=== PATIENT | male | born 1930 | race Caucasian/White ===

== ENCOUNTER 2017-07-12 21:38 | Inpatient (IN) | payer MEDICARE, OTHER ==
[2017-07-12 22:22] LABS: #Eosinphils 0.2 thou/uL (0.0-0.7); #Lymphocytes 1.6 thou/uL (1.20-3.40); #Monocytes 0.9 thou/uL (0.11-0.59); #Neutrophils 5.5 thou/uL (1.40-6.50); %Basophils 0.6 % (0.0-1.0); %Eosinophils 2.4 % (0.0-10.0); %Lymphocytes 19.3 % (21.0-51.0); %Monocytes 10.6 % (0.0-10.0); Hematocrit 32.9 % (42.0-52.0); Mean Platelet Volume 9.5 fL (7.4-10.4); Red Blood Cell (RBC) Count 3.22 mill/uL (4.70-6.10); White Blood Cell (WBC) Count 8.1 thou/uL (4.8-10.8)
--- NOTE | 2017-07-12 22:40 | RAD ---
PORTABLE UPRIGHT FRONTAL CHEST RADIOGRAPH 07/12/17 COMPARISON: None. HISTORY: Shortness of breath and cough. FINDINGS: The cardiac silhouette is enlarged. Midline sternotomy wires and mediastinal clips are present. There is perihilar and bibasilar interstitial prominence. Small bilateral pleural effusions noted. Pe rihilar and bibasilar air space disease is noted. IMPRESSION: Findings most consistent with interstitial and alveolar pulmonary edema. Infectious pneumonitis or a spiration cannot be excluded. Recommend followup imaging following treatment to document resolution. POS: [facility]
[2017-07-12 22:42] LABS: ALT (SGPT) 17 U/L (8-55); AST (SGOT) 20 U/L (5-34); Alkaline Phosphatase 92 U/L (40-150); Anion Gap 17 mmol/L (10-20); BUN (Urea Nitrogen) 96 mg/dL (8.4-25.7); Bilirubin, Total 0.6 mg/dL (0.2-1.2); CK (CPK) 87 U/L (30-200); Calc. Creatinine Clearance 0 mL/min (70-130); Calcium 8.7 mg/dL (7.8-10.44); Carbon Dioxide 19 mmol/L (23-31); Chloride 106 mmol/L (98-107); Estimated GFR-MDRD 13; Globulin 3.2 g/dL (2.4-3.5); Protein, Total 6.8 g/dL (5.8-8.1)
[2017-07-12 22:46] LABS: Troponin I 0.086 ng/mL (< 0.028)
[2017-07-12 23:54] LABS: Anion Gap 6 mmol/L (-14-95); Critical Call POC Critical Value; pH (Venous) 7.295 (7.35-7.45); vO2 Saturation-calc 77.2 % (0.0-100.0)
[2017-07-12] MEDS ORDERED: Albuterol Sulfate 2.5 mg/3 ml Neb ONE (23:56)
[2017-07-13] MEDS ORDERED: Furosemide 40 MG/4 ML VIAL ONE (00:13)
[2017-07-13] MEDS ORDERED: Furosemide 20 MG/2 ML VIAL ONE (00:13)
[2017-07-13] MEDS ORDERED: Insulin Regular 300 UNITS/3 ML VIAL ONE (00:14)
[2017-07-13] MEDS ORDERED: Sodium Bicarb 50 MEQ/50 ML Abboject 8.4% SYRINGE ONE (00:14)
[2017-07-13] MEDS ORDERED: Calcium Chloride 1 GM/10 ML Abboject SYRINGE ONE (00:14)
[2017-07-13 02:05] LABS: Troponin I 0.188 ng/mL (< 0.028)
[2017-07-13] MEDS ORDERED: Dextrose 50% Abboject 50 ML SYRINGE SLOW IVP PRN (02:24)
[2017-07-13] MEDS ORDERED: Dextrose 5% in Water 1,000 ML IV PRN (02:24)
[2017-07-13] MEDS ORDERED: Acetaminophen 325 MG TAB PO PRN (02:24)
[2017-07-13] MEDS ORDERED: Senokot 8.6 MG TAB PO PRN (02:24)
[2017-07-13] MEDS ORDERED: Guaifenesin DM 100-10/5 ML UDCUP PO PRN (02:24)
[2017-07-13 02:52] VITALS: BMI 26.9
[2017-07-13 05:19] LABS: #Lymphocytes 0.7 thou/uL (1.20-3.40); #Neutrophils 8.5 thou/uL (1.40-6.50); %Eosinophils 0.1 % (0.0-10.0); %Lymphocytes 7.2 % (21.0-51.0); %Monocytes 9.9 % (0.0-10.0); Hematocrit 32.2 % (42.0-52.0); Red Blood Cell (RBC) Count 3.14 mill/uL (4.70-6.10); White Blood Cell (WBC) Count 10.3 thou/uL (4.8-10.8)
--- NOTE | 2017-07-13 05:21 | HP ---
REASON FOR ADMISSION: Acute worsening of chronic kidney disease stage 4, metabolic acidosis, acute respiratory failure with hypoxia. HISTORY OF PRESENT ILLNESS: The patient gives history of shortness of breath, which was progressively worsening from last two weeks. Yesterday afternoon, it got worse to the point that he had to call EMS. Patient says he follows up with Dr. Himanshu Aparicio and his last three visits show that his kidney function is around 14% and thought it was stable. On a good day, the patient normally walks one mile, but yesterday was very short of breath. The patient lives at [facility] with his . He has no complaints of chest pain or palpitations. No complaints of fever or altered phlegm. Has some dry cough at present. PAST MEDICAL AND SURGICAL HISTORY: History of diabetes from last 42 years, CABG in 1998, dyslipidemia. CURRENT MEDICATIONS: The patient is on allopurinol 100 mg twice daily, Norvasc 5 mg daily, aspirin 81 mg daily, Lipitor 40 mg p.o. at bedtime, Nexium 40 mg p.o. daily, Lasix 20 mg p.o. daily, NovoLog sliding scale; NPH insulin 16 units before breakfast, 4 units before lunch and 5 units before supper; lisinopril 10 mg daily, metoprolol 50 mg twice daily, levothyroxine 112 mcg p.o. daily. ALLERGIES: To AMOXICILLIN and SULFA. PERSONAL HISTORY: Quit smoking pipe 30 years ago, but has smoked for nearly 20 years prior to that. Drinks one beer or a glass of wine daily. Does not abuse drugs. Lives with his at [facility]. FAMILY HISTORY: Mother of old age at the age of 83 years. Father at the age of 75 years. He has had history of COPD and stroke. The patient has 4 kids. 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 REVIEW OF SYSTEMS: The following complete review of systems was negative, unless otherwise mentioned in the HPI or below: Constitutional: Weight loss or gain, ability to conduct usual activities. Skin: Rash, itching. Eyes: Double vision, pain. ENT/Mouth: Nose bleeding, neck stiffness, pain, tenderness. Cardiovascular: Palpitations, dyspnea on exertion, orthopnea. Respiratory: Shortness of breath, wheezing, cough, hemoptysis, fever or night sweats. Gastrointestinal: Poor appetite, abdominal pain, heartburn, nausea, vomiting, constipation, or diarrhea. Genitourinary: Urgency, frequency, dysuria, nocturia. Musculoskeletal: Pain, swelling. Neurologic/Psychiatric: Anxiety, depression. Allergy/Immunologic: Skin rash, bleeding tendency. PHYSICAL EXAMINATION: GENERAL: The patient is an 87-year-old male who is currently not in any acute distress. VITAL SIGNS: Blood pressure 136/64, pulse 64 per minute, respiratory rate 20 per minute, temperature 98.4 degrees Fahrenheit, saturating 94% on nonrebreather and 80% on room air. NECK: Supple, no elevated JVD. HEENT: Eyes: Extraocular muscles intact. Pupils reacting to light. Oral cavity, mucous membranes are moist. No exudates or congestion. CARDIOVASCULAR: S1, S2 heard. Regular rhythm. RESPIRATORY: Air entry 1+ bilateral. No rales or rhonchi. Rales plus in the intrascapular and infrascapular areas. ABDOMEN: Soft, bowel sounds heard. No tenderness, rigidity or guarding. EXTREMITIES: No peripheral edema or calf tenderness. VASCULAR SYSTEM: Peripheral pulses 1+ bilateral. No ischemic ulcerations or gangrene. CENTRAL NERVOUS SYSTEM: No gross focal deficits seen. Patient is alert and fairly oriented. PSYCHIATRIC: The patient's mood is euthymic. No hallucinations or delusions. LABORATORY DATA AND X-RAY FINDINGS: White count of 8, H&H is 10 and 32, platelet count 161, MCV is 102 with 67% neutrophils. Sodium 136, potassium 5.9 , chloride 106, serum bicarbonate 19, BUN 96, creatinine 4.25, glucose 303. Liver enzymes are within normal limits. First set of troponin is indeterminate at 0.08, CK-MB 2.2. BNP is 2084, albumin is 3.6. Chest x-ray done shows pulmonary vascular congestion. EKG done shows sinus rhythm at 62 beats per minute with LBBB. CLINICAL IMPRESSION AND PLAN: The patient will be admitted to telemetry for acute worsening of chronic kidney disease stage 4. He has mild hyperkalemia as well. The patient was given hyperkalemia cocktail in the ER. He was given calcium chloride, 50% dextrose, Novolin R 10 units. Patient was also given 60 mg of Lasix IV push in the ER. The patient is clearly aware that he is close to hemodialysis. His lumber tying machine operator, Dr. Himanshu Aparicio will be consulted. The patient follows up with Dr. Cullen for his cardiology needs and states he follows up every 6 months with him. In view of this, we will just obtain an echo with no further cardiac workup for now. He will be on Lasix 80 mg IV q.12 hours. We will continue him on aspirin, small dose of Coreg as well. The patient states he walks up to a mile and seems to have good functional status based on patient's report. CODE STATUS: FULL and I have discussed this with the patient. We will continue to closely monitor him on telemetry. A repeat metabolic panel will be obtained this morning. ROZD
[2017-07-13] MEDS ORDERED: Furosemide 100 MG/10 ML VIAL SLOW IVP SCH ×2 (06:00→13:54)
[2017-07-13 06:19] LABS: Anion Gap 20 mmol/L (10-20); BUN (Urea Nitrogen) 97 mg/dL (8.4-25.7); Calc. Creatinine Clearance 14 mL/min (70-130); Calcium 9.2 mg/dL (7.8-10.44); Carbon Dioxide 16 mmol/L (23-31); Chloride 106 mmol/L (98-107); Estimated GFR-MDRD 13
[2017-07-13 06:35] LABS: Troponin I 0.408 ng/mL (< 0.028)
[2017-07-13] MEDS: Heparin 5,000 UNITS/ML VIAL SC SCH ×2 (08:44→21:03)
[2017-07-13] MEDS: Famotidine 20 MG TAB PO SCH (08:44)
[2017-07-13] MEDS ORDERED: Metoprolol Tartrate 25 MG TAB PO SCH (09:00)
[2017-07-13] MEDS ORDERED: Carvedilol 3.125 MG TAB PO SCH (09:00)
[2017-07-13] MEDS: HumaLOG 300 UNITS/3 ML VIAL SC PRN ×2 (11:15→17:17)
--- NOTE | 2017-07-13 13:39 | PDOC.PN ---
- Subjective Encounter Start Date: 07/13/17 Encounter Start Time: 13:37 Subjective: feels a little better.breathing easier -: no chest pain.cough for 2 weeks depsite ABX -: care discussed w - Objective Resuscitation Status: Resuscitation Status FULL:Full Resuscitation MAR Reviewed: Yes Vital Signs & Weight: Vital Signs (12 hours) Temp Pulse Resp BP Pulse Ox 07/13/17 11:45 97.9 F 63 18 110/57 L 97 07/13/17 08:45 98.5 F 74 18 98 07/13/17 04:35 99.1 F 79 20 110/53 L 100 07/13/17 02:51 98.6 F 81 21 H 98 07/13/17 02:24 98.6 F 81 21 H 128/61 98 Weight Weight 182 lb 4.8 oz I&O: 07/12/17 07/13/17 07/14/17 06:59 06:59 06:59 Output Total 200 Balance -200 Result Diagrams: 07/13/17 04:18 07/13/17 04:18 Additional Labs: Accuchecks 07/13/17 07/13/17 07/13/17 11:04 05:33 01:16 POC Glucose 453 H 298 H 217 H Laboratory Tests 07/12/17 07/12/17 07/13/17 22:12 22:12 01:09 Potassium 5.9 H Troponin I 0.086 H 0.188 H 07/13/17 07/13/17 04:18 04:18 Potassium 4.9 Troponin I 0.408 H* Radiology Reviewed by me: Yes (ECHO-low EF 40% w diastolic dysfunction as well) Phys Exam - Physical Examination Constitutional: NAD easily winded HEENT: PERRLA, moist MMs, sclera anicteric, oral pharynx no lesions Neck: no nodes, no JVD, supple, full ROM Respiratory: no wheezing, no rales, no rhonchi decreased sounds Cardiovascular: RRR, no significant murmur Gastrointestinal: soft, non-tender, no distention, positive bowel sounds Musculoskeletal: no edema, pulses present Neurological: non-focal, normal sensation, moves all 4 limbs Psychiatric: normal affect, A&O x 3 Dx/Plan (1) Acute respiratory failure Code(s): J96.00 - ACUTE RESPIRATORY FAILURE, UNSP W HYPOXIA OR HYPERCAPNIA Status: Acute (2) NSTEMI (non-ST elevated myocardial infarction) Code(s): I21.4 - NON-ST ELEVATION (NSTEMI) MYOCARDIAL INFARCTION Status: Acute Comment: likley demand ischemia (3) Acute combined systolic and diastolic congestive heart failure Code(s): I50.41 - ACUTE COMBINED SYSTOLIC AND DIASTOLIC (CONGESTIVE) HRT FAIL Status: Acute (4) CKD (chronic kidney disease) Code(s): N18.9 - CHRONIC KIDNEY DISEASE, UNSPECIFIED Status: Acute (5) Hyperkalemia Code(s): E87.5 - HYPERKALEMIA Status: Resolved (6) SARA (acute kidney injury) Code(s): N17.9 - ACUTE KIDNEY FAILURE, UNSPECIFIED Status: Acute (7) CAD (coronary artery disease) Code(s): I25.10 - ATHSCL HEART DISEASE OF [place] CORONARY ARTERY W/O ANG PCTRS Status: Chronic (8) DM2 (diabetes mellitus, type 2) Status: Chronic Qualifiers: Diabetes mellitus complication status: with kidney complications - Plan plan discussed w/ family, PT/OT, social media community manager, respiratory therapy, incentive spirometry, out of bed/ambulate, DVT proph w/SCDs Symptoms likley more due to CHF then renal failure w fluid OL. -: Accd to pt ,his GFR has been at 14 for 3 years.remains the same here -: will consult cardiology for new diagnosis of CHF.HF clinic & CR referral -: Nephrology consulted as well.? HD needed or not -: cont diuresis.monitor renal Fx.am labs.supportive care * . Review of Systems - Review of Systems Constitutional: Weakness, Malaise. negative: Fever, Chills, Sweats, Other Respiratory: Cough, SOB with Excertion. negative: Dry, Shortness of Breath, Hemoptysis, Pleuritic Pain, Sputum, Wheezing Cardiovascular: negative: Chest Pain, Palpitations, Orthopnea, Paroxysmal Noc. Dyspnea, Edema, Light Headedness, Other Gastrointestinal: negative: Nausea, Vomiting, Abdominal Pain, Diarrhea, Constipation, Melena, Hematochezia, Other Genitourinary: negative: Dysuria, Frequency, Incontinence, Hematuria, Retention , Other Musculoskeletal: negative: Neck Pain, Shoulder Pain, Arm Pain, Back Pain, Hand Pain, Leg Pain, Foot Pain, Other Neurological: negative: Weakness, Numbness, Incoordination, Change in Speech, Confusion, Seizures, Other - Medications/Allergies Allergies/Adverse Reactions: Allergies Allergy/AdvReac Type Severity Reaction Status Date / Time amoxicillin Allergy Verified 07/13/17 02:31 Sulfa (Sulfonamide Allergy Verified 07/13/17 02:31 Antibiotics) Medications: Current Medications Acetaminophen (Tylenol) 650 mg PO Q4H PRN PRN Reason: Headache/Fever or Pain Allopurinol (Zyloprim) 100 mg PO BID [facility] Amlodipine Besylate (Norvasc) 5 mg PO DAILY [facility] Aspirin (Aspirin Chewable) 81 mg PO DAILY [facility] Last Admin: 07/13/17 08:44 Dose: 81 mg Atorvastatin Calcium (Lipitor) 40 mg PO HS [facility] Dextrose/Water (Dextrose 50%) 25 gm SLOW IVP PRN PRN PRN Reason: Hypoglycemia Famotidine (Pepcid) 20 mg PO DAILY [facility] Last Admin: 07/13/17 08:44 Dose: 20 mg Furosemide (Lasix) 80 mg SLOW IVP 0600,1400 [facility] Last Admin: 07/13/17 05:24 Dose: 80 mg Glucagon (Glucagon) 1 mg IM PRN PRN PRN Reason: Hypoglycemia Guaifenesin/Dextromethorphan (Robitussin Dm) 15 ml PO Q4H PRN PRN Reason: Cough Heparin Sodium (Porcine) (Heparin) 5,000 units SC BID [facility] Last Admin: 07/13/17 08:44 Dose: 5,000 units Dextrose/Water (D5w) 1,000 mls @ 0 mls/hr IV .Q0M PRN; As Directed PRN Reason: Hypoglycemia Influenza Virus Vaccine (Fluzone High-Dose Syr) 0.5 ml IM .ONCE ONE Stop: 07/13/17 21:01 Insulin Human Lispro (Humalog) 0 units SC .MODERATE SLIDING SC PRN PRN Reason: Moderate Correctional Scale Last Admin: 07/13/17 11:15 Dose: 10 unit Levothyroxine Sodium (Synthroid) 112 mcg PO DAILY [facility] Pantoprazole Sodium (Protonix) 40 mg PO DAILY [facility] Senna (Senokot) 2 tab PO HSPRN PRN PRN Reason: Constipation Sodium Chloride (Flush - Normal Saline) 10 ml IVF Q12HR [facility] Last Admin: 07/13/17 08:51 Dose: 10 ml Sodium Chloride (Flush - Normal Saline) 10 ml IVF PRN PRN PRN Reason: Saline Flush
[2017-07-13] MEDS ORDERED: SODIUM CHLORIDE 0.9% IVPB SCH (14:45)
[2017-07-13] MEDS ORDERED: FUROSEMIDE IVPB SCH (14:45)
--- NOTE | 2017-07-13 17:40 | CON ---
CARDIOLOGY CONSULTATION NOTE DATE OF CONSULTATION: 07/13/2017 REASON FOR CONSULTATION: Heart failure. PRIMARY RESP THERAPIST: Dr. Steve Cullen. HISTORY OF PRESENT ILLNESS: Mr. Garrison is a very pleasant 87-year-old white gentleman who comes to the hospital for increasing shortness of breath. He has been followed by Dr. Aparicio for renal dys function. His baseline creatinine is around 3.52-4.1. He comes in as he has been experiencing incre asing worsening shortness of breath for the last 2 weeks. Yesterday, got to the point where he felt he needed to call EMS, who came and brought in for evaluation. He has been admitted for acute exacer bation of his heart failure. He does have a history of ischemic cardiomyopathy with a bypass in 1998 . Unclear of what his LV function has been recently. There is no information in the system for this . He is not aware of having been told that he had a weak heart versus just were that he was told of having a weak heart or anything of that sort. Currently, he continues to be short of breath. He was given 80 mg IV of Lasix and he has been diuresed well. PAST MEDICAL HISTORY: 1. Diabetes. 2. Coronary artery bypass grafting in 1998. 3. Hyperlipidemia. 4. Chronic kidney disease stage 4. 5. Hypertension. 6. Gastroesophageal reflux disease okay continue. OUTPATIENT MEDICATIONS: Include; 1. Allopurinol 100 mg twice a day. 2. Norvasc 5 mg a day. 3. Aspirin 81 a day. 4. Lipitor 40 mg at bedtime. 5. Nexium 40 mg a day. 6. Lasix 20 mg p.o. daily. 7. NovoLog sliding scale. 8. NPH insulin before meals. 9. Lisinopril 10 mg a day. 10. Metoprolol 50 mg b.i.d. 11. Levothyroxine 112 mcg a day. ALLERGIES: AMOXICILLIN and SULFA DRUGS. SOCIAL HISTORY: Quit smoking 30 years ago. One beer or a glass of wine daily. No drug use. FAMILY HISTORY: Noncontributory. REVIEW OF SYSTEMS: A 12-point review of systems was done and is all negative unless stated in the hi story of present illness. PHYSICAL EXAMINATION: VITAL SIGNS: Temperature 97.9, pulse 63, respiratory rate 18, satting 97% on 6 liters and blood pres sure 110/57. GENERAL: Awake, alert and oriented x3, in mild respiratory distress, sitting at almost 90 degrees. HEENT: Normocephalic and atraumatic. NECK: Supple with JVP at about 15 cm of water. LUNGS: Have bilateral crackles. CARDIOVASCULAR: S1 and S2. No S3 or S4. ABDOMEN: Soft. EXTREMITIES: Trace edema. SKIN: Warm and dry. LABORATORY AND IMAGING DATA: Laboratory work was reviewed. Creatinine at 4.49, troponin at 0.18 and then 0.40. GFR of 13 and glucose of 310. Sodium is 137 and potassium is 4.9, it was 6.9 venous on arrival overnight. EKG was reviewed . Chest x-ray was reviewed. Echocardiogram was reviewed. ASSESSMENT: 1. Acute on chronic systolic dysfunction. It is unclear what his left ventricular function was befo re, but currently it is reduced about 35% to 40% with some regional wall motion abnormalities. 2. Acute kidney injury on chronic kidney disease. 3. Chronic kidney disease stage 4, now stage 5. 4. Coronary artery disease. 5. Non-ST elevation myocardial infarction: Likely demand ischemia from his acute exacerbation. PLAN: 1. Most likely he will need hemodialysis. We can get his fluid out with an increasing doses of Lasi x. Dr. Aparicio will see him sometime later today and will make a decision on whether he is a candidat e for dialysis at this time or not. It would be prohibitive to do heart catheterization with this le camryn of creatinine for now. 2. I would increase the dose of Lasix to 220 IV and see if this makes any difference, but this is un likely. Thank you for letting us participate in the care of your patient. We will follow.
[2017-07-13] MEDS ORDERED: FLU VACC TS2017-18 (>65YR) 0.5 ML SYRINGE IM ONE (21:00)
[2017-07-13] MEDS ORDERED: Metoprolol Tartrate 50 MG TAB PO SCH (21:00)
[2017-07-13] MEDS: Atorvastatin Calcium 40 MG TAB PO SCH (21:03)
[2017-07-13] MEDS: Allopurinol 100 MG TAB PO SCH (21:03)
[2017-07-14] MEDS: FUROSEMIDE IVPB SCH ×2 (05:35→14:45)
[2017-07-14] MEDS: SODIUM CHLORIDE 0.9% IVPB SCH ×2 (05:35→14:45)
[2017-07-14] MEDS: Levothyroxine Sodium 112 MCG TAB PO SCH (08:27)
[2017-07-14] MEDS: Famotidine 20 MG TAB PO SCH (08:27)
[2017-07-14] MEDS: Amlodipine 5 MG TAB PO SCH (08:27)
[2017-07-14] MEDS: Heparin 5,000 UNITS/ML VIAL SC SCH ×2 (08:27→21:10)
[2017-07-14] MEDS: Allopurinol 100 MG TAB PO SCH ×2 (08:27→21:13)
[2017-07-14] MEDS ORDERED: Lisinopril 10 MG TAB PO SCH (09:00)
[2017-07-14] MEDS ORDERED: Amlodipine 5 MG TAB PO SCH (09:00)
[2017-07-14] MEDS: HumaLOG 300 UNITS/3 ML VIAL SC PRN ×2 (11:29→21:06)
--- NOTE | 2017-07-14 11:34 | ULT ---
BILATERAL RENAL ULTRASOUND: Date: 07/14/17 HISTORY: Renal failure. Dialysis placement. COMPARISON: None. TECHNIQUE: Story scale, color flow, Doppler imaging, and spectral waveform analysis of the left and kidney perfor med. FINDINGS: There is a right-sided pleural effusion. Right kidney demonstrates cortical thinning. No hydronephrosis. Right kidney measures 8.3 x 4.9 x 4.6 cm. Left kidney demonstrated cortical thinning. No hydronephrosis. Septated possibly complex cyst in the left kidney measuring 3.1 x 2.4 x 3.1 cm is noted. Overall, the left kidney measures 9.1 x 5.1 x 4.7 cm. 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 There is also elevatio n of the left arcuate artery resistive index suggesting medical renal disease. POS: [facility]
--- NOTE | 2017-07-14 11:40 | ULT ---
ULTRASOUND VESSEL MAPPING FOR DIALYSIS: Date: 07/14/17 HISTORY: Vein mapping for end-stage renal disease. COMPARISON: None. TECHNIQUE: Story scale, color flow, Doppler imaging, and spectral waveform analysis performed of left and right u pper extremity arteriovenous system. FINDINGS: RIGHT UPPER EXTREMITY BRACHIAL ARTERY: 5.2 mm RADIAL ARTERY: 3.0 mm ULNAR ARTERY: 2.5 mm CEPHALIC VEIN Proximal Humerus: 2.8 mm Mid Humerus: 2.5 mm Distal Humerus: 3.9 mm Antecubital Fossa: 2.7 mm Proximal Forearm: 4.5 mm Mid Forearm: 3.4 mm Distal Forearm: 3.1 mm BASILIC VEIN Proximal Humerus: 5.5 mm Mid Humerus: 5.3 mm Distal Humerus: 4.6 mm Antecubital Fossa: 4.1 mm Proximal Forearm: 3.5 mm Mid Forearm: 2.1 mm Distal Forearm: 2.1 mm LEFT UPPER EXTREMITY BRACHIAL ARTERY: 4.8 mm RADIAL ARTERY: 3.3 mm ULNAR ARTERY: 2.4 mm CEPHALIC VEIN Proximal Humerus: 1.3 mm Mid Humerus: 1.5 mm Distal Humerus: 1.4 mm Antecubital Fossa: 2.1 mm Proximal Forearm: 1.9 mm Mid Forearm: 2.0 mm Distal Forearm: 2.0 mm BASILIC VEIN Proximal Humerus: 5.1 mm Mid Humerus: 5.9 mm Distal Humerus: 2.2 mm Antecubital Fossa: 2.1 mm Proximal Forearm: 1.7 mm Mid Forearm: 1.4 mm Distal Forearm: 1.9 mm IMPRESSION: Venous mapping as above. POS: [facility]
--- NOTE | 2017-07-14 12:50 | PDOC.CTH ---
Cardiology Progress Note - Subjective Since increasing his Lasix he has urinated much better and he feels a marked improvement in his breathing. He is now able to get little flatter and has slept. - Objective Vital Signs Temp Pulse Resp BP Pulse Ox 07/14/17 08:20 98.1 F 70 16 131/68 98 07/14/17 04:23 96 07/14/17 04:00 98.3 F 69 18 145/65 H 95 Weight 176 lb 14.4 oz 07/13/17 07/14/17 07/15/17 06:59 06:59 06:59 Intake Total 1162 Output Total 2227 Balance -1065 - Physical Examination General/Neuro: alert & oriented x3, NAD Neck: no JVD present Lungs: unlabored respirations, other: (Crackles at bases.) Heart: RRR Abdomen: NT/ND Extremities: + edema B (trace) - Telemetry Telemetry Rhythm: NSR - Labs Result Diagrams: 07/13/17 04:18 07/13/17 04:18 Troponin/CKMB CK-MB (CK-2) 2.2 ng/mL (0-6.6) 07/12/17 22:12 Troponin I 0.408 ng/mL (< 0.028) H* 07/13/17 04:18 - Assessment/Plan 1. Acute on chronic systolic heart failure. 2. CKD stage 5 3. Ischemic CM. PLAN: - Continue current lasix dose. - Dr. Aparicio following for his renal function.
--- NOTE | 2017-07-14 13:08 | PDOC.PN ---
- Subjective Encounter Start Date: 07/14/17 Encounter Start Time: 13:06 Subjective: feels much better.breathing easier - Objective Resuscitation Status: Resuscitation Status FULL:Full Resuscitation MAR Reviewed: Yes Vital Signs & Weight: Vital Signs (12 hours) Temp Pulse Resp BP Pulse Ox 07/14/17 12:10 97.8 F 70 18 134/62 96 07/14/17 08:20 98.1 F 70 16 131/68 98 07/14/17 04:23 96 07/14/17 04:00 98.3 F 69 18 145/65 H 95 Weight Weight 176 lb 14.4 oz I&O: 07/13/17 07/14/17 07/15/17 06:59 06:59 06:59 Intake Total 1162 Output Total 2227 Balance -1065 Result Diagrams: 07/13/17 04:18 07/13/17 04:18 Additional Labs: Accuchecks 07/14/17 07/13/17 07/13/17 05:46 20:16 16:49 POC Glucose 300 H 148 H 233 H Laboratory Tests 07/12/17 22:09 B-Natriuretic Peptide 2084.2 H Phys Exam - Physical Examination Constitutional: NAD HEENT: PERRLA, moist MMs, sclera anicteric, oral pharynx no lesions Neck: no nodes, no JVD, supple, full ROM Respiratory: no wheezing, no rales, no rhonchi, clear to auscultation bilateral Cardiovascular: RRR, no significant murmur, no rub, gallop Gastrointestinal: soft, non-tender, no distention, positive bowel sounds Musculoskeletal: no edema, pulses present Neurological: non-focal, normal sensation, moves all 4 limbs Psychiatric: normal affect, A&O x 3 Skin: no rash Dx/Plan (1) Acute respiratory failure Code(s): J96.00 - ACUTE RESPIRATORY FAILURE, UNSP W HYPOXIA OR HYPERCAPNIA Status: Acute (2) NSTEMI (non-ST elevated myocardial infarction) Code(s): I21.4 - NON-ST ELEVATION (NSTEMI) MYOCARDIAL INFARCTION Status: Acute Comment: ed[place] demand ischemia (3) Acute combined systolic and diastolic congestive heart failure Code(s): I50.41 - ACUTE COMBINED SYSTOLIC AND DIASTOLIC (CONGESTIVE) HRT FAIL Status: Acute (4) CKD (chronic kidney disease) Code(s): N18.9 - CHRONIC KIDNEY DISEASE, UNSPECIFIED Status: Acute (5) Hyperkalemia Code(s): E87.5 - HYPERKALEMIA Status: Resolved (6) SARA (acute kidney injury) Code(s): N17.9 - ACUTE KIDNEY FAILURE, UNSPECIFIED Status: Acute (7) CAD (coronary artery disease) Code(s): I25.10 - ATHSCL HEART DISEASE OF [place] CORONARY ARTERY W/O ANG PCTRS Status: Chronic (8) DM2 (diabetes mellitus, type 2) Status: Chronic Qualifiers: Diabetes mellitus complication status: with kidney complications - Plan PT/OT, health social work professor, respiratory therapy, incentive spirometry, out of bed/ ambulate, DVT proph w/SCDs Pt does not want HD started at this time. -: improved fluid status w IV lasix. -: cont medical optimization w OP f/u w as per Pt. -: I/Os,daily weight. -: renal function stable.monitor. * . Review of Systems - Review of Systems Constitutional: negative: Fever, Chills, Sweats, Weakness, Malaise, Other ENT: negative: Ear Pain, Ear Discharge, Nose Pain, Nose Discharge, Nose Congestion, Mouth Pain, Mouth Swelling, Throat Pain, Throat Swelling, Other Respiratory: SOB with Excertion. negative: Cough, Dry, Shortness of Breath, Hemoptysis, Pleuritic Pain, Sputum, Wheezing Cardiovascular: negative: Chest Pain, Palpitations, Orthopnea, Paroxysmal Noc. Dyspnea, Edema, Light Headedness, Other Gastrointestinal: negative: Nausea, Vomiting, Abdominal Pain, Diarrhea, Constipation, Melena, Hematochezia, Other Genitourinary: negative: Dysuria, Frequency, Incontinence, Hematuria, Retention , Other Musculoskeletal: negative: Neck Pain, Shoulder Pain, Arm Pain, Back Pain, Hand Pain, Leg Pain, Foot Pain, Other Neurological: negative: Weakness, Numbness, Incoordination, Change in Speech, Confusion, Seizures, Other - Medications/Allergies Allergies/Adverse Reactions: Allergies Allergy/AdvReac Type Severity Reaction Status Date / Time amoxicillin Allergy Verified 07/13/17 02:31 Sulfa (Sulfonamide Allergy Verified 07/13/17 02:31 Antibiotics) Medications: Current Medications Acetaminophen (Tylenol) 650 mg PO Q4H PRN PRN Reason: Headache/Fever or Pain Allopurinol (Zyloprim) 100 mg PO BID [facility] Last Admin: 07/14/17 08:27 Dose: 100 mg Amlodipine Besylate (Norvasc) 5 mg PO DAILY [facility] Last Admin: 07/14/17 08:27 Dose: 5 mg Aspirin (Aspirin Chewable) 81 mg PO DAILY [facility] Last Admin: 07/14/17 08:27 Dose: 81 mg Atorvastatin Calcium (Lipitor) 40 mg PO HS [facility] Last Admin: 07/13/17 21:03 Dose: 40 mg Dextrose/Water (Dextrose 50%) 25 gm SLOW IVP PRN PRN PRN Reason: Hypoglycemia Famotidine (Pepcid) 20 mg PO DAILY [facility] Last Admin: 07/14/17 08:27 Dose: 20 mg Glucagon (Glucagon) 1 mg IM PRN PRN PRN Reason: Hypoglycemia Guaifenesin/Dextromethorphan (Robitussin Dm) 15 ml PO Q4H PRN PRN Reason: Cough Heparin Sodium (Porcine) (Heparin) 5,000 units SC BID [facility] Last Admin: 07/14/17 08:27 Dose: 5,000 units Dextrose/Water (D5w) 1,000 mls @ 0 mls/hr IV .Q0M PRN; As Directed PRN Reason: Hypoglycemia Furosemide 120 mg/ Sodium (Chloride) 62 mls @ 124 mls/hr IVPB 0600,1400 [facility] Last Admin: 07/14/17 05:35 Dose: 62 mls Insulin Human Lispro (Humalog) 0 units SC .MODERATE SLIDING SC PRN PRN Reason: Moderate Correctional Scale Last Admin: 07/14/17 11:29 Dose: 10 unit Levothyroxine Sodium (Synthroid) 112 mcg PO DAILY [facility] Last Admin: 07/14/17 08:27 Dose: 112 mcg Pantoprazole Sodium (Protonix) 40 mg PO DAILY [facility] Last Admin: 07/14/17 08:27 Dose: 40 mg Senna (Senokot) 2 tab PO HSPRN PRN PRN Reason: Constipation Sodium Chloride (Flush - Normal Saline) 10 ml IVF Q12HR [facility] Last Admin: 07/14/17 08:28 Dose: 10 ml Sodium Chloride (Flush - Normal Saline) 10 ml IVF PRN PRN PRN Reason: Saline Flush
[2017-07-14] MEDS: Atorvastatin Calcium 40 MG TAB PO SCH (21:05)
[2017-07-15 05:47] LABS: #Eosinphils 0.4 thou/uL (0.0-0.7); #Lymphocytes 1.4 thou/uL (1.20-3.40); #Monocytes 1.1 thou/uL (0.11-0.59); #Neutrophils 5.1 thou/uL (1.40-6.50); %Basophils 0.5 % (0.0-1.0); %Eosinophils 4.8 % (0.0-10.0); %Lymphocytes 17.7 % (21.0-51.0); Hematocrit 30.8 % (42.0-52.0); Mean Platelet Volume 10.4 fL (7.4-10.4); Red Blood Cell (RBC) Count 3.07 mill/uL (4.70-6.10); White Blood Cell (WBC) Count 8.1 thou/uL (4.8-10.8)
[2017-07-15] MEDS: SODIUM CHLORIDE 0.9% IVPB SCH ×2 (06:07→14:55)
[2017-07-15] MEDS: FUROSEMIDE IVPB SCH ×2 (06:07→14:55)
[2017-07-15 06:12] LABS: Anion Gap 16 mmol/L (10-20); BUN (Urea Nitrogen) 102 mg/dL (8.4-25.7); Calc. Creatinine Clearance 13 mL/min (70-130); Carbon Dioxide 24 mmol/L (23-31); Chloride 102 mmol/L (98-107); Estimated GFR-MDRD 13
[2017-07-15] MEDS: Heparin 5,000 UNITS/ML VIAL SC SCH ×2 (08:57→20:37)
[2017-07-15] MEDS: HumaLOG 300 UNITS/3 ML VIAL SC PRN ×4 (08:57→20:55)
[2017-07-15] MEDS: Levothyroxine Sodium 112 MCG TAB PO SCH (08:58)
[2017-07-15] MEDS: Allopurinol 100 MG TAB PO SCH ×2 (08:58→20:37)
[2017-07-15] MEDS: Famotidine 20 MG TAB PO SCH (08:58)
[2017-07-15] MEDS: Amlodipine 5 MG TAB PO SCH (08:58)
--- NOTE | 2017-07-15 14:09 | PDOC.PN ---
- Subjective Encounter Start Date: 07/15/17 Encounter Start Time: 14:07 Subjective: feels much better. walked w PT w/o oxygen -: breathing almost back to baseline - Objective Resuscitation Status: Resuscitation Status FULL:Full Resuscitation MAR Reviewed: Yes Vital Signs & Weight: Vital Signs (12 hours) Temp Pulse Pulse Pulse Resp BP BP 07/15/17 12:22 98.9 F 76 16 07/15/17 10:20 85 76 110/58 L 106/57 L 07/15/17 08:45 98.1 F 80 16 07/15/17 08:40 98.1 F 80 16 07/15/17 04:32 98.5 F 74 17 BP Pulse Ox Pulse Ox Pulse Ox 07/15/17 12:22 121/59 L 95 07/15/17 10:20 95 95 07/15/17 08:45 93 L 07/15/17 08:40 127/60 93 L 07/15/17 04:32 133/63 96 Weight Weight 168 lb I&O: 07/14/17 07/15/17 07/16/17 06:59 06:59 06:59 Intake Total 1162 720 Output Total 5073 0755 Balance -6057 -5095 Result Diagrams: 07/15/17 05:00 07/15/17 05:00 Additional Labs: Accuchecks 07/15/17 07/15/17 07/14/17 11:14 05:54 19:50 POC Glucose 341 H 191 H 267 H 07/14/17 07/14/17 17:07 11:21 POC Glucose 115 H 420 H Laboratory Tests 06/17/17 07/12/17 07/13/17 06:58 22:12 04:18 BUN 96 H 97 H Creatinine 4.12 H 4.25 H 4.49 H Estimated GFR (MDRD) 14 13 13 07/15/17 05:00 BUN 102 H Creatinine 4.37 H Estimated GFR (MDRD) 13 Phys Exam - Physical Examination Constitutional: NAD HEENT: PERRLA, moist MMs, sclera anicteric, oral pharynx no lesions Neck: no nodes, no JVD, supple, full ROM Respiratory: no wheezing, no rales, no rhonchi, clear to auscultation bilateral Cardiovascular: RRR, no significant murmur Gastrointestinal: soft, non-tender, no distention, positive bowel sounds Musculoskeletal: no edema, pulses present Neurological: non-focal, normal sensation, moves all 4 limbs Psychiatric: normal affect, A&O x 3 Skin: no rash Dx/Plan (1) Acute combined systolic and diastolic congestive heart failure Code(s): I50.41 - ACUTE COMBINED SYSTOLIC AND DIASTOLIC (CONGESTIVE) HRT FAIL Status: Acute (2) NSTEMI (non-ST elevated myocardial infarction) Code(s): I21.4 - NON-ST ELEVATION (NSTEMI) MYOCARDIAL INFARCTION Status: Acute Comment: edson demand ischemia (3) CKD (chronic kidney disease) Code(s): N18.9 - CHRONIC KIDNEY DISEASE, UNSPECIFIED Status: Acute (4) Hyperkalemia Code(s): E87.5 - HYPERKALEMIA Status: Acute (5) SARA (acute kidney injury) Code(s): N17.9 - ACUTE KIDNEY FAILURE, UNSPECIFIED Status: Resolved (6) CAD (coronary artery disease) Code(s): I25.10 - ATHSCL HEART DISEASE OF [place] CORONARY ARTERY W/O ANG PCTRS Status: Chronic (7) DM2 (diabetes mellitus, type 2) Status: Chronic Qualifiers: Diabetes mellitus complication status: with kidney complications (8) Acute respiratory failure Code(s): J96.00 - ACUTE RESPIRATORY FAILURE, UNSP W HYPOXIA OR HYPERCAPNIA Status: Resolved - Plan PT/OT, respiratory therapy, incentive spirometry, out of bed/ambulate, DVT proph w/SCDs Cont diuresis w close monitoring of renal Fx. cardiology & Nephrology follo -: Pt w significant improvement in his symptoms w high dose diuresis -: pt does not want HD for now.will discuss w His residential roofer -: [place] DC home tomorrow if stable. * . Review of Systems - Review of Systems Constitutional: negative: Fever, Chills, Sweats, Weakness, Malaise, Other Respiratory: negative: Cough, Dry, Shortness of Breath, Hemoptysis, SOB with Excertion, Pleuritic Pain, Sputum, Wheezing Cardiovascular: negative: Chest Pain, Palpitations, Orthopnea, Paroxysmal Noc. Dyspnea, Edema, Light Headedness, Other Gastrointestinal: negative: Nausea, Vomiting, Abdominal Pain, Diarrhea, Constipation, Melena, Hematochezia, Other Genitourinary: negative: Dysuria, Frequency, Incontinence, Hematuria, Retention , Other Musculoskeletal: negative: Neck Pain, Shoulder Pain, Arm Pain, Back Pain, Hand Pain, Leg Pain, Foot Pain, Other Neurological: negative: Weakness, Numbness, Incoordination, Change in Speech, Confusion, Seizures, Other - Medications/Allergies Allergies/Adverse Reactions: Allergies Allergy/AdvReac Type Severity Reaction Status Date / Time amoxicillin Allergy Verified 07/13/17 02:31 Sulfa (Sulfonamide Allergy Verified 07/13/17 02:31 Antibiotics) Medications: Current Medications Acetaminophen (Tylenol) 650 mg PO Q4H PRN PRN Reason: Headache/Fever or Pain Allopurinol (Zyloprim) 100 mg PO BID [facility] Last Admin: 07/15/17 08:58 Dose: 100 mg Amlodipine Besylate (Norvasc) 5 mg PO DAILY [facility] Last Admin: 07/15/17 08:58 Dose: 5 mg Aspirin (Aspirin Chewable) 81 mg PO DAILY [facility] Last Admin: 07/15/17 08:58 Dose: 81 mg Atorvastatin Calcium (Lipitor) 40 mg PO HS [facility] Last Admin: 07/14/17 21:05 Dose: 40 mg Dextrose/Water (Dextrose 50%) 25 gm SLOW IVP PRN PRN PRN Reason: Hypoglycemia Famotidine (Pepcid) 20 mg PO DAILY [facility] Last Admin: 07/15/17 08:58 Dose: 20 mg Glucagon (Glucagon) 1 mg IM PRN PRN PRN Reason: Hypoglycemia Guaifenesin/Dextromethorphan (Robitussin Dm) 15 ml PO Q4H PRN PRN Reason: Cough Heparin Sodium (Porcine) (Heparin) 5,000 units SC BID [facility] Last Admin: 07/15/17 08:57 Dose: 5,000 units Dextrose/Water (D5w) 1,000 mls @ 0 mls/hr IV .Q0M PRN; As Directed PRN Reason: Hypoglycemia Furosemide 120 mg/ Sodium (Chloride) 62 mls @ 124 mls/hr IVPB 0600,1400 [facility] Last Admin: 07/15/17 06:07 Dose: 62 mls Insulin Human Lispro (Humalog) 0 units SC .MODERATE SLIDING SC PRN PRN Reason: Moderate Correctional Scale Last Admin: 07/15/17 11:57 Dose: 8 unit Levothyroxine Sodium (Synthroid) 112 mcg PO DAILY [facility] Last Admin: 07/15/17 08:58 Dose: 112 mcg Pantoprazole Sodium (Protonix) 40 mg PO DAILY [facility] Last Admin: 07/15/17 08:58 Dose: 40 mg Senna (Senokot) 2 tab PO HSPRN PRN PRN Reason: Constipation Sodium Chloride (Flush - Normal Saline) 10 ml IVF Q12HR [facility] Last Admin: 07/15/17 08:58 Dose: 10 ml Sodium Chloride (Flush - Normal Saline) 10 ml IVF PRN PRN PRN Reason: Saline Flush
--- NOTE | 2017-07-15 15:52 | PDOC.CTH ---
Cardiology Progress Note - Subjective He is doing better. His breathing is back to normal. - Objective Vital Signs Temp Pulse Pulse Pulse Resp BP BP 07/15/17 12:22 98.9 F 76 16 07/15/17 10:20 85 76 110/58 L 106/57 L 07/15/17 08:45 98.1 F 80 16 07/15/17 08:40 98.1 F 80 16 07/15/17 04:32 98.5 F 74 17 BP Pulse Ox Pulse Ox Pulse Ox 07/15/17 12:22 121/59 L 95 07/15/17 10:20 95 95 07/15/17 08:45 93 L 07/15/17 08:40 127/60 93 L 07/15/17 04:32 133/63 96 Weight 168 lb 07/14/17 07/15/17 07/16/17 06:59 06:59 06:59 Intake Total 1162 720 Output Total 2229 3275 Balance -5635 -9603 - Physical Examination General/Neuro: alert & oriented x3, NAD Neck: no JVD present Lungs: unlabored respirations Heart: RRR Abdomen: NT/ND Extremities: + edema B (no edema.) - Telemetry Telemetry Rhythm: NSR - Labs Result Diagrams: 07/15/17 05:00 07/15/17 05:00 Troponin/CKMB CK-MB (CK-2) 2.2 ng/mL (0-6.6) 07/12/17 22:12 Troponin I 0.408 ng/mL (< 0.028) H* 07/13/17 04:18 - Assessment/Plan 1. Acute on chronic systolic heart failure. Improved. 2. CKD stage 5 3. Ischemic CM. PLAN: - Switch lasix to PO 80 mg BID. - Dr. Aparicio following for his renal function. - May discharge home from cardiac perspective at any time. - He will follow up with Dr. Cullen as scheduled.
[2017-07-15] MEDS: Atorvastatin Calcium 40 MG TAB PO SCH (20:37)
[2017-07-16 06:51] LABS: Anion Gap 18 mmol/L (10-20); BUN (Urea Nitrogen) 101 mg/dL (8.4-25.7); Calc. Creatinine Clearance 13 mL/min (70-130); Calcium 9.2 mg/dL (7.8-10.44); Carbon Dioxide 24 mmol/L (23-31); Chloride 102 mmol/L (98-107); Estimated GFR-MDRD 13
[2017-07-16] MEDS ORDERED: SODIUM CHLORIDE 0.9% IVPB SCH (09:00)
[2017-07-16] MEDS ORDERED: Lisinopril 2.5 MG TAB PO SCH (09:00)
[2017-07-16] MEDS ORDERED: FUROSEMIDE IVPB SCH (09:00)
[2017-07-16] MEDS ORDERED: Carvedilol 3.125 MG TAB PO SCH ×2 (09:30→17:00)
[2017-07-16] MEDS: Famotidine 20 MG TAB PO SCH (09:45)
[2017-07-16] MEDS: Furosemide 80 MG TAB PO SCH ×2 (09:45→14:08)
[2017-07-16] MEDS: Allopurinol 100 MG TAB PO SCH (09:45)
[2017-07-16] MEDS: Amlodipine 5 MG TAB PO SCH (09:46)
[2017-07-16] MEDS: Heparin 5,000 UNITS/ML VIAL SC SCH (09:46)
[2017-07-16] MEDS: Levothyroxine Sodium 112 MCG TAB PO SCH (09:46)
[2017-07-16] MEDS: HumaLOG 300 UNITS/3 ML VIAL SC PRN (09:52)
[2017-07-16 11:53] VITALS: BP 110/53; TEMP 98.8
--- NOTE | 2017-07-16 22:24 | DIS ---
DATE OF ADMISSION: 07/13/2017 DATE OF DISCHARGE: 07/16/2017 CONDITION AT THE TIME OF DISCHARGE: Stable and improved. PRIMARY CARE PHYSICIAN: Dr. Bucky Infante. PRIMARY SENIOR CHEMICAL PROCESS ENGINEER: Dr. Himanshu Aparicio. PRIMARY STRATEGIC COMMUNICATIONS MANAGER: Dr. Steve Cullen. DISCHARGE DIAGNOSES: 1. Acute on chronic systolic congestive heart failure. 2. Acute on chronic kidney disease stage 5. 3. Hypertension. 4. Fluid overload due to #1. 5. Diabetes mellitus type 2. 6. History of coronary artery disease. DISCHARGE MEDICATIONS: New medications as follows, Coreg 3.125 mg p.o. b.i.d., Lasix 80 mg p.o. b.i. d. and lisinopril dose has decreased to 2.5 mg p.o. b.i.d. Discontinue metoprolol tartrate. Resume home medication including; 1. Insulin. 2. Levothyroxine 112 mcg daily. 3. Nexium 20 mg daily. 4. Lipitor 40 mg daily. 5. Aspirin 81 mg daily. 6. Allopurinol 100 mg p.o. b.i.d. INHOUSE CONSULTATIONS: Include; 1. Cardiology, Dr. Banuelos. 2. Nephrology, Dr. Aparicio. PROCEDURES DONE IN THE HOUSE: Include: 1. Echocardiogram, which shows an ejection fraction low at 35% to 40% with grade 2/3 diastolic dysfu nction and hypokinesis of the inferior lateral wall. Left ventricular size is moderately increased. Moderate to severe mitral regurgitation and mildly elevated pulmonary arterial pressure of 45 mmHg. 2. Ultrasound all the abdomen and pelvis, which showed suggestion of significant stenosis of the lef t renal artery. 3. Renal ultrasounds, which shows medical renal disease on the left side. 4. ultrasound for possible hemodialysis access. HISTORY OF PRESENTING ILLNESS: Mr. Garrison is a very pleasant 87-year-old male with past medical history of chronic kidney disease, still not on dialysis as well as coronary artery disease and diabe kamilla, who presented to the emergency room for complaints of shortness of breath, poor appetite, malais e and weight gain. Upon presentation, he was found to be in gross fluid overload and he was diagnose d with acute on chronic kidney insufficiency with mild hyperkalemia. He was still able to make urine , so he was given Lasix in the emergency room and was admitted for possible starting of the hemodialy sis. His gas meter checker, Dr. Himanshu Aparicio was also consulted. He was continued on IV diuresis. Ple ase see admission history and physical for further details. HOSPITAL COURSE: The patient was diuresed he discussed the possibility of hemodialysis with his neph rologist. He actually underwent vein mapping, but at this time he did not want to get it started as his chronic kidney functions seems to be stable with a GFR of 13-14. He underwent a transthoracic ec hocardiogram to rule out cardiac causes for fluid overloaded and indeed, he was found to have severe systolic dysfunction with an EF of 35% to 40%. Given this fact, Cardiology was consulted and Dr. Col jacobo saw the patient. He agreed with aggressive diuresis and diuretic dose was increased with very go od response. All this time, his kidney function remained stable with a GFR of 13. The patient was w eaned off of oxygen successfully and was walking up and down the ramires with significant improvement in his symptoms and returned back to baseline. His diuresis was changed to oral, which he also tolerat ed very well. He was cleared for discharge from a Cardiology perspective. Once again, at this time, he did not want dialysis initiated, but would rather discuss the care with his waxed bag machine operator, Dr. Cullen, to see if medically optimization of his congestive heart failure would keep him from dialysis for a little while longer. Given his ejection fraction less than 40%, he was started on Coreg as well as continued on lisinopril . His lisinopril dose was decreased as his Lasix dose was increased and the risk of low blood pressu re was quite high for this gentleman. I discussed the medication changes with him extensively. Even though he understood, he was having somewhat difficult time to understand why I am making these medi cation changes. I did encourage him to discuss this further with his primary care physician and his waxed bag machine operator. Written instructions were provided to the patient as well. He was seen and examined prior to discharge and he has no new complaints and is eager to go home. PHYSICAL EXAMINATION: Include; VITAL SIGNS: Temperature 98.8, pulse of 84, respirations 14, saturating 92% to 94% on room air, bloo d pressure 110/53. GENERAL: No acute distress, awake, alert and oriented x3. CHEST: Clear to auscultation without any wheezing, rales or rhonchi. Rate and rhythm is regular. LABORATORY DATA: His CBC shows hemoglobin of 10.4, otherwise unremarkable. Serum chemistries showed a BUN of 101, creatinine 4.35 with a GFR of 13. His troponins were trended and they peaked up to 0. 408, which was thought secondary to demand ischemia from acute CHF. His BNP was found to be elevated at over 2000. Discharge plan was discussed with the patient. Outpatient cardiac rehabilitation was set up for him as well as heart failure disease management was discussed. He is instructed about fluid restricted h eart healthy diet as well. Total time spent in the discharge of this patient 35 minutes including [id number] interaction.
== END 2017-07-16 15:12 | disposition home or self-care (01) | DRG 291 ==
LOC: ERS 21:38 → 2NO 07-13 00:30
PROVIDERS: ADMIT Internal Medicine; ATTEND Internal Medicine
DX: I13.2 Hypertensive heart and chronic kidney disease with heart failure and with stage 5 chronic kidney disease, or end stage renal disease (principal); J96.01 Acute respiratory failure with hypoxia; N17.9 Acute kidney failure, unspecified; E87.2 Acidosis; I50.23 Acute on chronic systolic (congestive) heart failure; N18.5 Chronic kidney disease, stage 5; I24.8 Other forms of acute ischemic heart disease; E87.5 Hyperkalemia; E11.22 Type 2 diabetes mellitus with diabetic chronic kidney disease; I70.1 Atherosclerosis of renal artery; I25.5 Ischemic cardiomyopathy; K21.9 Gastro-esophageal reflux disease without esophagitis; I99.8 Other disorder of circulatory system; I25.10 Atherosclerotic heart disease of native coronary artery without angina pectoris; E78.5 Hyperlipidemia, unspecified; E03.9 Hypothyroidism, unspecified; M10.9 Gout, unspecified; Z79.82 Long term (current) use of aspirin; Z95.5 Presence of coronary angioplasty implant and graft; Z87.891 Personal history of nicotine dependence; Z88.0 Allergy status to penicillin; Z88.2 Allergy status to sulfonamides; Z82.61 Family history of arthritis; Z82.3 Family history of stroke; Z83.6 Family history of other diseases of the respiratory system
CPT/HCPCS: 36415; 36416; 71010; 76700; 76770; 80048; 80053; 80069; 82330; 82553; 82803; 83880; 84484; 85025; 93005; 93306; 93798; 93970; 96374; 96375; 99292; A4216; G0365; J0692; J1644; J1815; J1940; J7050; J7611; J7620

== ENCOUNTER 2017-09-09 09:30 | Inpatient (IN) | payer MEDICARE ==
[2017-09-09 11:07] VITALS: BMI 24.4
[2017-09-09] MEDS ORDERED: Dextrose 50% Abboject 50 ML SYRINGE SLOW IVP PRN (11:24)
[2017-09-09] MEDS ORDERED: Dextrose 5% in Water 1,000 ML IV PRN (11:24)
[2017-09-09 11:51] LABS: #Basophils 0.1 thou/uL (0.0-0.2); #Eosinphils 0.4 thou/uL (0.0-0.7); #Lymphocytes 1.8 thou/uL (1.20-3.40); #Monocytes 0.7 thou/uL (0.11-0.59); #Neutrophils 4.4 thou/uL (1.40-6.50); %Eosinophils 5.5 % (0.0-10.0); %Lymphocytes 24.7 % (21.0-51.0); %Neutrophils 59.9 % (42.0-75.0); Hemoglobin 11.8 g/dL (14.0-18.0); Mean Corpuscular HGB CONC 32.8 g/dL (32.0-36.0); Mean Corpuscular Hemoglobin 32.4 pg (27.0-31.0); Mean Corpuscular Volume 98.9 fl (80.0-94.0); Mean Platelet Volume 9.6 fL (7.4-10.4); Platelet Count 162 thou/uL (130-400); RBC Distribution Width 13.9 % (11.5-14.5); Red Blood Cell (RBC) Count 3.64 mill/uL (4.70-6.10); White Blood Cell (WBC) Count 7.4 thou/uL (4.8-10.8)
[2017-09-09] MEDS ORDERED: Sodium Chloride 0.9% 10 ML ONE ×2 (11:54→16:36)
[2017-09-09 12:17] LABS: ALT (SGPT) 13 U/L (8-55); AST (SGOT) 16 U/L (5-34); Alkaline Phosphatase 71 U/L (40-150); Anion Gap 16 mmol/L (10-20); BUN (Urea Nitrogen) 123 mg/dL (8.4-25.7); Bilirubin, Total 0.6 mg/dL (0.2-1.2); Calc. Creatinine Clearance 11 mL/min (70-130); Calcium 9.5 mg/dL (7.8-10.44); Carbon Dioxide 25 mmol/L (23-31); Chloride 100 mmol/L (98-107); Estimated GFR-MDRD 11; Globulin 3.5 g/dL (2.4-3.5); Glucose 243 mg/dL (83-110); Potassium 4.6 mmol/L (3.5-5.1); Protein, Total 7.5 g/dL (5.8-8.1); Sodium 136 mmol/L (136-145)
[2017-09-09 13:00] LABS: HBSAB Concentration 0.08 mIU/mL; HBSAg Index 0.17 S/CO (0-0.99); HIV (1/2) Antibody/Antigen Non-Reactive (NonReactive); Hep B Core Total Ab Non-Reactive (NonReactive); Hep B Core Total Index 0.07 S/CO (0-0.79); Hep B Surf AB Non-Reactive (NonReactive); Hep B Surf Ag Non-Reactive S/CO (NonReactive); Hep C IgG Ab Non-Reactive (NonReactive); Hep C Index 0.29 S/CO (0-0.79)
--- NOTE | 2017-09-09 13:27 | HP ---
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 Patient is admitted b ecause the uremia to initiate dialysis. His potassium is normal. He is not dyspneic. His CO2 is 25 . Ultrasound vein mapping obtained revealed veins of right arm superior to the left for primary fist benoit. He has an IV in his right hand. Plan is for hemodialysis catheter placement later this afterno on as he had oat meal at 0700 today. We will plan placement of a right arm primary fistula tomorrow or Saturday. The patient understands the risks and benefits of the procedure and consents. He may need a central line to provide IV access and to preserve veins. ALLERGIES: PENICILLIN and SULFA. SOCIAL HISTORY: Tobacco cessation 25 years ago. Alcohol: Occasional beer or wine. MEDICATIONS: Levothyroxine 112 mcg a day, Nexium 20 mg a day, Lipitor 40 mg at bedtime, insulin 6 un its daily, aspirin 81 mg daily, allopurinol 100 mg b.i.d., NovoLog insulin 1-2 units subcutaneous at bedtime and 10 units subcutaneous as directed a.c., Lasix 80 mg a day, carvedilol 3.125 mg daily, NPH insulin 17 units subcu daily and 4 units subcu as directed and 5 units subcu at bedtime, and Lisinop ril 2.5 mg a day. PAST SURGICAL HISTORY: Coronary artery bypass grafting in [place] 20-25 years ago. He is fol lowed by Dr. Steve Cullen, Cardiology. He is up to date on his colonoscopies. PAST MEDICAL HISTORY: Diabetes mellitus, insulin-dependent, coronary artery disease; stable, hypothy roidism, Gout, and dyslipidemia. Patient had an appointment to see Dr. Steve Cullen this week for cardiac testing, although he is asymp tomatic. He had an echocardiogram on 07/13/2017, 35% to 40% ejection fraction, LV mildly increased, dilated left atrium, mild mitral valve prolapse, moderate to severe mitral regurgitation, mild aortic regurgitation, mild tricuspid regurgitation. PHYSICAL EXAMINATION: VITAL SIGNS: Height 5 feet 9 inches, weight 165 pounds, 24 BMI, 97.5, 71, 100%, respiratory rate 18, and 127/71. HEAD, EARS, EYES, NOSE, AND THROAT: Unremarkable. LUNGS: Clear to auscultation. CARDIAC: Regular rate and rhythm without murmur or gallop. ABDOMEN: Soft, nontender. EXTREMITIES: Unremarkable. LABORATORY DATA: Sodium 136, potassium 4.6, BUN 123, creatinine 4.99. White count 7, hemoglobin 11. 8. ASSESSMENT AND PLAN: 1. End-stage renal disease, need dialysis access. We will plan placement hemodialysis catheter to and placement of right arm primary fistula on Saturday in 48 hours. This will allow them to dialy ze him. Patient is right handed and we will place a right arm fistula. His veins are superior and m ore likely to have a primary fistula with a single operation and less likely need a staged procedure. 2. Coronary artery disease, stable. 3. Dyslipidemia. 4. Hypothyroidism. 5. Insulin-dependent diabetes mellitus.
[2017-09-09] MEDS ORDERED: Lidocaine 1% PF 5 ML VIAL ONE (15:11)
[2017-09-09] MEDS ORDERED: Ondansetron HCl/PF 4 MG/2 ML Vial ONE (15:11)
[2017-09-09] MEDS ORDERED: Propofol 200 MG/20 ML VIAL ONE (15:11)
[2017-09-09] MEDS ORDERED: PHENYLEPHRINE-NS 100 MCG/ML 10 ML SYRINGE ONE (15:11)
[2017-09-09] MEDS ORDERED: Levofloxacin 500 mg/D5W 100 ml Premix Bag ONE (15:47)
[2017-09-09] MEDS ORDERED: Heparin 10,000 UNITS/1 ML VIAL ONE (16:36)
[2017-09-09] MEDS ORDERED: Bupivacaine 0.25% HCL 30 ML VIAL ONE (16:36)
[2017-09-09] MEDS ORDERED: Midazolam HCl 2 mg/2 ml Vial ONE (16:38)
[2017-09-09] MEDS ORDERED: Fentanyl 100 MCG/2 ML VIAL ONE (16:38)
[2017-09-09] MEDS ORDERED: Propofol 500 MG/50 ML VIAL ONE (16:38)
[2017-09-09] MEDS ORDERED: Sodium Chloride 0.9% 0 ML ONE (16:42)
[2017-09-09] MEDS ORDERED: Lidocaine 2% w/Epinephrine 1:200K 20 ML VIAL ONE (16:42)
[2017-09-09] MEDS ORDERED: Promethazine HCl 25 MG/ML VIAL SLOW IVP PRN (16:51)
[2017-09-09] MEDS ORDERED: Morphine Sulfate 2 MG/ML SYRINGE SLOW IVP PRN (16:51)
[2017-09-09] MEDS: Heparin 5,000 UNITS/ML VIAL SC SCH ×2 (18:42→21:02)
[2017-09-09] MEDS: Tuberculin PPD 0.1 ML VIAL I-DERMAL SCH ×3 (18:43→21:22)
--- NOTE | 2017-09-09 19:31 | RAD ---
PORTABLE CHEST: History: Shortness of breath. Comparison: 07-12-17 FINDINGS: Large caliber central line is in adequate position overlying the SVC. The lungs are clear. Post op st ernotomy change. Heart size is within normal range. IMPRESSION: No acute finding. POS: H
[2017-09-09] MEDS ORDERED: Tuberculin PPD 0.1 ML VIAL I-DERMAL SCH (20:00)
--- NOTE | 2017-09-10 08:43 | OP ---
DATE OF PROCEDURE: 09/09/2017 PREOPERATIVE DIAGNOSES: End-stage renal disease, poor IV access, (IV lost during the procedure). POSTOPERATIVE DIAGNOSES: End-stage renal disease, poor IV access, (IV lost during the procedure). PROCEDURE: Right IJ cuffed tunnel hemodialysis catheter, angiodynamics precurved. Left IJ triple yan men catheter. Ultrasound and fluoroscopy used. SURGEON: Dr. Himanshu Mena ANESTHESIA: Intravenous sedation, local 0.5% Marcaine with epinephrine, 30 mL, mixed with 1% Xylocai ne with epinephrine, 30 mL. PROCEDURE: The patient was taken to the operating room where under intravenous sedation, neck and ch est were prepared with ChloraPrep, draped in routine fashion. Local anesthetic mixture infiltrated i nto skin and subcutaneous tissue about the operative sites. Ultrasound guidance used to cannulate th e right and left internal jugular veins and trocar catheter was introduced. Good return of venous bl ood obtained from each of the right and left internal jugular veins and J-wire was threaded. Trocar catheter removed. Skin incised and enlarged sharply. Stab incision made over the right chest. Usin g the tunneling device, the precurved angiodynamics cuffed tunnel hemodialysis catheter tunneled betw een the two incisions, placing the fabric cuff beneath the skin exit site and securing the catheter w ith 2 interrupted sutures of 3-0 nylon and Dermabond. Biopatch dressings applied. Using the smaller and medium sized dilators placed over the J-wire into the internal jugular vein on the right and rem antony. Dilator and pull-away sheath placed over the J-wire into the superior vena cava and dilator an d J-wire removed. Catheter placed with pull-away sheath and pull-away sheath removed. Platysma appr oximated with 4-0 Monocryl, skin with subdermal 4-0 Monocryl and DermaGlue applied. Each port aspira emily blood and flushed with saline solution and then heparinized saline solution 1000 units heparin pe r mL indicated volume on the port. Dermabond and sterile dressings applied. On the left side, Seldinger technique used to place a triple lumen catheter, removing the J-wire, sec uring the catheter with 3-0 nylon sutures. Biopatch and sterile dressing applied. Each port aspirat ed blood and flushed with saline solution. The patient tolerated the procedure well.
--- NOTE | 2017-09-10 08:59 | ULT ---
BILATERAL UPPER EXTREMITY VENOUS DUPLEX SONOGRAM: History: Renal failure. Dialysis access. FINDINGS: Good color and spectral doppler flow are present within each internal jugular and subclavian vein and each axillary and brachial vein. Measurements are as follows: VEIN MAPPING OF UPPER EXTREMITIES FOR DIALYSIS ACCESS: RIGHT UPPER EXTREMITY BRACHIAL ARTERY: 4 mm RADIAL ARTERY: 2 mm ULNAR ARTERY: 3 mm CEPHALIC VEIN Proximal Arm: 3 mm Mid Arm: 2 mm Distal Arm: 3 mm Antecubital Fossa: 3 mm Proximal Forearm: 3 mm Mid Forearm: 3 mm Distal Forearm: 2 mm BASILIC VEIN Proximal Arm: 4 mm Mid Arm: 4 mm Distal Arm: 4 mm Antecubital Fossa: 4 mm Proximal Forearm: 3 mm Mid Forearm: 4 mm Distal Forearm: 1 mm LEFT UPPER EXTREMITY BRACHIAL ARTERY: 4 mm RADIAL ARTERY: 2 mm ULNAR ARTERY: 2 mm CEPHALIC VEIN Proximal Arm: 2 mm Mid Arm: 2 mm Distal Arm: 1 mm Antecubital Fossa: 1 mm Proximal Forearm: 2 mm Mid Forearm: 2 mm Distal Forearm: 1 mm BASILIC VEIN Proximal Arm: 5 mm Mid Arm: 6 mm Distal Arm: 5 mm Antecubital Fossa: 3 mm Proximal Forearm: 2 mm Mid Forearm: 2 mm Distal Forearm: 2 mm IMPRESSION: Patent vascular structures within each upper extremity with measurements as detailed above. POS: [facility]
[2017-09-10] MEDS: Heparin 5,000 UNITS/ML VIAL SC SCH ×3 (09:37→20:13)
--- NOTE | 2017-09-10 11:48 | PDOC.PN ---
- Subjective Encounter Start Date: 09/10/17 Encounter Start Time: 11:47 CC: ESRD SUB: pt deneis dyspnea, tolerated hd this am - Objective Resuscitation Status: Resuscitation Status DNR:Do Not Resuscitate Vital Signs & Weight: Vital Signs (12 hours) Temp Pulse Resp BP Pulse Ox 09/10/17 08:02 97.7 F 88 18 105/54 L 99 09/10/17 08:00 97.7 F 88 18 99 09/10/17 03:20 97.6 F 84 16 114/56 L 100 Weight Admit Weight 165 lb 7 oz Weight 165 lb 7 oz I&O: 09/09/17 09/10/17 09/11/17 06:59 06:59 06:59 Intake Total 762 240 Output Total 600 Balance 162 240 Result Diagrams: 09/09/17 11:36 09/09/17 11:36 Additional Labs: Accuchecks 09/10/17 09/09/17 09/09/17 06:14 18:36 16:56 POC Glucose 195 H 156 H 164 H 09/09/17 12:10 POC Glucose 238 H Phys Exam - Physical Examination Constitutional: NAD HEENT: moist MMs Neck: no JVD Respiratory: no wheezing, no rales, no rhonchi no accessory muscle usage seen Cardiovascular: RRR, no significant murmur, no rub Gastrointestinal: soft, non-tender no guarding, no rebound tenderness Musculoskeletal: no edema Psychiatric: normal affect, A&O x 3 Dx/Plan - Plan * . Pt is 87 yrs old male now admitted to hospital due to dialysis needs. 1. ESRD: S/P [facility] placement Neph and surgery on board Tolerated hd this am Management per them. 2. H/O HTN: Monitor bp closley continue bp meds. 3. DM type 2: Monitor blood sugars closley continue NPH & ISS 4. H/O HPL: Continue statin 5. H/O CAD: Hold aspirin for now for AVF placement case d/w pt & RN
[2017-09-10] MEDS: HumaLOG 300 UNITS/3 ML VIAL SC PRN ×3 (12:34→20:20)
[2017-09-10] MEDS: Carvedilol 3.125 MG TAB PO SCH (15:33)
[2017-09-10] MEDS: Allopurinol 100 MG TAB PO SCH (20:18)
[2017-09-10] MEDS: Atorvastatin Calcium 40 MG TAB PO SCH (20:18)
[2017-09-10] MEDS: NPH, Human Insulin Isophane 300 UNIT/3 ML VIAL SC SCH (20:19)
[2017-09-11] MEDS: Carvedilol 3.125 MG TAB PO SCH ×2 (05:36→17:48)
--- NOTE | 2017-09-11 08:40 | PDOC.PN ---
- Subjective Encounter Start Date: 09/11/17 Encounter Start Time: 09:00 Subjective: Patient without complaint. Had dialysis yesterday without difficulty. -: Awaiting AV fistula placement today. No SOB. No pain. - Objective Resuscitation Status: Resuscitation Status DNR:Do Not Resuscitate MAR Reviewed: Yes Vital Signs & Weight: Vital Signs (12 hours) Temp Pulse Resp BP Pulse Ox 09/10/17 20:51 98.4 F 75 18 116/64 95 Weight Admit Weight 165 lb 7 oz Weight 165 lb 7 oz I&O: 09/10/17 09/11/17 09/12/17 06:59 06:59 06:59 Intake Total 762 960 Output Total 600 Balance 162 960 Result Diagrams: 09/09/17 11:36 09/09/17 11:36 Additional Labs: Accuchecks 09/11/17 09/10/17 09/10/17 04:45 19:30 15:49 POC Glucose 176 H 251 H 246 H 09/10/17 09/09/17 11:56 19:42 POC Glucose 365 H 157 H Phys Exam - Physical Examination Constitutional: NAD HEENT: moist MMs Respiratory: no wheezing, no rales, no rhonchi, clear to auscultation bilateral Cardiovascular: RRR, no significant murmur Gastrointestinal: soft, positive bowel sounds Musculoskeletal: no edema Neurological: non-focal, moves all 4 limbs Psychiatric: normal affect, A&O x 3 Dx/Plan (1) ESRD (end stage renal disease) on dialysis Code(s): N18.6 - END STAGE RENAL DISEASE; Z99.2 - DEPENDENCE ON RENAL DIALYSIS Status: Acute Comment: initiating dialysis (2) CAD (coronary artery disease) Code(s): I25.10 - ATHSCL HEART DISEASE OF [place] CORONARY ARTERY W/O ANG PCTRS Status: Chronic (3) DM2 (diabetes mellitus, type 2) Status: Chronic Qualifiers: Diabetes mellitus complication status: with kidney complications (4) Hyperlipidemia Code(s): E78.5 - HYPERLIPIDEMIA, UNSPECIFIED Status: Chronic (5) Hypertension Code(s): I10 - ESSENTIAL (PRIMARY) HYPERTENSION Status: Chronic - Plan cont current plan of care continue dialysis, AV fistula placement * . - Discharge Day Encounter end time: 09:30
[2017-09-11] MEDS: Heparin 5,000 UNITS/ML VIAL SC SCH ×3 (08:49→20:52)
[2017-09-11] MEDS ORDERED: NPH, Human Insulin Isophane 300 UNIT/3 ML VIAL SC SCH (09:00)
[2017-09-11] MEDS ORDERED: Non-Formulary Item 1 EACH (Esomeprazole Magnesium [Nexium] 20 MG) PO SCH (09:00)
[2017-09-11] MEDS: Allopurinol 100 MG TAB PO SCH ×2 (09:27→20:52)
[2017-09-11] MEDS: NPH, Human Insulin Isophane 300 UNIT/3 ML VIAL SC SCH ×2 (09:28→20:53)
[2017-09-11] MEDS: Levothyroxine Sodium 112 MCG TAB PO SCH (09:28)
[2017-09-11] MEDS: Furosemide 80 MG TAB PO SCH (09:28)
[2017-09-11] MEDS ORDERED: READ PPD TEST SITE PO SCH (13:00)
[2017-09-11] MEDS ORDERED: Midazolam HCl 2 mg/2 ml Vial ONE (13:24)
[2017-09-11] MEDS ORDERED: Fentanyl 100 MCG/2 ML VIAL ONE ×2 (13:24→15:05)
[2017-09-11] MEDS ORDERED: Levofloxacin 500 mg/D5W 100 ml Premix Bag ONE (14:09)
[2017-09-11] MEDS ORDERED: Bupivacaine HCl 0.5%/Epinephrine 1:200,000/PF 30 ml Vial ONE (14:39)
[2017-09-11] MEDS ORDERED: Lidocaine 2% w/Epinephrine 1:200K 20 ML VIAL ONE (15:02)
[2017-09-11] MEDS ORDERED: Bupivacaine PF 0.5% 30 ML VIAL ONE (15:02)
[2017-09-11] MEDS ORDERED: Heparin 5,000 UNITS/ML VIAL ONE (15:02)
[2017-09-11] MEDS ORDERED: Protamine Sulfate 50 MG/5 ML VIAL ONE (15:02)
[2017-09-11] MEDS ORDERED: Propofol 500 MG/50 ML VIAL ONE (15:17)
[2017-09-11] MEDS ORDERED: PHENYLEPHRINE-NS 100 MCG/ML 10 ML SYRINGE ONE (15:24)
[2017-09-11] MEDS ORDERED: Heparin 10,000 UNITS/ 10 ML VIAL ONE ×2 (15:24→16:04)
[2017-09-11] MEDS ORDERED: Propofol 200 MG/20 ML VIAL ONE (15:24)
[2017-09-11] MEDS ORDERED: Lidocaine 1% PF 5 ML VIAL ONE (15:24)
[2017-09-11] MEDS ORDERED: Ondansetron HCl/PF 4 MG/2 ML Vial IVP PRN ×2 (16:25→17:53)
[2017-09-11] MEDS ORDERED: Promethazine HCl 25 MG/ML VIAL IM PRN (16:25)
[2017-09-11] MEDS ORDERED: Meperidine HCl/PF 25 MG/ML VIAL SLOW IVP PRN (16:25)
[2017-09-11] MEDS ORDERED: Promethazine HCl 25 MG/ML VIAL SLOW IVP PRN (16:25)
[2017-09-11] MEDS ORDERED: Acetaminophen 500 MG TAB PO PRN (16:57)
[2017-09-11] MEDS ORDERED: traMADol HCl 50 MG TAB PO PRN ×2 (16:57)
[2017-09-11] MEDS ORDERED: Ondansetron ODT 4 MG TAB SL PRN (17:53)
[2017-09-11] MEDS: HumaLOG 300 UNITS/3 ML VIAL SC PRN (18:01)
[2017-09-11] MEDS: Atorvastatin Calcium 40 MG TAB PO SCH (20:52)
[2017-09-11] MEDS: READ PPD TEST SITE PO SCH (20:59)
--- NOTE | 2017-09-12 06:16 | OP ---
DATE OF PROCEDURE: 09/11/2017. PREOPERATIVE DIAGNOSIS: End-stage renal disease. POSTOPERATIVE DIAGNOSIS: End-stage renal disease. PROCEDURE: Right wrist Ayleen fistula, radial artery to cephalic vein, outflow cephalic vein calibra emily to 4-mm coronary dilator with ligation of collaterals to facilitate maturation. SURGEON: Himanshu Mena MD ANESTHESIA: Regional sedation. PROCEDURE IN DETAIL: The patient was taken to the operating room where under regional anesthesia, th e right upper extremity was prepared with ChloraPrep, draped in routine fashion. Incision was made be tween the radial artery and cephalic vein at the wrist, carried down through the skin and subcutaneou s tissue. Radial artery and cephalic vein were dissected free. Radial artery was of excellent calib er. It was proximally and distally with vascular clamps after 6000 units of heparin intravenou sly administered by Anesthesia and adequate circulation time achieved. Cephalic vein ligated on the hand side, dissected free, spatulated, and interrogated with coronary dilators from a 2-mm to a 4-mm coronary dilator, passed without restriction. It was flushed with heparinized saline solution. It w as spatulated accordingly, as was the radial artery for a 2 cm anastomosis created with continuous abernathy ture of 6-0 Prolene. Vascular clamps were released. Excellent flow in the fistula noted. Counter i ncision was made over the cephalic vein fistula and clips applied to small branches and wounds closed with 4-0 Monocryl. Sterile dressing was applied. Dermabond applied.
[2017-09-12] MEDS: HumaLOG 300 UNITS/3 ML VIAL SC PRN ×2 (06:23→16:50)
[2017-09-12] MEDS: Levothyroxine Sodium 112 MCG TAB PO SCH (08:39)
[2017-09-12] MEDS: Allopurinol 100 MG TAB PO SCH ×2 (08:39→20:42)
[2017-09-12] MEDS: Heparin 5,000 UNITS/ML VIAL SC SCH ×3 (08:39→20:42)
[2017-09-12] MEDS: Carvedilol 3.125 MG TAB PO SCH ×2 (08:39→16:50)
[2017-09-12] MEDS: Furosemide 80 MG TAB PO SCH (08:39)
[2017-09-12] MEDS: NPH, Human Insulin Isophane 300 UNIT/3 ML VIAL SC SCH (08:41)
[2017-09-12 11:28] LABS: Anion Gap 13 mmol/L (10-20); BUN (Urea Nitrogen) 42 mg/dL (8.4-25.7); Calc. Creatinine Clearance 23 mL/min (70-130); Calcium 8.9 mg/dL (7.8-10.44); Carbon Dioxide 28 mmol/L (23-31); Chloride 102 mmol/L (98-107); Estimated GFR-MDRD 25; Glucose 135 mg/dL (83-110); Potassium 4.2 mmol/L (3.5-5.1); Sodium 139 mmol/L (136-145)
--- NOTE | 2017-09-12 16:18 | PRG ---
DATE OF SERVICE: 09/12/2017 Mr. Garrison is doing well today. His right arm fistula has a good thrill and bruit. Surgical wou nd looks good. At this point, I will see him in the office in 3-4 weeks. He will exercise his right arm. He will see me sooner if there are any problems.
[2017-09-12] MEDS: Atorvastatin Calcium 40 MG TAB PO SCH (20:42)
[2017-09-12] MEDS ORDERED: NPH, Human Insulin Isophane 300 UNIT/3 ML VIAL SC SCH (21:00)
[2017-09-12] MEDS: READ PPD TEST SITE PO SCH (22:04)
[2017-09-13 07:24] VITALS: BP 91/51; TEMP 98.7
[2017-09-13] MEDS: Levothyroxine Sodium 112 MCG TAB PO SCH (07:53)
[2017-09-13] MEDS: Furosemide 80 MG TAB PO SCH (07:53)
[2017-09-13] MEDS: Allopurinol 100 MG TAB PO SCH (07:53)
[2017-09-13] MEDS: Carvedilol 3.125 MG TAB PO SCH (07:53)
[2017-09-13] MEDS: Heparin 5,000 UNITS/ML VIAL SC SCH ×2 (07:54→14:06)
[2017-09-13] MEDS: NPH, Human Insulin Isophane 300 UNIT/3 ML VIAL SC SCH ×2 (08:50→10:18)
--- NOTE | 2017-09-13 08:59 | PDOC.PN ---
- Subjective Encounter Start Date: 09/12/17 Encounter Start Time: 14:45 Patient is seen at HD, he is doing fine, was upset this morning about leaving him unattended. Otherwuise has no chest pain , c/o heaviness of his right upper arm due to nerve block. - Objective Resuscitation Status: Resuscitation Status DNR:Do Not Resuscitate MAR Reviewed: Yes Vital Signs & Weight: Vital Signs (12 hours) Temp Pulse Resp BP Pulse Ox 09/13/17 08:00 98.7 F 84 18 09/13/17 07:20 98.7 F 84 18 91/51 L 92 L Weight Admit Weight 165 lb 7 oz Weight 165 lb 7 oz I&O: 09/12/17 09/13/17 09/14/17 06:59 06:59 06:59 Intake Total 340 300 Output Total 750 50 Balance -410 250 Result Diagrams: 09/09/17 11:36 09/12/17 10:54 Additional Labs: Accuchecks 09/13/17 09/13/17 09/12/17 05:52 04:31 19:31 POC Glucose 158 H 61 L 255 H 09/12/17 09/12/17 16:48 12:13 POC Glucose 292 H 137 H Radiology Reviewed by me: Yes Phys Exam - Physical Examination HEENT: PERRLA, moist MMs Neck: no nodes, no JVD Respiratory: no wheezing, no rales Cardiovascular: RRR, no significant murmur Gastrointestinal: soft, non-tender Musculoskeletal: pulses present, edema present (right Upper extremity from AV acess Procedure) Dx/Plan (1) ESRD (end stage renal disease) on dialysis Code(s): N18.6 - END STAGE RENAL DISEASE; Z99.2 - DEPENDENCE ON RENAL DIALYSIS Status: Acute Comment: initiating dialysis, today HD. silvia. (2) Hyperlipidemia Code(s): E78.5 - HYPERLIPIDEMIA, UNSPECIFIED Status: Chronic Comment: Contoinue Home meds. (3) Hypertension Code(s): I10 - ESSENTIAL (PRIMARY) HYPERTENSION Status: Chronic Comment: Low Normal BP, at goal. will cotninue to monitor. (4) Acute combined systolic and diastolic congestive heart failure Code(s): I50.41 - ACUTE COMBINED SYSTOLIC AND DIASTOLIC (CONGESTIVE) HRT FAIL Status: Acute Comment: Improved with Removal of Excesive fluid with HD. (5) CKD (chronic kidney disease) Code(s): N18.9 - CHRONIC KIDNEY DISEASE, UNSPECIFIED Status: Acute Qualifiers: Chronic kidney disease stage: on chronic dialysis Qualified Code(s): N18.6 - End stage renal disease; Z99.2 - Dependence on renal dialysis; Z99.2 - Dependence on renal dialysis; Z99.2 - Dependence on renal dialysis; Z99.2 - Dependence on renal dialysis Comment: Pt had right AV scess during this admission. (6) Hyperkalemia Code(s): E87.5 - HYPERKALEMIA Status: Acute Comment: Resolved with HD (7) NSTEMI (non-ST elevated myocardial infarction) Code(s): I21.4 - NON-ST ELEVATION (NSTEMI) MYOCARDIAL INFARCTION Status: Acute Comment: likley demand ischemia (8) CAD (coronary artery disease) Code(s): I25.10 - ATHSCL HEART DISEASE OF [place] CORONARY ARTERY W/O ANG PCTRS Status: Chronic - Plan cont current plan of care, PT/OT, perinatal social worker, incentive spirometry, out of bed/ambulate, DVT proph w/lovenox * . - Discharge Day Encounter end time: 15:15 Review of Systems - Review of Systems Constitutional: weakness Eyes: negative: Pain, Vision Change, Conjunctivae Inflammation, Eyelid Inflammation, Redness, Other ENT: negative: Ear Pain, Ear Discharge, Nose Pain, Nose Discharge, Nose Congestion, Mouth Pain, Mouth Swelling, Throat Pain, Throat Swelling, Other Respiratory: negative: Cough, Dry, Shortness of Breath, Hemoptysis, SOB with Excertion, Pleuritic Pain, Sputum, Wheezing Cardiovascular: negative: chest pain, palpitations, orthopnea, paroxysmal nocturnal dyspnea, edema, light headedness, other Gastrointestinal: negative: Nausea, Vomiting, Abdominal Pain, Diarrhea, Constipation, Melena, Hematochezia, Other Musculoskeletal: Other (haviness of Right arm following never block) - Medications/Allergies Allergies/Adverse Reactions: Allergies Allergy/AdvReac Type Severity Reaction Status Date / Time amoxicillin Allergy Verified 09/09/17 11:26 Sulfa (Sulfonamide Allergy Verified 09/09/17 11:26 Antibiotics) Medications: Current Medications Acetaminophen (Tylenol) 1,000 mg PO Q6H PRN PRN Reason: Moderate to Severe Pain (6-10) Allopurinol (Zyloprim) 100 mg PO BID [facility] Last Admin: 09/13/17 07:53 Dose: 100 mg Atorvastatin Calcium (Lipitor) 40 mg PO [facility] Last Admin: 09/12/17 20:42 Dose: 40 mg Carvedilol (Coreg) 3.125 mg PO BID-[facility] Last Admin: 09/13/17 07:53 Dose: Not Given Dextrose/Water (Dextrose 50%) 25 gm SLOW IVP PRN PRN PRN Reason: Hypoglycemia Furosemide (Lasix) 80 mg PO DAILY [facility] Last Admin: 09/13/17 07:53 Dose: Not Given Glucagon (Glucagon) 1 mg IM PRN PRN PRN Reason: Hypoglycemia Heparin Sodium (Porcine) (Heparin) 5,000 units SC TID [facility] Last Admin: 09/13/17 07:54 Dose: 5,000 units Dextrose/Water (D5w) 1,000 mls @ 0 mls/hr IV .Q0M PRN; As Directed PRN Reason: Hypoglycemia Insulin Human Lispro (Humalog) 0 units SC .MODERATE SLIDING SC PRN PRN Reason: Moderate Correctional Scale Last Admin: 09/12/17 16:50 Dose: 6 unit Insulin Human NPH (Humulin N) 17 unit SC DAILY [facility] Last Admin: 09/13/17 08:50 Dose: Not Given Insulin Human NPH (Humulin N) 15 unit SC [facility] Last Admin: 09/12/17 20:45 Dose: 15 unit Levothyroxine Sodium (Synthroid) 112 mcg PO DAILY [facility] Last Admin: 09/13/17 07:53 Dose: 112 mcg Ondansetron HCl (Zofran) 4 mg IVP Q6H PRN PRN Reason: Nausea/Vomiting Last Admin: 09/12/17 12:46 Dose: 4 mg Ondansetron HCl (Zofran Odt) 4 mg SL Q6H PRN PRN Reason: Nausea/Vomiting Pantoprazole Sodium (Protonix) 40 mg PO DAILY [facility] Last Admin: 09/13/17 07:53 Dose: 40 mg Sodium Chloride (Flush - Normal Saline) 10 ml IVF Q12HR [facility] Last Admin: 09/13/17 07:53 Dose: 10 ml Sodium Chloride (Flush - Normal Saline) 10 ml IVF PRN PRN PRN Reason: Saline Flush Last Admin: 02/08/18 12:46 Dose: 10 ml Tramadol HCl (Ultram) 50 mg PO Q6H PRN PRN Reason: Pain Tramadol HCl (Ultram) 100 mg PO Q6H PRN PRN Reason: Pain
[2017-09-13] MEDS: HumaLOG 300 UNITS/3 ML VIAL SC PRN (11:50)
--- NOTE | 2017-09-13 13:57 | DIS ---
DATE OF ADMISSION: 09/09/2017 DATE OF DISCHARGE: 09/13/2017 ADMITTING DIAGNOSIS: End-stage renal disease, volume overload state. DISCHARGE DIAGNOSIS: End-stage renal disease, volume overload state with hemodialysis. SECONDARY DIAGNOSES: 1. Type 2 diabetes mellitus. 2. Coronary artery disease. 3. Dyslipidemia. 4. Hypothyroidism. CONSULTANTS: Involved in the care is Dr. Himanshu Mena for Vascular Surgery. PROCEDURES DONE: During this admission are right wrist Ayleen fistula, radial artery to cephalic vei n. HISTORY OF PRESENT ILLNESS AND HOSPITAL COURSE: In brief, this is an 87-year-old white male living a t assisted living and longterm home along with his , the patient is a known patient to Dr. Thom Aparicio for his chronic kidney disease secondary to diabetic nephropathy. The patient was admitte d because of the uremia and to initiate dialysis. The patient was dyspneic with elevated CO2 of 25 a nd ultrasound vein mapping. Dr. Himanshu Mena was consulted and did an ultrasound vein mapping reve aling veins of the right arm superior to the left for primary fistula. So dialysis was started with the Bradley catheter initially and the procedure was planned for a right fistula placement. The patient tolerated dialysis well and his fluid status was controlled. The patient was less dyspne ic. Patient also has AV access procedure done by Dr. Himanshu Mena. The patient tolerated the proc edure very well. He denied having any chest pain or any shortness of breath on the day of discharge and patient was discharged back to longterm home. The patient would follow up with Dr. Himanshu escobedo for his hemodialysis as scheduled. This has been already arranged by case management. PHYSICAL EXAMINATION: On date of discharge: VITAL SIGNS: Blood pressures are 91/51, heart rate is 92, respiration is 18, saturation 98%. GENERAL: The patient is moderately built and moderately nourished. He does not appear to be in acut e distress at this time. Alert, oriented x3. HEENT: Atraumatic, normocephalic. PERRLA. Extraocular muscles were intact. Oral mucosa is pink an d moist. CARDIOVASCULAR: S1, S2 normal. No murmurs, rubs or gallops. LUNGS: Bilateral air entry was equal. No wheezing, no crackles. ABDOMEN: Soft and nontender. No guarding or rebound tenderness. Bowel sounds were normal. HOME MEDICATIONS: 1. Insulin sliding scale. 2. Aspirin 81 mg daily. 3. NPH insulin. The patient takes 17 units at bedtime. 4. Allopurinol 100 mg p.o. b.i.d. 5. Atorvastatin 40 mg p.o. daily. 6. Coreg 3.125 mg p.o. b.i.d. 7. Lisinopril 20 mg p.o. daily. 8. Levothyroxine 112 mcg p.o. daily. We will hold lisinopril 2.5 mg because of low blood pressures and also hold the Lasix 80 mg as the mary alice farias is on scheduled hemodialysis. DISCHARGE INSTRUCTIONS: 1. Continue activity as tolerated. Advised to follow up with Nephrology as scheduled for hemodialys is. Follow up with Dr. Himanshu Mena as needed regarding the vascular access. 2. Continue with renal diet. I spent 30 minutes with this patient at discharge.
== END 2017-09-13 15:29 | disposition home or self-care (01) | DRG 264 ==
LOC: 2NO 10:26 → T4-A 09-10 13:34
PROVIDERS: ADMIT Internal Medicine; ATTEND Internal Medicine
PROC: 02HV33Z Insertion of Infusion Device into Superior Vena Cava, Percutaneous Approach (ICD-10-PCS; 2017-09-09)
PROC: B518YZA Fluoroscopy of Superior Vena Cava using Other Contrast, Guidance (ICD-10-PCS; 2017-09-09)
PROC: 5A1D70Z Performance of Urinary Filtration, Intermittent, Less than 6 Hours Per Day (ICD-10-PCS; 2017-09-10)
PROC: 031B0ZF Bypass Right Radial Artery to Lower Arm Vein, Open Approach (ICD-10-PCS; principal; 2017-09-11)
PROC: 5A1D70Z Performance of Urinary Filtration, Intermittent, Less than 6 Hours Per Day (ICD-10-PCS; 2017-09-12)
DX: I13.2 Hypertensive heart and chronic kidney disease with heart failure and with stage 5 chronic kidney disease, or end stage renal disease (principal); I21.A1 Myocardial infarction type 2; E11.21 Type 2 diabetes mellitus with diabetic nephropathy; I50.41 Acute combined systolic (congestive) and diastolic (congestive) heart failure; N18.6 End stage renal disease; Z66 Do not resuscitate; E87.5 Hyperkalemia; E78.5 Hyperlipidemia, unspecified; I25.10 Atherosclerotic heart disease of native coronary artery without angina pectoris; E11.22 Type 2 diabetes mellitus with diabetic chronic kidney disease; Z99.2 Dependence on renal dialysis; Z87.891 Personal history of nicotine dependence; Z95.1 Presence of aortocoronary bypass graft; Z79.4 Long term (current) use of insulin; E03.9 Hypothyroidism, unspecified; E87.70 Fluid overload, unspecified; Z86.73 Personal history of transient ischemic attack (TIA), and cerebral infarction without residual deficits; D63.1 Anemia in chronic kidney disease; E11.319 Type 2 diabetes mellitus with unspecified diabetic retinopathy without macular edema; E11.40 Type 2 diabetes mellitus with diabetic neuropathy, unspecified; K21.9 Gastro-esophageal reflux disease without esophagitis; M10.9 Gout, unspecified
CPT/HCPCS: 36415; 36416; 71045; 80048; 80053; 85025; 86580; 86704; 86706; 86803; 87340; 87389; 90935; 93970; A4216; C1752; C1769; G0257; G0365; J0670; J1642; J1644; J1815; J1956; J2001; J2250; J2405; J2704; J2720; J3010; S0020

== ENCOUNTER 2017-11-01 23:00 | Inpatient (IN) | payer MEDICARE ==
[2017-11-01 23:39] LABS: Hemoglobin 11.7 g/dL (14.0-18.0); Mean Corpuscular HGB CONC 33.1 g/dL (32.0-36.0); Mean Corpuscular Hemoglobin 32.9 pg (27.0-31.0); Mean Corpuscular Volume 99.2 fl (80.0-94.0); Mean Platelet Volume 9.5 fL (7.4-10.4); Platelet Count 225 thou/uL (130-400); RBC Distribution Width 16.2 % (11.5-14.5); Red Blood Cell (RBC) Count 3.55 mill/uL (4.70-6.10); White Blood Cell (WBC) Count 9.3 thou/uL (4.8-10.8)
--- NOTE | 2017-11-01 23:51 | RAD ---
PA AND LATERAL OF THE CHEST 11/01/17 INDICATION: Shortness of breath intermittent for the last two months. COMPARISON: Prior exam dated 09/09/17. FINDINGS: There is a lenticular density seen within the region of the left major fissure suspicious for a locul ated pleural effusion. There are tiny bilateral pleural effusions. There is moderate cardiomegaly wit h mild pulmonary vascular congestion. There is a right IJ dialysis catheter unchanged in position. Po st CABG change is similar. No acute osseous abnormality is evident. IMPRESSION: 1. Cardiomegaly with pulmonary vascular congestion and small bilateral pleural effusions suggest volume overload or CHF. 2. There is lenticular density now present within the region of the left major fissure suspiciou s for pleural fluid trapped within the left major fissure. POS: [facility]
[2017-11-01 23:52] LABS: ALT (SGPT) 156 U/L (8-55); AST (SGOT) 202 U/L (5-34); Albumin 3.6 g/dL (3.4-4.8); Alkaline Phosphatase 287 U/L (40-150); Anion Gap 22 mmol/L (10-20); BUN (Urea Nitrogen) 44 mg/dL (8.4-25.7); Bilirubin, Total 1.2 mg/dL (0.2-1.2); CK (CPK) 98 U/L (30-200); Calc. Creatinine Clearance 0 mL/min (70-130); Calcium 8.7 mg/dL (7.8-10.44); Carbon Dioxide 21 mmol/L (23-31); Chloride 94 mmol/L (98-107); Estimated GFR-MDRD 8; Globulin 3.1 g/dL (2.4-3.5); Glucose 202 mg/dL (83-110); Lipase 24 U/L (8-78); Magnesium 2.3 mg/dL (1.6-2.6); Potassium 5.3 mmol/L (3.5-5.1); Protein, Total 6.7 g/dL (5.8-8.1); Sodium 132 mmol/L (136-145)
[2017-11-01 23:55] LABS: CKMB 2.8 ng/mL (0-6.6); Troponin I 0.202 ng/mL (< 0.028)
[2017-11-02 00:04] LABS: Acanthocytes SLIGHT = 1-5 cells (100X) (None Seen); Burr Cells SLIGHT = 2-5 cells (100X) (0-1/hpf); Eosinophils 1 % (0-10); Lymphocytes 24 % (21-51); MDiff Complete? YES; Monocytes 8 % (0-10); Neutrophil 66 % (42-75); PLT Morphology Comment Appears Adequate; Reactive Lymphocytes 1 % (0-10)
[2017-11-02 00:40] LABS: Bilirubin Small (Negative); Blood, Urine Negative (Negative); Glucose, Urine (Dipstick) Negative (Negative); Leukocyte Trace (Negative); Nitrite Negative (Negative); Protein, Urine (Dipstick) 100 mg/dL (Neg-Trace)
[2017-11-02 00:42] LABS: Clarity Hazy (Clear); Specific Gravity, Urine 1.024 (1.002-1.036)
[2017-11-02 00:43] LABS: Bacteria/HPF Rare-Few HPF (None Seen); Crystals/HPF 1+ AMORPH URATES HPF (Negative); Hyaline Casts/LPF 7-10 HYALINE CAST LPF (0-3 Hyaline); Other Microscopic Description Less than 2 mL rec'd; RBC/HPF 0-3 HPF (0-3); Renal Epithelial 0-3 HPF (0-3); Squamous Epithelial 0-3 HPF (0-3); WBC/HPF 0-3 HPF (0-3)
[2017-11-02] MEDS ORDERED: Heparin 5,000 UNITS/ML VIAL ONE (02:21)
[2017-11-02 02:56] LABS: Troponin I 0.206 ng/mL (< 0.028)
[2017-11-02] MEDS ORDERED: Heparin 25,000 units/D5W 500 ML IV SCH (03:00)
[2017-11-02] MEDS ORDERED: Heparin 10,000 UNITS/ 10 ML VIAL SLOW IVP SCH (03:00)
[2017-11-02 03:04] LABS: INR-International Normal Ratio 1.3; PTT 33.3 SEC (22.9-36.1); Prothrombin Time 16.7 SEC (12.0-14.7)
[2017-11-02] MEDS ORDERED: Ondansetron ODT 4 MG TAB SL PRN (05:03)
[2017-11-02] MEDS ORDERED: Acetaminophen 325 MG TAB PO PRN (05:03)
[2017-11-02] MEDS ORDERED: Ondansetron HCl/PF 4 MG/2 ML Vial IVP PRN ×2 (05:03→06:03)
[2017-11-02] MEDS ORDERED: cloNIDine 0.1 MG TAB PO PRN (06:03)
[2017-11-02] MEDS ORDERED: Benzonatate 100 MG CAP PO PRN (06:03)
[2017-11-02] MEDS ORDERED: Dextrose 50% Abboject 50 ML SYRINGE SLOW IVP PRN (06:03)
[2017-11-02] MEDS ORDERED: Acetaminophen 500 MG TAB PO PRN (06:03)
[2017-11-02] MEDS ORDERED: hydrALAZINE 20 MG/ML VIAL SLOW IVP PRN (06:03)
[2017-11-02] MEDS ORDERED: Ondansetron ODT 4 MG TAB PO PRN (06:03)
[2017-11-02] MEDS ORDERED: Dextrose 5% in Water 1,000 ML IV PRN (06:03)
[2017-11-02 06:15] LABS: Troponin I 0.207 ng/mL (< 0.028)
[2017-11-02] MEDS ORDERED: Levothyroxine Sodium 112 MCG TAB PO SCH (06:30)
[2017-11-02 06:52] LABS: Acanthocytes SLIGHT = 1-5 cells (100X) (None Seen); Burr Cells SLIGHT = 2-5 cells (100X) (0-1/hpf); Eosinophils 1 % (0-10); Hemoglobin 11.1 g/dL (14.0-18.0); Lymphocytes 7 % (21-51); MDiff Complete? YES; Mean Corpuscular HGB CONC 33.1 g/dL (32.0-36.0); Mean Corpuscular Volume 99.7 fl (80.0-94.0); Mean Platelet Volume 9.7 fL (7.4-10.4); Monocytes 10 % (0-10); Neutrophil 82 % (42-75); Platelet Count 202 thou/uL (130-400); RBC Distribution Width 16.4 % (11.5-14.5); Red Blood Cell (RBC) Count 3.38 mill/uL (4.70-6.10); White Blood Cell (WBC) Count 9.7 thou/uL (4.8-10.8)
--- NOTE | 2017-11-02 07:15 | HP ---
DATE OF ADMISSION: 11/02/2017 PRIMARY CARE PROVIDER: Dr. Bucky Infante. PRIMARY OFFICE CLIN ASST: Dr. Himanshu Aparicio. CHIEF COMPLAINT: Shortness of breath. HISTORY OF PRESENT ILLNESS: This is an 87-year-old male who presents to [facility] from [facility] where patient is a current resident. The patient has noted intermittent shortness of breath over the last 4-8 weeks, increased in the last 24 hours with associated chest pressure lasting 15-20 seconds, then resolving some spontaneously. The patient's hi story is significant for end-stage renal disease with current hemodialysis on Tuesdays, , an d Saturdays and the patient states he has been compliant with this regimen. The patient denies any o bvious swelling of the ankles, legs and denies any specific fever or chills. The patient denies taki ng any specific home medication remedies or change to his chronic medication regimen. The patient un derwent general evaluation including plain radiographs of the chest showing cardiomegaly and pulmonar y vascular prominence with small bilateral pleural effusions suggestive of volume overload. The mira ent received aspirin 324 mg x1 dose in addition to being placed on a heparin infusion after metabolic screening showed evidence of elevated troponin I and BNP over 14,000. The patient currently denies any specific shortness of breath. The patient was noted with elevated D-dimer of 8.69, undergoing CT angiogram of the chest showing no evidence for pulmonary embolus. The patient, however, was placed upon heparin infusion after concern for elevated troponin I and patient's description of his symptoms . The patient denies missing any hemodialysis sessions and has been compliant with his chronic medic ation regimen. Current plans are for hemodialysis in the a.m. PAST MEDICAL HISTORY: 1. End-stage renal disease with current hemodialysis Saturday, , and Saturday. 2. Diabetes mellitus type 2, insulin requiring, with nephropathy. 3. Status post AV fistula placement. 4. Hypothyroidism. 5. Gastroesophageal reflux disease. 6. Hyperlipidemia. 7. Coronary artery disease. 8. History of gout. PAST SURGICAL HISTORY: 1. Status post coronary artery bypass grafting. 2. Status post colonoscopies. 3. Status post AV fistula placement. CURRENT MEDICATIONS: 1. Allopurinol 100 mg 1 tab p.o. daily. 2. Enteric coated aspirin 81 mg 1 tab p.o. daily. 3. Lipitor 40 mg p.o. at bedtime. 4. Coreg 3.125 mg p.o. b.i.d. 5. Nexium 20 mg p.o. daily. 6. Humulin N 17 units subcutaneously daily and 5 units subcutaneously at bedtime. 7. Levothyroxine 112 mcg p.o. daily. ALLERGIES: AMOXICILLIN and SULFA. FAMILY HISTORY: Positive for diabetes mellitus and hypertension. SOCIAL HISTORY: Remote history of tobacco use 25 years prior to this evaluation. Occasional alcohol 2-3 times per week. No illicit drug use. Resides at [facility]. REVIEW OF SYSTEMS: The following complete review of systems was negative, unless otherwise mentioned in the HPI or below: Constitutional: Weight loss or gain, ability to conduct usual activities. Skin: Rash, itching. Eyes: Double vision, pain. ENT/Mouth: Nose bleeding, neck stiffness, pain, tenderness. Cardiovascular: Palpitations, dyspnea on exertion, orthopnea. Respiratory: Shortness of breath, wheezing, cough, hemoptysis, fever or night sweats. Gastrointestinal: Poor appetite, abdominal pain, heartburn, nausea, vomiting, constipation, or diarr hea. Genitourinary: Urgency, frequency, dysuria, nocturia. Musculoskeletal: Pain, swelling. Neurologic/Psychiatric: Anxiety, depression. Allergy/Immunologic: Skin rash, bleeding tendency. PHYSICAL EXAMINATION: VITAL SIGNS: Currently, blood pressure 103/52, pulse 58, respiratory rate 22, temperature 97.9 degre es Fahrenheit, O2 saturation 97% on room air. GENERAL APPEARANCE: This is an 87-year-old male, alert and oriented x3, pleasant, conversa nt, in no acute distress. HEENT: Pupils are equal, round, and reactive to light and accommodation. Extraocular muscles are in tact. No scleral icterus, no conjunctival injection. Nares patent. OP is clear. Teeth in fair rep air. NECK: Supple, no cervical adenopathy, no thyromegaly, no carotid bruits, no JVD appreciated. Cervic al spine with full active and passive range of motion. No meningeal signs appreciated. CHEST: Diminished breath sounds in the bases, right greater than left. CARDIOVASCULAR: S1, S2, without noted murmur. ABDOMEN: Rounded, soft, nontender, nondistended. Bowel sounds are positive in all four quadrants. There is no hepatosplenomegaly, no abdominal bruits, no rebound or guarding appreciated. EXTREMITIES: Warm and dry with fair turgor. No clubbing, cyanosis or asymmetric edema appreciated. Pulses palpable distally at the dorsalis pedis, posterior tibial, and popliteal arteries bilaterally . Capillary refill less than 2 seconds. NEUROLOGIC: Cranial nerves II through XII are grossly intact. No focal or lateralizing signs apprec iated. PERTINENT LABORATORY DATA AND X-RAY FINDINGS: Sodium 132, potassium 5.3, chloride 94, CO2 of 21, BUN 44, creatinine 6.97, estimated GFR of 8, glucose 202, calcium 8.7, magnesium 2.3, AST 202, ALT 156, alkaline phosphatase 287, troponin I ranged between 0.202-0.206. BNP 41532, previously noted 2083 on 07/12/2017. Lipase 24. CBC showed a white blood cell count of 9.3, hemoglobin 11.7, hematocrit 35. 2, MCV 99.2, platelet count 225 with normal differential. PT 16.7, INR 1.3, PTT 33.3. D-dimer 8.69. Portable chest x-ray dated 11/01/2017 showed cardiomegaly with pulmonary vascular congestion and sm all bilateral pleural effusions suggestive of volume overload. CT angiogram of the chest dated 11/02 showed no evidence for pulmonary embolus. Moderate right pleural effusion and small left pleur al effusion noted. Positive for pulmonary edema. EKG dated 11/01/2017 by my interpretation shows si nus mechanism with heart rates in the 60s. Attenuated R waves noted in the precordial leads. Left a xis deviation noted. Left bundle branch block pattern noted. ASSESSMENT AND PLAN: 1. Acute dyspnea. The patient will be admitted to the telemetry unit. Appears dyspnea related to v olume overload and pulmonary edema in the context of end-stage renal disease. We will proceed with h emodialysis after consultation with Nephrology service. Oxygen supplementation as needed to maintain O2 saturations greater than or equal to 90%. 2. Acute volume overload in the context of end-stage renal disease with hemodialysis. See #1 above. We will continue hemodialysis during the hospital course after consultation with Nephrology service . Last 2D transthoracic echocardiogram on 07/13/2017 showed ejection fraction of 35%-40% with grade 2/3 diastolic dysfunction. 3. Hyperkalemia. Mild. Suspect secondarily to end-stage renal disease. We will proceed with hemod ialysis per Nephrology recommendations. 4. Transaminitis. Suspect secondarily to acute on chronic volume overload. We will continue to laya nd LFTs. Check right upper quadrant ultrasound to rule out obstructive process. 5. Elevated troponin I. Suspect demand ischemia and chronic in nature given the patient's end-stage renal disease. 6. Chronic macrocytic anemia. Suspect secondary to chronic kidney disease. Repeat CBC in the a.m. 7. Diabetes mellitus type 2, insulin requiring. Insulin sliding scale for reflexive coverage. Accu -Cheks before meals and at bedtime. ADA diet. 8. Prophylaxis. Sequential compression devices while in bed. Pepcid 20 mg p.o. b.i.d. 9. Code status is full. Surrogate medical decision maker is the patient's spouse.
[2017-11-02 07:40] LABS: Albumin 3.4 g/dL (3.4-4.8)
[2017-11-02 07:41] LABS: Chloride 94 mmol/L (98-107); Potassium 5.2 mmol/L (3.5-5.1); Sodium 132 mmol/L (136-145)
[2017-11-02 07:42] LABS: Calcium 8.6 mg/dL (7.8-10.44)
[2017-11-02 07:43] LABS: Globulin 2.9 g/dL (2.4-3.5); Glucose 192 mg/dL (83-110); Protein, Total 6.3 g/dL (5.8-8.1)
[2017-11-02 07:44] LABS: Anion Gap 22 mmol/L (10-20); Carbon Dioxide 21 mmol/L (23-31)
[2017-11-02 07:45] LABS: Bilirubin, Total 1.1 mg/dL (0.2-1.2)
[2017-11-02 07:46] LABS: Alkaline Phosphatase 271 U/L (40-150); Calc. Creatinine Clearance 8 mL/min (70-130); Estimated GFR-MDRD 7
--- NOTE | 2017-11-02 07:46 | CT ---
PRELIMINARY REPORT/[facility]/EMERGENCY AFTER HOURS PROCEDURE: EXAM: CT Angiography Chest With Intravenous Contrast EXAM DATE/TIME: Exam ordered 11/02/2017 1:27 AM CLINICAL HISTORY: 87 years old, male; Signs and symptoms; Shortness of breath; Patient HX: Er 12; No previous; M85 pres ents w/ intermittent SOB x2 months. Pt reports SOB exacerbated tonight with chest pressure that laste d about 15-20 seconds. Pt reports all symptoms resolved right now. Pt reports kidney failure from bijal betes and HX of chf TECHNIQUE: Axial computed tomographic angiography images of the chest with intravenous contrast using pulmonary embolism protocol. MIP reconstructed images were created and reviewed. CONTRAST: 73 mL of ISOVUE 370 administered intravenously. COMPARISON: No relevant prior studies available. FINDINGS: Pulmonary arteries: Evaluation of the distal subsegmental pulmonary arteries is limited. Otherwise,th ere is no evidence of PE. Aorta: No acute findings. No thoracic aortic aneurysm. Lungs: Minimal multifocal smooth interlobular septal thickening suggests mild hydrostatic interstitia l pulmonary edema/CHF. Lungs otherwise clear allowing for expiratory phase imaging and respiratory motion. No mass. Pleural space: Moderate right pleural effusion. Small left pleural effusion. No pneumothorax. Heart: Cardiomegaly. No significant pericardial effusion. No evidence of RV dysfunction. Mediastinum: Esophagus is unremarkable. Bones/joints: No acute fracture. No dislocation. Soft tissues: Unremarkable. Lymph nodes: Unremarkable. No enlarged lymph nodes. Gallbladder and bile ducts: Gallbladder is incompletely visualized. There is possible gallbladder wal l thickening/pericholecystic inflammation; however, this may be due to motion. Intraperitoneal space: Incompletely visualized perisplenic ascites. IMPRESSION: 1. Moderate right pleural effusion. Small left pleural effusion. 2. Minimal multifocal smooth interlobular septal thickening suggests mild hydrostatic interstitial pu lmonary edema/CHF. 3. Gallbladder is incompletely visualized. There is possible gallbladder wall thickening/pericholecys tic inflammation; however, this may be due to motion. As such, acute cholecystitis is not excluded. I f there are symptoms referable to the right upper quadrant, consider ultrasound or abdomen/pelvis CT wi th intravenous contrast. 4. Incompletely visualized perisplenic ascites. Thank you for allowing us to participate in the care of your patient. Dictated and Authenticated by: Armond Garrison MD 11/02/2017 1:58 AM Central Time ([place] & [place]) FINAL REPORT CTA CHEST WITH CONTRAST: HISTORY: Evaluate for pulmonary embolism. History of shortness of breath. COMPARISON: Chest radiograph prior day. TECHNIQUE: CT angiogram chest performed after the intravenous administration of contrast. Three-D rendering pro vided. Findings and impression are concordant with the preliminary report. No pulmonary embolism. POS: [facility]
[2017-11-02 07:47] LABS: BUN (Urea Nitrogen) 48 mg/dL (8.4-25.7)
[2017-11-02 07:48] LABS: AST (SGOT) 262 U/L (5-34)
[2017-11-02 07:49] LABS: ALT (SGPT) 186 U/L (8-55)
[2017-11-02] MEDS ORDERED: ISOVUE-370 76%-LOCM 1 ML ONE (07:49)
[2017-11-02] MEDS ORDERED: Carvedilol 3.125 MG TAB PO SCH (08:00)
[2017-11-02] MEDS ORDERED: Aspirin 325 MG TAB PO SCH (09:00)
[2017-11-02] MEDS ORDERED: Famotidine 20 MG TAB PO SCH ×2 (09:00→21:00)
--- NOTE | 2017-11-02 09:31 | ULT ---
ULTRASOUND GALLBLADDER RIGHT UPPER QUADRANT: HISTORY: Elevated LFTs. COMPARISON: None. FINDINGS: Pancreas is unremarkable. There is sludge within the gallbladder. Gallbladder is not dilated. The gallbladder wall thickness is measuring 6 mm. The sonographic Vázquez's sign is negative. Common avani e duct measures up to 6 mm. Portal vein is patent with antegrade flow. Right pleural effusion is present. Hepatic echotexture was normal measuring 12.6 cm in length. The right kidney measures 8.3 x 4.4 x 4 cm. IMPRESSION: Thickened gallbladder wall without gallbladder distention or stones likely congestive in nature from diastolic dysfunction. Negative sonographic Vázquez's sign. POS: [facility]
--- NOTE | 2017-11-02 11:07 | PDOC.PN ---
- Subjective Encounter Start Date: 11/02/17 Encounter Start Time: 11:05 Subjective: nsg notes rev, pt seen as leelee hernandez called for symptomatic bradycardia and -: decreased mental status with increased SOB at the same time. at the time of -: my arrival, pt is improving and able to recount his hx, states this is exactly what brought him in in terms of symptoms - Objective Resuscitation Status: Resuscitation Status FULL:Full Resuscitation Vital Signs & Weight: Vital Signs (12 hours) Temp Pulse Resp BP Pulse Ox 11/02/17 08:06 97.3 F L 61 18 105/51 L 95 11/02/17 08:00 97.3 F L 61 18 11/02/17 04:12 97.9 F 58 L 22 H 102/52 L 97 Weight Weight 166 lb 14.239 oz I&O: 11/01/17 11/02/17 11/03/17 06:59 06:59 06:59 Intake Total 39.4 Balance 39.4 Result Diagrams: 11/02/17 02:24 11/02/17 05:24 Additional Labs: Accuchecks 11/02/17 11/02/17 10:48 06:30 POC Glucose 275 H 179 H Phys Exam - Physical Examination Constitutional: NAD HEENT: PERRLA, moist MMs, sclera anicteric Respiratory: no wheezing, no rales, no rhonchi, clear to auscultation bilateral Cardiovascular: RRR, no significant murmur, no rub Gastrointestinal: soft, non-tender, positive bowel sounds Musculoskeletal: no edema, pulses present Neurological: moves all 4 limbs Psychiatric: normal affect, A&O x 3 Dx/Plan - Plan * 87M hx CABG, ESRD who initially presented with a CC of chest pain * * chest pain * elev troponin and pleural effusion on admit * known EF of 35% on prior ECHO in 07/2017 * recurrent earlier today with accompanying bradycardia in 20's on tele, by the time a formal EKG was conducted, pt's HR is now 60 without change from admission - leelee hernandez was activated * telemetry review - question of heart block? * repeat ECHO 2D * pt does not recall any prior event in the past 2 weeks of acute SOB/ Chest pressure/ chest discomfort - he recalls some medication changes since his discharge from the hospital but does not recall exactly which changes were made * consult cardiology * recheck BMP, serum Mg, troponin * transfer to CCU, place pacer pads, hold home carvedilol ESRD * apprec nephro c/s hx CABG * see above diet: cardiac activity: as suzanne dvt ppx greater than 30 min crit care time spent Review of Systems - Medications/Allergies Allergies/Adverse Reactions: Allergies Allergy/AdvReac Type Severity Reaction Status Date / Time Sulfa (Sulfonamide Allergy Unknown Verified 11/02/17 06:23 Antibiotics) amoxicillin Allergy Hives Verified 11/02/17 06:23 Medications: Current Medications Acetaminophen (Tylenol) 1,000 mg PO Q6H PRN PRN Reason: Headache/Fever or Mild Pain Aspirin (Aspirin Chewable) 81 mg PO DAILY [facility] Last Admin: 11/02/17 08:03 Dose: 81 mg Benzonatate (Tessalon) 100 mg PO Q4H PRN PRN Reason: Cough Carvedilol (Coreg) 3.125 mg PO BID-[facility] Last Admin: 11/02/17 08:03 Dose: 3.125 mg Clonidine (Catapres) 0.1 mg PO Q4H PRN PRN Reason: Systolic BP > 180 Dextrose/Water (Dextrose 50%) 25 gm SLOW IVP PRN PRN PRN Reason: Hypoglycemia Famotidine (Pepcid) 20 mg PO DAILY [facility] Last Admin: 11/02/17 08:03 Dose: 20 mg Glucagon (Glucagon) 1 mg IM PRN PRN PRN Reason: Hypoglycemia Hydralazine HCl (Apresoline) 10 mg SLOW IVP Q4H PRN PRN Reason: Systolic BP > 180 Dextrose/Water (D5w) 1,000 mls @ 0 mls/hr IV .Q0M PRN; As Directed PRN Reason: Hypoglycemia Insulin Human Lispro (Humalog) 0 units SC .MILD SLIDING SCALE PRN PRN Reason: Mild Correctional Scale Insulin Human Lispro (Humalog) 0 units SC .BEDTIME SLIDING SC PRN PRN Reason: Bedtime Correctional Scale Levothyroxine Sodium (Synthroid) 112 mcg PO 0600 [facility] Ondansetron HCl (Zofran Odt) 4 mg PO Q6H PRN PRN Reason: Nausea/Vomiting Ondansetron HCl (Zofran) 4 mg IVP Q6H PRN PRN Reason: Nausea/Vomiting
[2017-11-02] MEDS ORDERED: Heparin 1,000 UNITS/ML VIAL ONE (11:11)
[2017-11-02 11:12] LABS: #Basophils 0.1 thou/uL (0.0-0.2); #Eosinphils 0.1 thou/uL (0.0-0.7); #Lymphocytes 2.4 thou/uL (1.20-3.40); #Monocytes 1.3 thou/uL (0.11-0.59); #Neutrophils 5.8 thou/uL (1.40-6.50); %Eosinophils 1.1 % (0.0-10.0); %Lymphocytes 24.6 % (21.0-51.0); %Monocytes 13.4 % (0.0-10.0); %Neutrophils 59.9 % (42.0-75.0); Hemoglobin 11.9 g/dL (14.0-18.0); Mean Corpuscular HGB CONC 31.9 g/dL (32.0-36.0); Mean Corpuscular Hemoglobin 31.6 pg (27.0-31.0); Mean Corpuscular Volume 99.3 fl (80.0-94.0); Mean Platelet Volume 9.5 fL (7.4-10.4); Platelet Count 217 thou/uL (130-400); RBC Distribution Width 16.4 % (11.5-14.5); Red Blood Cell (RBC) Count 3.76 mill/uL (4.70-6.10); White Blood Cell (WBC) Count 9.6 thou/uL (4.8-10.8)
[2017-11-02 11:21] LABS: INR-International Normal Ratio 1.4; PTT 37.1 SEC (22.9-36.1); Prothrombin Time 17.9 SEC (12.0-14.7)
[2017-11-02 11:33] LABS: Anion Gap 20 mmol/L (10-20); BUN (Urea Nitrogen) 48 mg/dL (8.4-25.7); CK (CPK) 84 U/L (30-200); Calc. Creatinine Clearance 8 mL/min (70-130); Calcium 8.6 mg/dL (7.8-10.44); Carbon Dioxide 22 mmol/L (23-31); Chloride 93 mmol/L (98-107); Estimated GFR-MDRD 7; Glucose 271 mg/dL (83-110); Magnesium 2.3 mg/dL (1.6-2.6); Potassium 5.8 mmol/L (3.5-5.1); Sodium 129 mmol/L (136-145)
[2017-11-02 11:38] LABS: CKMB 2.6 ng/mL (0-6.6); Troponin I 0.217 ng/mL (< 0.028)
--- NOTE | 2017-11-02 13:01 | RAD ---
CHEST 1 VIEW: HISTORY: Bradycardia, dyspnea. COMPARISON: Comparison is made to CTA chest of prior day. FINDINGS: Layering bilateral pleural effusions are similar. Locular fluid within the left major fissure is sim ilar. Dialysis catheter tip is similar. Mild volume overload. IMPRESSION: Mild volume overload, slightly improving. POS: [facility]
[2017-11-02] MEDS ORDERED: DOPamine 400 MG/D5W 250 ML 250 ML IVPB PRN (15:48)
--- NOTE | 2017-11-02 19:01 | CON ---
DATE OF CONSULTATION: 10/23/2017 SERVICE: Pulmonary Medicine. REASON FOR CONSULTATION: ICU patient. HISTORY OF PRESENT ILLNESS: The patient is an 87-year-old white male with past medical history significant for chronic systolic heart failure. He had an episode of bradycardia on the floor. His heart rate was down into the 20s. He had mentation changes. A code green was activated and he was subsequently transitioned to the ICU. Initially, he is in a junctional rhythm, but then went back into a sinus rhythm with a first-degree AV block. At this point, hemodynamically stable. He did not require any additional interventions other than intensive monitoring. He denies any current chest pain or shortness of breath. He was put on oxygen, but never actually had any desaturation event. We are in the process of weaning this away at this time. Otherwise, there has been no interval change to his condition. PAST MEDICAL HISTORY: 1. Type 2 diabetes mellitus. 2. Hypothyroidism. 3. Dyslipidemia. 4. Hypertension. 5. End-stage renal disease. 6. Gastroesophageal reflux disease. 7. Coronary artery disease. 8. History of gout. PAST SURGICAL HISTORY: 1. Right forearm AV fistula placement. 2. Coronary artery bypass graft. 3. Colonoscopies, multiple. ALLERGIES: AMOXICILLIN, SULFA. MEDICATIONS: List of his inpatient medications were reviewed. No updates were made at this time. FAMILY HISTORY: Noncontributory. SOCIAL HISTORY: He has got a [id number] history of smoking, but quit remotely. He drinks a couple of times per week. He denies any street drugs. He currently is a resident of [facility]. No known exposure to chemicals, dust asbestos or tuberculosis. REVIEW OF SYSTEMS: General, head, ears, eyes, nose, throat, cardiovascular, respiratory, GI, , musculoskeletal, neurologic and skin is negative except as mentioned in the HPI. PHYSICAL EXAMINATION: VITAL SIGNS: Afebrile, pulse 70, blood pressure 100/42, respirations 18, saturation 95% on 1 liter nasal cannula. GENERAL: The patient is awake and alert. He is in no apparent distress. LUNGS: Excellent air entry. There are no crackles in the bibasilar regions. HEART: Normal rate, regular. ABDOMEN: Soft, nontender, nondistended. Bowel sounds are positive. MUSCULOSKELETAL: No cyanosis or clubbing. There is trace pitting in the bilateral lower extremities. NEUROLOGIC: Grossly nonfocal. LABORATORY DATA: WBC 9.6, hemoglobin 11.9, platelets 217,000. INR 1.4. Creatinine 7.29. BUN 48, potassium 5.8 and slightly elevated. Sodium 129. Basic metabolic profile is otherwise unremarkable. Troponin 0.21. TSH falls within the normal limits. Urinalysis is unremarkable. IMAGIN. Chest x-ray demonstrates no acute cardiopulmonary abnormality. 2. Ultrasound of the abdomen demonstrates thickened gallbladder without distention, possibly secondary to passive congestion. Negative Vázquez sign. Otherwise, no acute findings. 3. CTA of the chest demonstrates no acute pulmonary embolism. Moderate right pleural effusion. Small left pleural effusion. Pulmonary edema and interstitial fullness is identified. Ascites is also evident. ASSESSMENT: 1. End-stage renal disease. 2. Hyperkalemia. 3. Bradycardia with junctional escape rhythm, resolved. 4. End-stage renal disease, currently undergoing dialysis. PLAN: Ever since dialysis was initiated, the patient has been doing fairly well. He is returned to sinus rhythm with a first degree AV block. Cardiology is following. At this point, there is no indication for advanced interventions. Cardiology is considering pacemaker placement. We will watch him on telemetry in the ICU. If remains stable, we will consider to transition him out to the floor first thing in the morning. Pulmonary Critical Care will continue to follow while he remains in this location. 70 minutes have been devoted to this patient in various activities. I personally reviewed all imaging studies and laboratory data noted within this document. For fifty percent of this time, I was interacting with the patient at the bedside or coordinating care with the care team. For the remainder of the time I was immediately available to the patient in the hospital unit. RAINER
--- NOTE | 2017-11-02 19:27 | CON ---
DATE OF CONSULTATION: 11/02/2017 HISTORY OF PRESENT ILLNESS: The patient is an 87-year-old gentleman who has a history of coronary ar reginald bypass graft surgery and developed dyspnea and nearly lost consciousness. The patient had coron tri artery bypass graft surgery in 1998. He has been followed by Dr. Steve Cullen for the past severa l years. He was admitted with congestive heart failure in 07/2017. He was found to have a decreased ejection fraction approximately 30% to 35%. The patient had been on low dose Coreg. The patient de veloped acute onset of dyspnea and nearly lost consciousness. He was brought to the hospital for fur ther evaluation. On telemetry monitoring, the patient once again became very short of breath and dev eloped a very slow heart rate. The patient denied having any chest discomfort. PAST MEDICAL HISTORY: Significant for; 1. Cardiomyopathy. 2. Coronary artery bypass graft surgery. 3. Hypertension. 4. End-stage renal disease. 5. Diabetes mellitus. 6. Hyperlipidemia. PAST SURGICAL HISTORY: He has had coronary artery bypass graft surgery, AV fistula. MEDICATIONS: See nursing list. ALLERGIES: He is allergic to AMOXICILLIN and SULFA. SOCIAL HISTORY: Nonsmoker. PHYSICAL EXAMINATION: GENERAL: This is an ill-appearing gentleman, who is pale, in mild distress. VITAL SIGNS: Blood pressure 117/49. NECK: Showed no jugular venous distention. LUNGS: Have coarse breath sounds bilateral. HEART: Regular rate and rhythm, normal S1, S2. ABDOMEN: Nondistended. EXTREMITIES: Showed he has an AV fistula. LABORATORY DATA AND IMAGING: Sodium 129, potassium 5.8, chloride 93, bicarbonate 22, BUN is 48, crea tinine is 7.29. Troponin is 0.217. His EKG revealed him to have sinus bradycardia with a left bundl e branch block and a nonspecific ST-T wave abnormality. Telemetry monitoring revealed third degree A V block with an AV junctional escape rhythm. IMPRESSION: 1. Third degree AV block. 2. History of ischemic cardiomyopathy. 3. History of coronary artery bypass graft surgery. 4. Diabetes mellitus. 5. Hypertension. 6. End-stage renal disease. The patient had intermittent third degree AV block. The patient has been transferred to the ICU. Hi s Coreg has been discontinued. From a cardiac standpoint, we will repeat his echocardiogram to reeva luate his left ventricular function. He most likely needs to undergo either placement of an electron ic pacemaker or defibrillator. We will follow this patient with you through his hospitalization. PLAN: 1. Discontinue Coreg. 2. Monitored in ICU until external pacemaker in place. 3. Recheck echocardiogram. 4. Proceed with pacemaker/defibrillator. This is a critical care note, time is 30 minutes.
[2017-11-02] MEDS: HumaLOG 300 UNITS/3 ML VIAL SC PRN (20:48)
[2017-11-02] MEDS ORDERED: Atorvastatin Calcium 40 MG TAB PO SCH (21:00)
[2017-11-03] MEDS: Levothyroxine Sodium 112 MCG TAB PO SCH (05:57)
[2017-11-03] MEDS: HumaLOG 300 UNITS/3 ML VIAL SC PRN ×5 (06:01→21:20)
[2017-11-03] MEDS: Famotidine 20 MG TAB PO SCH (08:31)
--- NOTE | 2017-11-03 10:08 | PRG ---
DATE OF SERVICE: 11/03/2017 SERVICE: Pulmonary Medicine. INTERVAL HISTORY: The patient is doing fine from a cardiovascular and respiratory standpoint. He has had no events overnight. He has remained in sinus rhythm. He has not had any more junctional events. Otherwise, there has been no change to his condition. He denies any chest pain. PHYSICAL EXAMINATION: VITAL SIGNS: Afebrile, pulse 63, blood pressure 125/32, respirations 16, saturation 99% on room air. GENERAL: The patient is awake, alert, no apparent distress. LUNGS: Decent air entry. There is no prolonged expiratory phase, wheezing, rhonchi or crackles. HEART: Normal rate, regular. ABDOMEN: Soft, nontender, nondistended. Bowel sounds are positive. MUSCULOSKELETAL: No cyanosis or clubbing. There is no pitting in the bilateral lower extremities. NEUROLOGIC: Grossly nonfocal. LABORATORY DATA: Blood sugars ranged from 118-276. Troponin 0.217. ASSESSMENT: 1. End-stage renal disease. 2. Hyperkalemia, resolved. 3. Third degree heart block. PLAN: The patient will be transitioned out to the telemetry unit. When he leaves the ICU, I will sign off. He is requesting cough drop for tickle in his throat. I will go ahead and oblige. If the patient remains in this location, I will continue to follow. RAINER
[2017-11-03] MEDS: Cepastat Lozenges 1 LOZ PO PRN ×3 (11:29→18:53)
[2017-11-03] MEDS ORDERED: EPINEPHrine 1 MG, Admixture Fee 1 EACH in Dextrose 5% in Water 250 ML IVPB PRN ×3 (20:38)
[2017-11-03] MEDS: Atorvastatin Calcium 20 MG TAB PO SCH (21:20)
--- NOTE | 2017-11-03 23:57 | PDOC.PN ---
- Subjective Encounter Start Date: 11/03/17 Encounter Start Time: 20:00 Subjective: nsg notes rev, jamshid ovn, no new c/o, no further episodes of chest pain or -: bradycardia on telemetry - Objective Resuscitation Status: Resuscitation Status FULL:Full Resuscitation Vital Signs & Weight: Vital Signs (12 hours) Temp Pulse Resp Pulse Ox 11/03/17 20:00 98.1 F 67 22 H 100 11/03/17 16:00 97.7 F 11/03/17 12:00 97.9 F Weight Weight 169 lb 5.04 oz Most Recent Monitor Data Heart Rate from ECG 65 NIBP 110/45 NIBP BP-Mean 61 Respiration from ECG 21 SpO2 97 I&O: 11/02/17 11/03/17 11/04/17 06:59 06:59 06:59 Intake Total 39.4 500 660 Output Total 0 Balance 39.4 500 660 Result Diagrams: 11/05/17 03:44 11/05/17 03:44 Additional Labs: Accuchecks 11/03/17 11/03/17 11/03/17 21:15 15:45 11:12 POC Glucose 311 H 243 H 238 H 11/03/17 11/03/17 08:14 06:02 POC Glucose 160 H 167 H Phys Exam - Physical Examination Constitutional: NAD HEENT: PERRLA, moist MMs, sclera anicteric Respiratory: no wheezing, no rales, no rhonchi Cardiovascular: RRR, no significant murmur, no rub Gastrointestinal: soft, positive bowel sounds Neurological: moves all 4 limbs Psychiatric: normal affect, A&O x 3 Dx/Plan - Plan * 87M hx CABG, ESRD who initially presented with a CC of chest pain * * chest pain * appreciate cardiology c/s * elev troponin and pleural effusion on admit * known EF of 35% on prior ECHO in 07/2017, repeat pending * recurrent earlier today with accompanying bradycardia in 20's on tele, by the time a formal EKG was conducted, pt's HR is now 60 without change from admission - code green was activated * telemetry review - question of 3rd deg * transfer to CCU, place pacer pads, hold home carvedilol ESRD * apprec nephro c/s hx CABG * see above diet: cardiac activity: as suzanne dvt ppx Review of Systems - Medications/Allergies Allergies/Adverse Reactions: Allergies Allergy/AdvReac Type Severity Reaction Status Date / Time Sulfa (Sulfonamide Allergy Unknown Verified 11/02/17 06:23 Antibiotics) amoxicillin Allergy Hives Verified 11/02/17 06:23 Medications: Current Medications Acetaminophen (Tylenol) 1,000 mg PO Q6H PRN PRN Reason: Headache/Fever or Mild Pain Aspirin (Aspirin Chewable) 81 mg PO DAILY [facility] Last Admin: 11/04/17 09:15 Dose: Not Given Atorvastatin Calcium (Lipitor) 40 mg PO HS [facility] Last Admin: 11/04/17 20:38 Dose: 40 mg Clonidine (Catapres) 0.1 mg PO Q4H PRN PRN Reason: Systolic BP > 180 Dextrose/Water (Dextrose 50%) 25 gm SLOW IVP PRN PRN PRN Reason: Hypoglycemia Famotidine (Pepcid) 20 mg PO DAILY [facility] Last Admin: 11/04/17 09:15 Dose: Not Given Glucagon (Glucagon) 1 mg IM PRN PRN PRN Reason: Hypoglycemia Hydralazine HCl (Apresoline) 10 mg SLOW IVP Q4H PRN PRN Reason: Systolic BP > 180 Dextrose/Water (D5w) 1,000 mls @ 0 mls/hr IV .Q0M PRN; As Directed PRN Reason: Hypoglycemia Epinephrine 1 mg/Miscellaneous Medication 1 each/ Dextrose/Water 251 mls @ 0 mls/hr IVPB INF PRN; Protocol; Titrate PRN Reason: SUSTAINED BRADYCARDIA Insulin Human Lispro (Humalog) 0 units SC .MILD SLIDING SCALE PRN PRN Reason: Mild Correctional Scale Last Admin: 11/05/17 06:04 Dose: 4 unit Insulin Human Lispro (Humalog) 0 units SC .BEDTIME SLIDING SC PRN PRN Reason: Bedtime Correctional Scale Last Admin: 11/03/17 21:20 Dose: 4 unit Levothyroxine Sodium (Synthroid) 112 mcg PO 0600 [facility] Last Admin: 11/05/17 06:04 Dose: 112 mcg Ondansetron HCl (Zofran) 4 mg IVP Q6H PRN PRN Reason: Nausea/Vomiting Throat Lozenges (Cepastat Lozenges) 1 richy PO Q2H PRN PRN Reason: Sore Throat Last Admin: 11/03/17 18:53 Dose: 1 richy
[2017-11-04] MEDS: Levothyroxine Sodium 112 MCG TAB PO SCH (06:16)
[2017-11-04 06:28] LABS: Anion Gap 19 mmol/L (10-20); BUN (Urea Nitrogen) 43 mg/dL (8.4-25.7); Calc. Creatinine Clearance 9 mL/min (70-130); Calcium 8.7 mg/dL (7.8-10.44); Carbon Dioxide 24 mmol/L (23-31); Chloride 94 mmol/L (98-107); Estimated GFR-MDRD 8; Glucose 211 mg/dL (83-110); Potassium 4.7 mmol/L (3.5-5.1); Sodium 132 mmol/L (136-145)
[2017-11-04 06:37] LABS: Acanthocytes SLIGHT = 1-5 cells (100X) (None Seen); Burr Cells SLIGHT = 2-5 cells (100X) (0-1/hpf); Eosinophils 3 % (0-10); Hemoglobin 11.4 g/dL (14.0-18.0); Lymphocytes 17 % (21-51); MDiff Complete? YES; Mean Corpuscular HGB CONC 32.5 g/dL (32.0-36.0); Mean Corpuscular Hemoglobin 32.2 pg (27.0-31.0); Mean Platelet Volume 9.6 fL (7.4-10.4); Monocytes 14 % (0-10); Neutrophil 66 % (42-75); Platelet Count 210 thou/uL (130-400); RBC Distribution Width 16.5 % (11.5-14.5); Red Blood Cell (RBC) Count 3.55 mill/uL (4.70-6.10); White Blood Cell (WBC) Count 10.9 thou/uL (4.8-10.8)
[2017-11-04] MEDS: Famotidine 20 MG TAB PO SCH (09:15)
--- NOTE | 2017-11-04 10:22 | PRG ---
DATE OF SERVICE: 11/04/2017 SERVICE: Pulmonary Medicine. INTERVAL HISTORY: The patient is doing fine from a respiratory standpoint. He has no chest pain. Carisa martinez has had no bradycardic events over the last day and a half. Otherwise, there has been no interval change to condition. PHYSICAL EXAMINATION: VITAL SIGNS: Afebrile, pulse 65, blood pressure 92/31, respirations 18, saturation 95% on 2 liters n oscar cannula. GENERAL: The patient is awake, alert, no apparent distress. LUNGS: Excellent air entry. There is no prolonged expiratory phase, wheezing, rhonchi, or crackles present. HEART: Normal rate and regular. ABDOMEN: Soft, nontender, nondistended. Bowel sounds are positive. MUSCULOSKELETAL: No cyanosis or clubbing. There is no pitting in the bilateral lower extremities. NEUROLOGIC: Grossly nonfocal. IMAGING DATA: Echocardiogram demonstrates a 10% ejection fraction. Left atrium is dilated. Severe mitral regurgitation is present. Moderate tricuspid regurg is present. ASSESSMENT: 1. End-stage renal disease. 2. Third degree heart block. 3. Acute systolic heart failure with 10% ejection fraction. 4. Severe mitral regurgitation. PLAN: At this point, the patient remains stable for transition out of the ICU to the telemetry unit. Pulmonary will continue to follow along as long as he remains in this location. It is my understan ding that a pacemaker defibrillator is being considered. Please call with additional questions or co ncerns moving forward.
[2017-11-04] MEDS: HumaLOG 300 UNITS/3 ML VIAL SC PRN ×2 (17:42→20:39)
--- NOTE | 2017-11-04 17:58 | PDOC.CTH ---
Cardiology Progress Note - Subjective His breathing is better. He has not had any chest pain or tightness but he is still unable to lay flat due to cough and SOB. - Objective Vital Signs Temp Pulse Resp Pulse Ox 11/04/17 12:00 97.8 F 11/04/17 08:00 97.6 F 64 18 94 L 11/04/17 07:05 95 Admit Weight 170 lb Weight 170 lb 3.15 oz 11/03/17 11/04/17 11/05/17 06:59 06:59 06:59 Intake Total 500 660 120 Output Total 0 Balance 500 660 120 - Physical Examination General/Neuro: alert & oriented x3, NAD Neck: no JVD present Lungs: CTA, unlabored respirations Heart: RRR Abdomen: NT/ND Extremities: + edema B (trace) - Telemetry Telemetry Rhythm: NSR - Labs Result Diagrams: 11/04/17 04:13 11/04/17 04:13 Troponin/CKMB CK-MB (CK-2) 2.6 ng/mL (0-6.6) 11/02/17 11:08 Troponin I 0.217 ng/mL (< 0.028) H 11/02/17 11:08 - Assessment/Plan 1. Syncope 2. Third degree AV Block 3. Acute on chronic systolic heart failure 4. CAD, s/p CABG in 1998 5. Ischemic CM EF at 10-15% 6. ESRD on HD PLAN: - EP consult for placement of an AICD. - Will need further risk stratification with a C due to a significant decrease in LV function EF from 35-40% down to 10-15%. He is unable to lay flat still so will plan on doing this Saturday. - To remian in ICU for now de to severe LV dysfunction and symptomatic 3rd degree AV block.
[2017-11-04] MEDS: Atorvastatin Calcium 20 MG TAB PO SCH (20:38)
[2017-11-04] MEDS ORDERED: Ondansetron HCl/PF 4 MG/2 ML Vial IVP PRN (21:42)
--- NOTE | 2017-11-04 22:06 | CON ---
DATE OF CONSULTATION: 11/04/2017 ELECTROPHYSIOLOGY CONSULTATION This is an electrophysiology consultation dictated for Dr. Chang Linares. REFERRING PHYSICIAN: Dayday Schulz MD ERP TECHNICAL LEAD: Steve Cullen MD REASON FOR CONSULTATION: Intermittent third-degree AV block and LVEF of 10%-15%. HISTORY OF PRESENT ILLNESS: Mr. Garrison is a very pleasant 87-year-old gentleman with a longstand ing history of coronary artery disease, has previously undergone bypass graft surgery. He was also r ecently begun with hemodialysis. He has been followed by Dr. Steve Cullen with Cardiology at [facility] for several years and by record review had a normal EF by PET scan in 2015, which was decreased to 35%-40% by echo in 07/2017. He has not had a recent heart catheterization given his chronic kidney d isease (this is prior to going on dialysis), and has been maintained on low-dose Coreg and medically managed for his heart failure. Recently, he was admitted to the hospital on 11/02/2017 after having acute onset of shortness of breath and nearly lost conscious. He has had some recurrent respiratory illnesses over the past couple months. He came to the hospital for further evaluation. While on mon itor, the patient had an episode again becoming very short of breath and was seen to have a very slow heart rate. He denies any heart racing, palpitations, chest pain or pressure, or syncopal episodes. He does have intermittent dyspnea and shortness of breath, as well as near syncopal episodes. He h as not had any stroke or stroke-like symptoms, and denies swelling of the extremities. A 2D transtho racic ultrasound was done and reveals an ejection fraction now even further reduced at 10%-15% with m ild left atrial dilation, marked right atrial enlargement. Today, he is reported feeling some better, but continues to have shortness of breath and is wearing s upplemental oxygen. He has severe shortness of breath with even minimal activity and is unable to li e flat comfortably. He has a persistent dry cough as well. REVIEW OF SYSTEMS: A 12-point review of systems was conducted and is negative except that listed abo ve in the HPI. PAST MEDICAL HISTORY: 1. Ischemic cardiomyopathy with reducing ejection fraction. Normal by PET scan in 2015, 30%-35% by echo in 07/2017, now 10%-15% by echo this hospitalization. 2. Coronary artery disease with prior bypass grafting. 3. Hypertension. 4. End-stage renal disease, on dialysis. 5. Diabetes. 6. Hyperlipidemia. PAST SURGICAL HISTORY: CABG and AV fistula to the right upper extremity. ALLERGIES: AMOXICILLIN and SULFA. HOME MEDICATIONS: Nexium 20 mg daily, doxepin HCL 25 mg p.o. at bedtime as needed, B complex with fo lic acid 1 tab daily, Lipitor 40 mg at bedtime, allopurinol 200 mg p.o. b.i.d., NovoLog 6 units subcu taneously daily, Humulin sliding scale, aspirin 81 mg daily, levothyroxine 112 mcg daily, and carvedi lol 3.125 mg p.o. b.i.d. SOCIAL HISTORY: Negative for tobacco habituation, alcohol consumption, or illicit drug use. PHYSICAL EXAMINATION: VITAL SIGNS: Temperature 97.8 degrees Fahrenheit, pulse is 72, blood pressure 101/32, respirations 2 1, oxygen saturation 97%. GENERAL: This is a somewhat frail-appearing elderly gentleman in no acute distress. He is pale and appears chronically ill. He is alert and oriented. His speech is clear and his affect is appropriat e. He is sitting semirecumbent in bed. NECK: Supple with mild jugular venous distention. His thyroid is nonpalpable. There is no lymphade nopathy. LUNGS: His lung sounds are coarse with faint bibasilar crackles. HEART: His heart rate is regular with normal S1, S2. PMI is nonpalpable. EXTREMITIES: Warm and dry to touch without clubbing, cyanosis, or edema. On the forearm of his righ t upper extremity, he has extensive bruising around the area of his AV fistula. ABDOMEN: Soft and nontender without palpable masses. There are positive bowel sounds noted througho ut. NEUROLOGIC: Grossly intact and nonfocal. LABORATORY DATA: Sodium 132, potassium 4.7, chloride 94, carbon dioxide 24, BUN 43, creatinine 6.31, glucose 211, calcium 8.7. Potassium is 5.3 on admission and 5.8 on 11/02/2017. WBC 10.9, hemoglobi n 11.4, hematocrit 35.2, platelet count of 210. Serial troponins were conducted and never exceeded 0 .2. Telemetry and EKG Review: The patient is currently in sinus arrhythmia, was previously experiencing intermittent third-degree heart block as well as some junctional escape beats. IMPRESSION: 1. Ischemic cardiomyopathy with a worsening left ventricular ejection fraction now at 10%-15%. No r ecent heart catheterization. 2. History of coronary artery disease with prior bypass grafting. 3. Intermittent third-degree AV block with AV junctional escape rhythm, currently maintaining sinus rhythm. 4. Hyperkalemia, currently within normal limits. 5. Diabetes. 6. Hypertension. 7. End-stage renal disease. PLAN: We discussed arrhythmias and cardiomyopathy at length with the patient. His ejection fraction has steadily decreased over the past 4-6 months. I spoke to his acid tester Nancy BAILEY w ho informed me that they have been trying to get Mr. Garrison in for a stress test or left heart ca theterization for some time, but this has not been able to be done given his progressive renal diseas e. This was prior to him being initiated on dialysis. We also discussed indications for a pacemaker , as well as risks and benefits regarding pacemaker and ICDs. The patient has had a chance to ask qu estions, all of which were answered. Risks associated with a pacemaker and defibrillator insertion i nclude pain; swelling; bruising; damage to the surrounding tissues, nerves, or organs; perforation of lung; perforation of the heart; need for surgical repair or chest tube placement; as well as possibl e . The patient verbalizes understanding and would like to go forward with device placement at the earliest convenience. We will schedule him for a biventricular ICD tomorrow afternoon. He still has mild congestive heart failure symptoms and is unable to lie flat comfortably and is experiencing some hypotension. We will re-evaluate in the morning and make sure he is hemodynamically stable [facility] to undergo biventricular ICD implantation. Thank you for allowing us to participate in the care of this patient.
--- NOTE | 2017-11-04 23:31 | PDOC.PN ---
- Subjective Encounter Start Date: 11/04/17 Encounter Start Time: 18:00 Subjective: nsg notes rev, jamshid ovn, at bedside, no new c/o other than -: "frustrated about the food situation" specifically the quality and -: restrictions - Objective Resuscitation Status: Resuscitation Status FULL:Full Resuscitation Vital Signs & Weight: Vital Signs (12 hours) Temp Pulse Resp Pulse Ox 11/04/17 20:00 98.2 F 70 14 92 L 11/04/17 16:00 97.9 F 11/04/17 12:00 97.8 F Weight Admit Weight 170 lb Weight 170 lb 3.15 oz Most Recent Monitor Data Heart Rate from ECG 71 NIBP 112/44 NIBP BP-Mean 78 Respiration from ECG 22 SpO2 95 I&O: 11/03/17 11/04/17 11/05/17 06:59 06:59 06:59 Intake Total 500 660 480 Output Total 0 100 Balance 500 660 380 Result Diagrams: 11/05/17 03:44 11/05/17 03:44 Additional Labs: Accuchecks 11/04/17 11/04/17 11/04/17 20:39 17:04 12:01 POC Glucose 307 H 253 H 209 H 11/04/17 06:17 POC Glucose 188 H Phys Exam - Physical Examination Constitutional: NAD HEENT: PERRLA, moist MMs Respiratory: no wheezing, no rales, no rhonchi, clear to auscultation bilateral Cardiovascular: RRR, no significant murmur, no rub Gastrointestinal: soft, non-tender, no distention, positive bowel sounds Musculoskeletal: pulses present Neurological: moves all 4 limbs Psychiatric: normal affect, A&O x 3 Dx/Plan - Plan * 87M hx CABG, ESRD who initially presented with a CC of chest pain * * chest pain * appreciate cardiology c/s * appreciate EP c/s * elev troponin and pleural effusion on admit * known EF of 35% on prior ECHO in 07/2017, repeat ECHO with EF 10-15% * AICD vs PPM * 11/02 episode of bradycardia ? 3rd deg HB * continue pacer pads, hold home carvedilol ESRD * apprec nephro c/s hx CABG * see above diet: cardiac activity: as suzanne dvt ppx Greater than 30 min spent discussing plan of care at bedside with patient and his Review of Systems - Medications/Allergies Allergies/Adverse Reactions: Allergies Allergy/AdvReac Type Severity Reaction Status Date / Time Sulfa (Sulfonamide Allergy Unknown Verified 11/02/17 06:23 Antibiotics) amoxicillin Allergy Hives Verified 11/02/17 06:23 Medications: Current Medications Acetaminophen (Tylenol) 1,000 mg PO Q6H PRN PRN Reason: Headache/Fever or Mild Pain Aspirin (Aspirin Chewable) 81 mg PO DAILY [facility] Last Admin: 11/04/17 09:15 Dose: Not Given Atorvastatin Calcium (Lipitor) 40 mg PO HS [facility] Last Admin: 11/04/17 20:38 Dose: 40 mg Clonidine (Catapres) 0.1 mg PO Q4H PRN PRN Reason: Systolic BP > 180 Dextrose/Water (Dextrose 50%) 25 gm SLOW IVP PRN PRN PRN Reason: Hypoglycemia Famotidine (Pepcid) 20 mg PO DAILY [facility] Last Admin: 11/04/17 09:15 Dose: Not Given Glucagon (Glucagon) 1 mg IM PRN PRN PRN Reason: Hypoglycemia Hydralazine HCl (Apresoline) 10 mg SLOW IVP Q4H PRN PRN Reason: Systolic BP > 180 Dextrose/Water (D5w) 1,000 mls @ 0 mls/hr IV .Q0M PRN; As Directed PRN Reason: Hypoglycemia Epinephrine 1 mg/Miscellaneous Medication 1 each/ Dextrose/Water 251 mls @ 0 mls/hr IVPB INF PRN; Protocol; Titrate PRN Reason: SUSTAINED BRADYCARDIA Insulin Human Lispro (Humalog) 0 units SC .MILD SLIDING SCALE PRN PRN Reason: Mild Correctional Scale Last Admin: 11/05/17 06:04 Dose: 4 unit Insulin Human Lispro (Humalog) 0 units SC .BEDTIME SLIDING SC PRN PRN Reason: Bedtime Correctional Scale Last Admin: 11/03/17 21:20 Dose: 4 unit Levothyroxine Sodium (Synthroid) 112 mcg PO 0600 [facility] Last Admin: 11/05/17 06:04 Dose: 112 mcg Ondansetron HCl (Zofran) 4 mg IVP Q6H PRN PRN Reason: Nausea/Vomiting Throat Lozenges (Cepastat Lozenges) 1 richy PO Q2H PRN PRN Reason: Sore Throat Last Admin: 11/03/17 18:53 Dose: 1 richy
[2017-11-05 04:49] LABS: Anion Gap 23 mmol/L (10-20); BUN (Urea Nitrogen) 59 mg/dL (8.4-25.7); Calc. Creatinine Clearance 8 mL/min (70-130); Calcium 8.5 mg/dL (7.8-10.44); Carbon Dioxide 19 mmol/L (23-31); Chloride 94 mmol/L (98-107); Estimated GFR-MDRD 7; Glucose 275 mg/dL (83-110); Potassium 5.9 mmol/L (3.5-5.1); Sodium 130 mmol/L (136-145)
[2017-11-05 05:26] LABS: Hemoglobin 11.1 g/dL (14.0-18.0); Mean Corpuscular HGB CONC 32.7 g/dL (32.0-36.0); Mean Corpuscular Hemoglobin 32.3 pg (27.0-31.0); Mean Corpuscular Volume 98.7 fl (80.0-94.0); Mean Platelet Volume 9.6 fL (7.4-10.4); Platelet Count 206 thou/uL (130-400); RBC Distribution Width 16.6 % (11.5-14.5); Red Blood Cell (RBC) Count 3.44 mill/uL (4.70-6.10); White Blood Cell (WBC) Count 12.2 thou/uL (4.8-10.8)
[2017-11-05 05:27] LABS: Band 3 % (5-11); Lymphocytes 14 % (21-51); MDiff Complete? YES; Monocytes 5 % (0-10); Neutrophil 78 % (42-75)
[2017-11-05] MEDS: Levothyroxine Sodium 112 MCG TAB PO SCH (06:04)
[2017-11-05] MEDS: HumaLOG 300 UNITS/3 ML VIAL SC PRN (06:04)
[2017-11-05] MEDS ORDERED: Bupivacaine PF 0.5% 30 ML VIAL ONE (07:18)
--- NOTE | 2017-11-05 09:21 | PRG ---
DATE OF SERVICE: 11/05/2017 SERVICE: Pulmonary Medicine. INTERVAL HISTORY: The patient is doing fine from a respiratory standpoint. He is breathing comforta kelin. He is on a little bit of oxygen, but at this time he has got no specific issues. He is looking down for his pacemaker today. He had no events on telemetry for over 48 hours. PHYSICAL EXAMINATION: VITAL SIGNS: Afebrile, pulse 67, blood pressure 104/54, respirations 18, saturation 96% on 2 liters nasal cannula. GENERAL: The patient is awake, alert, no apparent distress. LUNGS: Decent air entry. Dependent crackles are minimal. HEART: Normal rate and regular. ABDOMEN: Soft, nontender, nondistended. Bowel sounds are positive. MUSCULOSKELETAL: No cyanosis or clubbing. There is no pitting in the bilateral lower extremities. NEUROLOGIC: Grossly nonfocal. LABORATORY DATA: WBC trends upward to 12.2, hemoglobin 11.1 and stable, platelets 206,000. Creatini ne 7.73 and BUN 59. Bicarbonate 19 and down trending, anion gap 23. Potassium 5.9, sodium 130. ASSESSMENT: 1. End-stage renal disease. 2. Third degree heart block. 3. Acute systolic heart failure with 10% ejection fraction. 4. Severe mitral regurgitation. PLAN: The patient is going down for his pacemaker/ICD today. Pulmonary will continue to follow if ankur martinez remains in this location. From my perspective; however, he will be stable for transition to the te lemetry unit once this device is in place. When he arrives on the floor, he will have no further req uirements for inpatient Pulmonary or Critical Care opinion and I will sign off. Please call with add itional questions or concerns.
[2017-11-05] MEDS ORDERED: CEFAZOLIN/Water 2 GM/20 ML SYRINGE SLOW IVP SCH (09:30)
[2017-11-05 10:02] LABS: INR-International Normal Ratio 1.6; PTT 31.6 SEC (22.9-36.1); Prothrombin Time 19.4 SEC (12.0-14.7)
[2017-11-05] MEDS: Cepastat Lozenges 1 LOZ PO PRN (10:41)
[2017-11-05] MEDS: Famotidine 20 MG TAB PO SCH (10:44)
[2017-11-05] MEDS ORDERED: PHENYLEPHRINE-NS 100 MCG/ML 10 ML SYRINGE ONE (11:33)
[2017-11-05] MEDS ORDERED: Glycopyrrolate 0.2 MG/ML 5 ML SYRINGE ONE (11:33)
[2017-11-05] MEDS ORDERED: Calcium Chloride 1 GM/10 ML Abboject SYRINGE ONE (11:33)
[2017-11-05] MEDS ORDERED: ePHEDrine/0.9% NaCl/PF SYRINGE 50 mg/10 ml ONE (11:33)
--- NOTE | 2017-11-05 12:37 | PDOC.CTH ---
Cardiology Progress Note - Subjective He is still SOB but will have dialysis later today. - Objective Vital Signs Temp Pulse Resp Pulse Ox 11/05/17 12:00 97.5 F L 97 11/05/17 08:00 98.4 F 67 22 H 93 L 11/05/17 04:00 98.1 F Admit Weight 170 lb Weight 169 lb 1.513 oz 11/04/17 11/05/17 11/06/17 06:59 06:59 06:59 Intake Total 660 480 Output Total 100 Balance 660 380 - Physical Examination General/Neuro: alert & oriented x3 Neck: no JVD present Lungs: CTA Heart: RRR Abdomen: NT/ND Extremities: + edema B (1+) - Telemetry Telemetry Rhythm: NSR - Labs Result Diagrams: 11/05/17 03:44 11/05/17 03:44 Troponin/CKMB CK-MB (CK-2) 2.6 ng/mL (0-6.6) 11/02/17 11:08 Troponin I 0.217 ng/mL (< 0.028) H 11/02/17 11:08 - Assessment/Plan 1. Syncope 2. Third degree AV Block 3. Acute on chronic systolic heart failure 4. CAD, s/p CABG in 1998 5. Ischemic CM EF at 10-15% 6. ESRD on HD PLAN: - EP for AICD. - Will need further risk stratification with a [facility] due to a significant decrease in LV function EF from 35-40% down to 10-15%. Will plan on doing this tomorrow. - May go telemetry floor after AICD placed.
--- NOTE | 2017-11-05 12:39 | PDOC.PN ---
- Subjective Encounter Start Date: 11/05/17 Encounter Start Time: 11:30 Subjective: awake, no sob or palp -: is getting hemodialysis - Objective Resuscitation Status: Resuscitation Status FULL:Full Resuscitation MAR Reviewed: Yes Vital Signs & Weight: Vital Signs (12 hours) Temp Pulse Resp Pulse Ox 11/05/17 12:00 97.5 F L 97 11/05/17 08:00 98.4 F 67 22 H 93 L 11/05/17 04:00 98.1 F Weight Admit Weight 170 lb Weight 169 lb 1.513 oz Most Recent Monitor Data Heart Rate from ECG 68 NIBP 117/45 NIBP BP-Mean 73 Respiration from ECG 21 SpO2 96 I&O: 11/04/17 11/05/17 11/06/17 06:59 06:59 06:59 Intake Total 660 480 Output Total 100 Balance 660 380 Result Diagrams: 11/05/17 03:44 11/05/17 03:44 Additional Labs: Accuchecks 11/05/17 11/04/17 11/04/17 11:05 20:39 17:04 POC Glucose 143 H 307 H 253 H Phys Exam - Physical Examination HEENT: PERRLA, moist MMs Neck: no JVD, supple Respiratory: no wheezing, no rales Cardiovascular: RRR, no significant murmur Gastrointestinal: soft, non-tender, positive bowel sounds Musculoskeletal: no edema, pulses present Neurological: non-focal, moves all 4 limbs Psychiatric: A&O x 3 Dx/Plan (1) Third degree AV block Code(s): I44.2 - ATRIOVENTRICULAR BLOCK, COMPLETE Status: Acute (2) Moderate mitral regurgitation Code(s): I34.0 - NONRHEUMATIC MITRAL (VALVE) INSUFFICIENCY Status: Chronic (3) Acute combined systolic and diastolic congestive heart failure Code(s): I50.41 - ACUTE COMBINED SYSTOLIC AND DIASTOLIC (CONGESTIVE) HRT FAIL Status: Chronic Comment: ef is down to 10-15% now (4) ESRD (end stage renal disease) on dialysis Code(s): N18.6 - END STAGE RENAL DISEASE; Z99.2 - DEPENDENCE ON RENAL DIALYSIS Status: Acute Comment: initiating dialysis, today HD. silvia. (5) CAD (coronary artery disease) Code(s): I25.10 - ATHSCL HEART DISEASE OF [place] CORONARY ARTERY W/O ANG PCTRS Status: Chronic Qualifiers: Coronary Disease-Associated Artery/Lesion type: bypass graft [place] vs. transplanted heart: [place] heart Associated angina: without angina Qualified Code(s): I25.810 - Atherosclerosis of coronary artery bypass graft(s) without angina pectoris (6) DM2 (diabetes mellitus, type 2) Status: Chronic Qualifiers: Diabetes mellitus usp insulin use: with usp use Diabetes mellitus complication status: with kidney complications Diabetes mellitus complication detail: with chronic kidney disease Chronic kidney disease stage : on chronic dialysis Qualified Code(s): E11.22 - Type 2 diabetes mellitus with diabetic chronic kidney disease; N18.6 - End stage renal disease; N18.6 - End stage renal disease; N18.6 - End stage renal disease; N18.6 - End stage renal disease; 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; Z79.4 - [facility] ( current) use of insulin; 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; Z79.4 - [facility] (current) use of insulin; Z99.2 - Dependence on renal dialysis; Z99.2 - Dependence on renal dialysis; Z99.2 - Dependence on renal dialysis; Z99.2 - Dependence on renal dialysis (7) Hyperlipidemia Code(s): E78.5 - HYPERLIPIDEMIA, UNSPECIFIED Status: Chronic Qualifiers: Hyperlipidemia type: unspecified Qualified Code(s): E78.5 - Hyperlipidemia , unspecified (8) Hypertension Code(s): I10 - ESSENTIAL (PRIMARY) HYPERTENSION Status: Chronic Qualifiers: Hypertension type: essential hypertension Qualified Code(s): I10 - Essential (primary) hypertension - Plan for AICD with biventricular pacer and cardiac cath today -: is awake and oriented well, getting HD now -: has dry cough ?vol overload, hopefully will get better with vol removal -: aspirin, lipitor -: hemostable now * . Review of Systems - Medications/Allergies Allergies/Adverse Reactions: Allergies Allergy/AdvReac Type Severity Reaction Status Date / Time Sulfa (Sulfonamide Allergy Unknown Verified 11/02/17 06:23 Antibiotics) amoxicillin Allergy Hives Verified 11/02/17 06:23 Medications: Current Medications Acetaminophen (Tylenol) 1,000 mg PO Q6H PRN PRN Reason: Headache/Fever or Mild Pain Aspirin (Aspirin Chewable) 81 mg PO DAILY [facility] Last Admin: 11/04/17 09:15 Dose: Not Given Atorvastatin Calcium (Lipitor) 40 mg PO HS [facility] Last Admin: 11/04/17 20:38 Dose: 40 mg Cefazolin Sodium (Ancef) 2 gm SLOW IVP [facility] Dextrose/Water (Dextrose 50%) 25 gm SLOW IVP PRN PRN PRN Reason: Hypoglycemia Famotidine (Pepcid) 20 mg PO DAILY [facility] Last Admin: 11/05/17 10:44 Dose: 20 mg Glucagon (Glucagon) 1 mg IM PRN PRN PRN Reason: Hypoglycemia Hydralazine HCl (Apresoline) 10 mg SLOW IVP Q4H PRN PRN Reason: Systolic BP > 180 Dextrose/Water (D5w) 1,000 mls @ 0 mls/hr IV .Q0M PRN; As Directed PRN Reason: Hypoglycemia Epinephrine 1 mg/Miscellaneous Medication 1 each/ Dextrose/Water 251 mls @ 0 mls/hr IVPB INF PRN; Protocol; Titrate PRN Reason: SUSTAINED BRADYCARDIA Insulin Human Lispro (Humalog) 0 units SC .MILD SLIDING SCALE PRN PRN Reason: Mild Correctional Scale Last Admin: 11/05/17 06:04 Dose: 4 unit Insulin Human Lispro (Humalog) 0 units SC .BEDTIME SLIDING SC PRN PRN Reason: Bedtime Correctional Scale Last Admin: 11/03/17 21:20 Dose: 4 unit Levothyroxine Sodium (Synthroid) 112 mcg PO 0600 [facility] Last Admin: 11/05/17 06:04 Dose: 112 mcg Ondansetron HCl (Zofran) 4 mg IVP Q6H PRN PRN Reason: Nausea/Vomiting Throat Lozenges (Cepastat Lozenges) 1 richy PO Q2H PRN PRN Reason: Sore Throat Last Admin: 11/05/17 10:41 Dose: 1 richy
[2017-11-05 13:11] LABS: Anion Gap 16 mmol/L (10-20); BUN (Urea Nitrogen) 23 mg/dL (8.4-25.7); Calc. Creatinine Clearance 18 mL/min (70-130); Calcium 8.4 mg/dL (7.8-10.44); Carbon Dioxide 27 mmol/L (23-31); Chloride 97 mmol/L (98-107); Estimated GFR-MDRD 19; Glucose 130 mg/dL (83-110); Potassium 3.6 mmol/L (3.5-5.1); Sodium 136 mmol/L (136-145)
[2017-11-05] MEDS ORDERED: Lidocaine 1% (PF) 30 ML VIAL ONE (13:21)
[2017-11-05] MEDS ORDERED: Clindamycin/D5W 900 mg/50 ml Premix Bag ONE (13:59)
[2017-11-05] MEDS ORDERED: Levofloxacin 500 mg/D5W 100 ml Premix Bag ONE (13:59)
[2017-11-05] MEDS ORDERED: Midazolam HCl 5 mg/5 ml Vial ONE (14:13)
[2017-11-05] MEDS ORDERED: Ketamine 50 MG/ML VIAL ONE (14:13)
[2017-11-05] MEDS ORDERED: Albumin 5% 0 ML ONE (14:14)
[2017-11-05] MEDS ORDERED: Lidocaine 2% Jelly 5 ML TUBE ONE (14:29)
[2017-11-05] MEDS ORDERED: Morphine Sulfate 2 MG/ML SYRINGE SLOW IVP PRN (16:00)
[2017-11-05] MEDS ORDERED: Ondansetron HCl/PF 4 MG/2 ML Vial IVP PRN (16:00)
[2017-11-05] MEDS: Clindamycin 150 MG CAP PO SCH (21:07)
[2017-11-05] MEDS: Atorvastatin Calcium 20 MG TAB PO SCH (21:07)
[2017-11-06 05:44] LABS: Anion Gap 22 mmol/L (10-20); BUN (Urea Nitrogen) 41 mg/dL (8.4-25.7); Calc. Creatinine Clearance 10 mL/min (70-130); Calcium 8.9 mg/dL (7.8-10.44); Carbon Dioxide 23 mmol/L (23-31); Chloride 92 mmol/L (98-107); Estimated GFR-MDRD 10; Glucose 291 mg/dL (83-110); Potassium 5.9 mmol/L (3.5-5.1); Sodium 131 mmol/L (136-145)
[2017-11-06 05:54] LABS: Acanthocytes SLIGHT = 1-5 cells (100X) (None Seen); Burr Cells SLIGHT = 2-5 cells (100X) (0-1/hpf); Hemoglobin 10.9 g/dL (14.0-18.0); Lymphocytes 9 % (21-51); MDiff Complete? YES; Mean Corpuscular HGB CONC 32.6 g/dL (32.0-36.0); Mean Corpuscular Hemoglobin 33.4 pg (27.0-31.0); Mean Platelet Volume 10.4 fL (7.4-10.4); Monocytes 17 % (0-10); Neutrophil 74 % (42-75); Nucleated RBC 1 % (0); Platelet Count 167 thou/uL (130-400); RBC Distribution Width 16.7 % (11.5-14.5); Red Blood Cell (RBC) Count 3.28 mill/uL (4.70-6.10); White Blood Cell (WBC) Count 9.6 thou/uL (4.8-10.8)
[2017-11-06] MEDS: HumaLOG 300 UNITS/3 ML VIAL SC PRN ×4 (06:45→21:12)
[2017-11-06] MEDS: Famotidine 20 MG TAB PO SCH (08:19)
[2017-11-06] MEDS: Clindamycin 150 MG CAP PO SCH ×3 (08:19→21:12)
[2017-11-06] MEDS: Levothyroxine Sodium 112 MCG TAB PO SCH (08:19)
--- NOTE | 2017-11-06 08:30 | RAD ---
CHEST 1 VIEW: HISTORY: Defibrillator placement. Followup. COMPARISON: 11/02/17. FINDINGS: Cardiac silhouette is magnified and enlarged. Pulmonary vasculature is slightly more engorged than o n the prior study. Parenchymal opacity projecting over the superior segment left lower lobe is now p artially obscured by the cardiac silhouette. Bibasilar atelectasis has increased slightly. Mediasti num is midline with postoperative changes, right internal jugular central venous catheter, and aortic calcifications. Multilead left subclavian cardiac electronic device is now in place. Cardiac monit or leads overlie the chest. IMPRESSION: 1. Interval placement of a multilead left subclavian cardiac electronic device without evidence of c omplication. 2. Slight interval increase in bibasilar atelectasis and pulmonary vascular congestion. POS: [facility]
--- NOTE | 2017-11-06 09:56 | PRG ---
DATE OF SERVICE: 11/06/2017 SUBJECTIVE: Mr. Garrison is doing well one day after his ICD implant. OBJECTIVE: VITAL SIGNS: Blood pressure 119/52, heart rate 78, respiratory rate is 13, temperature 97.6 degrees Fahrenheit. GENERAL: Reveals an alert and oriented man in no apparent distress. NECK: Supple. Jugular veins not distended. CHEST: Right IJ tunneled dialysis catheter in place at the left-sided subclavian area, ICD insertion site is without significant reaction. ABDOMEN: Benign. Bowel sounds positive. EXTREMITIES: Lower extremities with no edema, clubbing or cyanosis. DATABASE: The chest x-ray was reviewed, revealing a full enlarged cardiac silhouette, baseline atele ctasis. No evidence of pneumothorax, lead appeared to be in the same position as seen implant. Hemoglobin 10.9, white count 9.6 today. Platelet 167. Electrolytes with a BUN 41, creatinine 5.7. Sodium 131, potassium 5.9. ASSESSMENT: Mr. Garrison is a pleasant 87-year-old man with prior history of congestive heart fail ure, ischemic cardiomyopathy with progressive worsening left ventricular ejection fraction of 10-15% , also baseline conduction disease and intermittent complete AV block is seen on presentation. Signi ficant for hypokalemia. He underwent a biventricular ICD placement yesterday, which he tolerated wel l. Currently, the chest x-ray and the ICD check revealed no complications. The plan is routine post -ICD care including antibiotics for a week with clindamycin since penicillin allergy. Also follow up in 2 weeks for wound check requested. Thank you for allowing me to participate in the care of your patient.
--- NOTE | 2017-11-06 11:14 | PRG ---
DATE OF SERVICE: 11/06/2017 SERVICE: Pulmonary Medicine. INTERVAL HISTORY: The patient is doing fine from a respiratory standpoint. He denies any chest pain , nausea, vomiting or shortness of breath. He remains extraordinarily weak. The patient lives in an independent living facility. At this point, he may be too weak to continue living in that location for the time being. The is suggesting that he may be well served by going to a residential facility briefly to regain some lost strength. PHYSICAL EXAMINATION: VITAL SIGNS: Afebrile, pulse 63, blood pressure 103/49, respirations 18, saturation 100% on room air . GENERAL: The patient is awake, alert, in no apparent distress. LUNGS: Decent air entry. There are no crackles present. HEART: Normal rate, regular. ABDOMEN: Soft, nontender, nondistended. Bowel sounds are positive. MUSCULOSKELETAL: No cyanosis or clubbing. There is no pitting in the bilateral lower extremities. NEUROLOGIC: Grossly nonfocal. LABORATORY DATA: WBCs 9.6, hemoglobin 10.9, platelets 74,000. Creatinine 5.71, potassium 5.9, sodiu m 131. Basic metabolic profile is otherwise unremarkable. IMAGING: Chest x-ray demonstrates left subclavian AICD is in place. Vascular catheter remains in go od position. ASSESSMENT: 1. End-stage renal disease. 2. Third-degree heart block, status post AICD placement. 3. Acute systolic heart failure with 10% ejection fraction. 4. Severe mitral regurgitation. PLAN: Physical Therapy consultation will be placed. We will also involve case management to see whe ther or not the patient will be better served by initially going to a residential facility, [facility] Dr. Mena as the patient's family had a routine followup appointment scheduled this week which th ey are not going to get too. Pulmonary Critical Care will continue to follow while the patient remai ns in this location.
--- NOTE | 2017-11-06 12:47 | PDOC.PN ---
- Subjective Encounter Start Date: 11/06/17 Encounter Start Time: 12:00 Subjective: no chest pain or palp -: has dry cough but better today - Objective Resuscitation Status: Resuscitation Status FULL:Full Resuscitation MAR Reviewed: Yes Vital Signs & Weight: Vital Signs (12 hours) Temp Pulse Resp Pulse Ox 11/06/17 08:00 97.6 F 63 18 100 11/06/17 04:00 97.8 F Weight Admit Weight 170 lb Weight 169 lb 1.513 oz Most Recent Monitor Data Heart Rate from ECG 61 NIBP 97/50 NIBP BP-Mean 57 Respiration from ECG 24 SpO2 84 I&O: 11/05/17 11/06/17 11/07/17 06:59 06:59 06:59 Intake Total 480 100 120 Output Total 100 0 Balance 380 100 120 Result Diagrams: 11/06/17 04:22 11/06/17 04:22 Additional Labs: Accuchecks 11/06/17 11/06/17 11/05/17 12:13 06:45 21:07 POC Glucose 262 H 290 H 180 H Phys Exam - Physical Examination HEENT: PERRLA, moist MMs Neck: no JVD, supple Respiratory: no wheezing, no rales Cardiovascular: RRR, no significant murmur Gastrointestinal: soft, non-tender, positive bowel sounds Musculoskeletal: no edema, pulses present Neurological: non-focal, moves all 4 limbs Psychiatric: A&O x 3 Dx/Plan (1) Third degree AV block Code(s): I44.2 - ATRIOVENTRICULAR BLOCK, COMPLETE Status: Acute Comment: s/ p AICD with biventricular pacer (2) Moderate mitral regurgitation Code(s): I34.0 - NONRHEUMATIC MITRAL (VALVE) INSUFFICIENCY Status: Chronic (3) Acute combined systolic and diastolic congestive heart failure Code(s): I50.41 - ACUTE COMBINED SYSTOLIC AND DIASTOLIC (CONGESTIVE) HRT FAIL Status: Chronic Comment: ef is down to 10-15% now (4) ESRD (end stage renal disease) on dialysis Code(s): N18.6 - END STAGE RENAL DISEASE; Z99.2 - DEPENDENCE ON RENAL DIALYSIS Status: Acute Comment: initiating dialysis, today HD. silvia. (5) CAD (coronary artery disease) Code(s): I25.10 - ATHSCL HEART DISEASE OF [place] CORONARY ARTERY W/O ANG PCTRS Status: Chronic Qualifiers: Coronary Disease-Associated Artery/Lesion type: bypass graft [place] vs. transplanted heart: [place] heart Associated angina: without angina Qualified Code(s): I25.810 - Atherosclerosis of coronary artery bypass graft(s) without angina pectoris (6) DM2 (diabetes mellitus, type 2) Status: Chronic Qualifiers: Diabetes mellitus rn long term care insulin use: with rn long term care use Diabetes mellitus complication status: with kidney complications Diabetes mellitus complication detail: with chronic kidney disease Chronic kidney disease stage : on chronic dialysis Qualified Code(s): E11.22 - Type 2 diabetes mellitus with diabetic chronic kidney disease; N18.6 - End stage renal disease; Z99.2 - Dependence on renal dialysis; Z99.2 - Dependence on renal dialysis; Z99.2 - Dependence on renal dialysis; N18.6 - End stage renal disease; N18.6 - End stage renal disease; N18.6 - End stage renal disease; Z79.4 - jail (current ) use of insulin; Z79.4 - terminal clerk (current) use of insulin; Z79.4 - terminal clerk (current) use of insulin; Z79.4 - terminal clerk (current) use of insulin; Z99.2 - Dependence on renal dialysis (7) Hyperlipidemia Code(s): E78.5 - HYPERLIPIDEMIA, UNSPECIFIED Status: Chronic Qualifiers: Hyperlipidemia type: unspecified Qualified Code(s): E78.5 - Hyperlipidemia , unspecified (8) Hypertension Code(s): I10 - ESSENTIAL (PRIMARY) HYPERTENSION Status: Chronic Qualifiers: Hypertension type: essential hypertension Qualified Code(s): I10 - Essential (primary) hypertension - Plan for cath in am -: one dose kayexalate as pt is scheduled for HD in am after cath I believe -: asp, lipitor, clinda for 1 week post aicd -: PT to mobilize as tolerated -: d/w and patient at bedside * . Review of Systems - Medications/Allergies Allergies/Adverse Reactions: Allergies Allergy/AdvReac Type Severity Reaction Status Date / Time Sulfa (Sulfonamide Allergy Unknown Verified 11/02/17 06:23 Antibiotics) amoxicillin Allergy Hives Verified 11/02/17 06:23 Medications: Current Medications Acetaminophen (Tylenol) 1,000 mg PO Q6H PRN PRN Reason: Headache/Fever or Mild Pain Aspirin (Aspirin Chewable) 81 mg PO DAILY [facility] Last Admin: 11/06/17 08:19 Dose: 81 mg Atorvastatin Calcium (Lipitor) 40 mg PO HS [facility] Last Admin: 11/05/17 21:07 Dose: 40 mg Cefazolin Sodium (Ancef) 2 gm SLOW IVP WILLCALL [facility] Clindamycin HCl (Cleocin) 300 mg PO TID [facility] Stop: 11/12/17 15:01 Last Admin: 11/06/17 08:19 Dose: 300 mg Dextrose/Water (Dextrose 50%) 25 gm SLOW IVP PRN PRN PRN Reason: Hypoglycemia Famotidine (Pepcid) 20 mg PO DAILY [facility] Last Admin: 11/06/17 08:19 Dose: 20 mg Glucagon (Glucagon) 1 mg IM PRN PRN PRN Reason: Hypoglycemia Hydralazine HCl (Apresoline) 10 mg SLOW IVP Q4H PRN PRN Reason: Systolic BP > 180 Dextrose/Water (D5w) 1,000 mls @ 0 mls/hr IV .Q0M PRN; As Directed PRN Reason: Hypoglycemia Epinephrine 1 mg/Miscellaneous Medication 1 each/ Dextrose/Water 251 mls @ 0 mls/hr IVPB INF PRN; Protocol; Titrate PRN Reason: SUSTAINED BRADYCARDIA Insulin Human Lispro (Humalog) 0 units SC .MILD SLIDING SCALE PRN PRN Reason: Mild Correctional Scale Last Admin: 11/06/17 12:15 Dose: 4 unit Insulin Human Lispro (Humalog) 0 units SC .BEDTIME SLIDING SC PRN PRN Reason: Bedtime Correctional Scale Last Admin: 11/03/17 21:20 Dose: 4 unit Levothyroxine Sodium (Synthroid) 112 mcg PO 0600 [facility] Last Admin: 11/06/17 08:19 Dose: 112 mcg Ondansetron HCl (Zofran) 4 mg IVP Q6H PRN PRN Reason: Nausea/Vomiting Sodium Polystyrene Sulfonate (Kayexelate Oral Susp 15 Gm/60 Ml) 30 gm PO NOW [facility] Stop: 11/06/17 14:00 Throat Lozenges (Cepastat Lozenges) 1 richy PO Q2H PRN PRN Reason: Sore Throat Last Admin: 11/05/17 10:41 Dose: 1 richy
[2017-11-06] MEDS ORDERED: Sodium Chloride 0.65% Nasal 44 ML BOT EA NARE PRN (15:42)
[2017-11-06] MEDS: Cepastat Lozenges 1 LOZ PO PRN (16:01)
--- NOTE | 2017-11-06 16:47 | PDOC.CTH ---
Cardiology Progress Note - Subjective He had his AICD placed and was confused up to this morning after coming out of anesthesia so LHC could be done this morning. - Objective Vital Signs Temp Pulse Pulse Pulse Resp BP BP 11/06/17 16:00 98.6 F 11/06/17 13:40 83 66 101/55 L 99/55 L 11/06/17 08:00 97.6 F 63 18 Pulse Ox Pulse Ox Pulse Ox 11/06/17 16:00 11/06/17 13:40 100 94 L 11/06/17 08:00 100 Admit Weight 170 lb Weight 169 lb 1.513 oz 11/05/17 11/06/17 11/07/17 06:59 06:59 06:59 Intake Total 480 100 170 Output Total 100 0 Balance 380 100 170 - Physical Examination General/Neuro: NAD Neck: no JVD present Lungs: CTA, unlabored respirations Heart: RRR Abdomen: NT/ND Extremities: other: (no edema) - Telemetry Telemetry Rhythm: NSR - Labs Result Diagrams: 11/06/17 04:22 11/06/17 04:22 Troponin/CKMB CK-MB (CK-2) 2.6 ng/mL (0-6.6) 11/02/17 11:08 Troponin I 0.217 ng/mL (< 0.028) H 11/02/17 11:08 - Assessment/Plan 1. Syncope 2. Third degree AV Block, s/p Bi V AICD 3. Acute on chronic systolic heart failure 4. CAD, s/p CABG in 1998 5. Ischemic CM EF at 10-15% 6. ESRD on HD PLAN: - LHC to be done tomorrow morning.
[2017-11-06] MEDS ORDERED: Communication Order-Pharmacy FS SCH (17:00)
[2017-11-06] MEDS: Atorvastatin Calcium 20 MG TAB PO SCH (21:11)
[2017-11-07 05:25] LABS: INR-International Normal Ratio 1.9; PTT 36.4 SEC (22.9-36.1); Prothrombin Time 22.6 SEC (12.0-14.7)
[2017-11-07 05:34] LABS: Anion Gap 22 mmol/L (10-20); BUN (Urea Nitrogen) 59 mg/dL (8.4-25.7); Calc. Creatinine Clearance 8 mL/min (70-130); Calcium 8.5 mg/dL (7.8-10.44); Carbon Dioxide 23 mmol/L (23-31); Chloride 89 mmol/L (98-107); Estimated GFR-MDRD 8; Glucose 279 mg/dL (83-110); Potassium 6.3 mmol/L (3.5-5.1); Sodium 128 mmol/L (136-145)
[2017-11-07 05:59] LABS: Hemoglobin 11.8 g/dL (14.0-18.0); Lymphocytes 16 % (21-51); MDiff Complete? YES; Mean Corpuscular HGB CONC 31.9 g/dL (32.0-36.0); Mean Corpuscular Hemoglobin 31.5 pg (27.0-31.0); Mean Corpuscular Volume 98.8 fl (80.0-94.0); Metamyelocyte 1 % (0-0); Monocytes 13 % (0-10); Neutrophil 70 % (42-75); Nucleated RBC 1 % (0); PLT Morphology Comment Appears Adequate; Platelet Count 172 thou/uL (130-400); RBC Distribution Width 16.4 % (11.5-14.5); Red Blood Cell (RBC) Count 3.73 mill/uL (4.70-6.10); White Blood Cell (WBC) Count 10.3 thou/uL (4.8-10.8)
[2017-11-07] MEDS: Levothyroxine Sodium 112 MCG TAB PO SCH (06:40)
[2017-11-07] MEDS: Clindamycin 150 MG CAP PO SCH ×3 (08:22→22:08)
[2017-11-07] MEDS: Famotidine 20 MG TAB PO SCH (08:23)
[2017-11-07] MEDS: HumaLOG 300 UNITS/3 ML VIAL SC PRN ×2 (08:30→23:42)
[2017-11-07] MEDS ORDERED: Heparin 10,000 UNITS/ 10 ML VIAL ONE (10:00)
[2017-11-07] MEDS ORDERED: Sterile Water 10 ML VIAL IVP SCH (11:30)
[2017-11-07] MEDS ORDERED: Activase 2 MG VIAL CATH SCH (11:30)
--- NOTE | 2017-11-07 13:00 | PRG ---
DATE OF SERVICE: 11/07/2017 SERVICE: Pulmonary Medicine INTERVAL HISTORY: The patient is doing fine from a respiratory standpoint. He is breathing comforta kelin. He has no complaints of chest discomfort, nausea, vomiting, fevers or chills. He is on dialysi s this morning. Otherwise, there has been no interval change to his condition. He continues to have a dry cough. We gave him a throat lozenge. He swallowed it. As such, these are going to be discon tinued altogether. We will put him on Tessalon Perles as he does not have any productivity with his cough and does not have significant rhonchorous sounds. PHYSICAL EXAMINATION: VITAL SIGNS: Afebrile, pulse 73, blood pressure 101/50, respirations 18, saturation 100% on 2 liters nasal cannula. GENERAL: The patient is awake, alert, in no apparent distress. LUNGS: Decent air entry. Minimal crackles are present dependently. There is no prolonged expirator y phase or wheezing. HEART: Normal rate, regular. ABDOMEN: Soft, nontender, nondistended. Bowel sounds are positive. MUSCULOSKELETAL: No cyanosis or clubbing. There is no pitting in the bilateral lower extremities. NEUROLOGIC: Grossly nonfocal. LABORATORY: WBC 10.3, hemoglobin 11.8, platelets 172,000. INR 1.9. Creatinine 6.95, Potassium 6.3. Sodium 128. Basic metabolic profile is otherwise essentially unremarkable. ASSESSMENT: 1. End-stage renal disease. 2. Third degree heart block, status post AICD placement. 3. Acute systolic heart failure with 10% ejection fraction. 4. Severe mitral regurgitation. PLAN: The patient remains stable for transition to the CU. I will discontinue throat lozenges and start Tessalon Perles to see if this can suppress some of his cough activity. He remains stable for transition to the telemetry unit. We wean away the oxygen as tolerated.
--- NOTE | 2017-11-07 14:02 | PDOC.PN ---
- Subjective Encounter Start Date: 11/07/17 Encounter Start Time: 11:00 Subjective: is getting HD now -: no sob or chest pain or palp -: is resting comfortably on HD - Objective Resuscitation Status: Resuscitation Status FULL:Full Resuscitation MAR Reviewed: Yes Vital Signs & Weight: Vital Signs (12 hours) Temp Pulse Resp Pulse Ox 11/07/17 12:00 97.4 F L 11/07/17 07:59 97.9 F 63 20 99 Weight Admit Weight 170 lb Weight 175 lb 11.335 oz Most Recent Monitor Data Heart Rate from ECG 70 NIBP 93/41 NIBP BP-Mean 54 Respiration from ECG 21 SpO2 100 I&O: 11/06/17 11/07/17 11/08/17 06:59 06:59 06:59 Intake Total 100 340 170 Output Total 0 Balance 100 340 170 Result Diagrams: 11/07/17 05:10 11/07/17 05:10 Additional Labs: Accuchecks 11/07/17 11/06/17 11/06/17 12:22 21:11 16:05 POC Glucose 116 H 229 H 284 H Phys Exam - Physical Examination HEENT: PERRLA, moist MMs Neck: no JVD, supple Respiratory: no wheezing, no rales Cardiovascular: RRR, no significant murmur Gastrointestinal: soft, non-tender, positive bowel sounds Musculoskeletal: no edema, pulses present Neurological: non-focal, moves all 4 limbs Psychiatric: normal affect, A&O x 3 Dx/Plan (1) Third degree AV block Code(s): I44.2 - ATRIOVENTRICULAR BLOCK, COMPLETE Status: Acute Comment: s/ p AICD with biventricular pacer (2) Moderate mitral regurgitation Code(s): I34.0 - NONRHEUMATIC MITRAL (VALVE) INSUFFICIENCY Status: Chronic (3) Acute combined systolic and diastolic congestive heart failure Code(s): I50.41 - ACUTE COMBINED SYSTOLIC AND DIASTOLIC (CONGESTIVE) HRT FAIL Status: Chronic Comment: ef is down to 10-15% now (4) ESRD (end stage renal disease) on dialysis Code(s): N18.6 - END STAGE RENAL DISEASE; Z99.2 - DEPENDENCE ON RENAL DIALYSIS Status: Acute (5) CAD (coronary artery disease) Code(s): I25.10 - ATHSCL HEART DISEASE OF [place] CORONARY ARTERY W/O ANG PCTRS Status: Chronic Qualifiers: Coronary Disease-Associated Artery/Lesion type: bypass graft [place] vs. transplanted heart: [place] heart Associated angina: without angina Qualified Code(s): I25.810 - Atherosclerosis of coronary artery bypass graft(s) without angina pectoris (6) DM2 (diabetes mellitus, type 2) Status: Chronic Qualifiers: Diabetes mellitus jail insulin use: with moth exterminator use Diabetes mellitus complication status: with kidney complications Diabetes mellitus complication detail: with chronic kidney disease Chronic kidney disease stage : on chronic dialysis Qualified Code(s): E11.22 - Type 2 diabetes mellitus with diabetic chronic kidney disease; N18.6 - End stage renal disease; Z99.2 - Dependence on renal dialysis; Z99.2 - Dependence on renal dialysis; Z99.2 - Dependence on renal dialysis; N18.6 - End stage renal disease; N18.6 - End stage renal disease; N18.6 - End stage renal disease; Z79.4 - alf (current ) use of insulin; Z79.4 - moth exterminator (current) use of insulin; Z79.4 - alf (current) use of insulin; Z79.4 - moth exterminator (current) use of insulin; Z99.2 - Dependence on renal dialysis (7) Hyperlipidemia Code(s): E78.5 - HYPERLIPIDEMIA, UNSPECIFIED Status: Chronic Qualifiers: Hyperlipidemia type: unspecified Qualified Code(s): E78.5 - Hyperlipidemia , unspecified (8) Hypertension Code(s): I10 - ESSENTIAL (PRIMARY) HYPERTENSION Status: Chronic Qualifiers: Hypertension type: essential hypertension Qualified Code(s): I10 - Essential (primary) hypertension - Plan for cath in am due to high inr today, ?likely from cathflo used to open his -: clogged HD catheter or from aicd placement with anticoagulation use -: electrolyte abnormalities will likely get corrected with HD -: on asp, lipitor and synthroid with tessalon pearls prn -: His cough is better than before this am * . Review of Systems - Medications/Allergies Allergies/Adverse Reactions: Allergies Allergy/AdvReac Type Severity Reaction Status Date / Time Sulfa (Sulfonamide Allergy Unknown Verified 11/02/17 06:23 Antibiotics) amoxicillin Allergy Hives Verified 11/02/17 06:23 Medications: Current Medications Acetaminophen (Tylenol) 1,000 mg PO Q6H PRN PRN Reason: Headache/Fever or Mild Pain Alteplase, Recombinant (Cathflo) 4 mg CATH NOW [facility] Stop: 11/07/17 21:00 Last Admin: 11/07/17 12:23 Dose: 4 mg Aspirin (Aspirin Chewable) 81 mg PO DAILY [facility] Last Admin: 11/07/17 08:23 Dose: 81 mg Atorvastatin Calcium (Lipitor) 40 mg PO HS [facility] Last Admin: 11/06/17 21:11 Dose: 40 mg Benzonatate (Tessalon) 100 mg PO TID [facility] Cefazolin Sodium (Ancef) 2 gm SLOW IVP WILLCALL [facility] Clindamycin HCl (Cleocin) 300 mg PO TID [facility] Stop: 11/12/17 15:01 Last Admin: 11/07/17 08:22 Dose: 300 mg Dextrose/Water (Dextrose 50%) 25 gm SLOW IVP PRN PRN PRN Reason: Hypoglycemia Famotidine (Pepcid) 20 mg PO DAILY [facility] Last Admin: 11/07/17 08:23 Dose: 20 mg Glucagon (Glucagon) 1 mg IM PRN PRN PRN Reason: Hypoglycemia Hydralazine HCl (Apresoline) 10 mg SLOW IVP Q4H PRN PRN Reason: Systolic BP > 180 Dextrose/Water (D5w) 1,000 mls @ 0 mls/hr IV .Q0M PRN; As Directed PRN Reason: Hypoglycemia Insulin Human Lispro (Humalog) 0 units SC .MILD SLIDING SCALE PRN PRN Reason: Mild Correctional Scale Last Admin: 11/07/17 08:30 Dose: 4 unit Insulin Human Lispro (Humalog) 0 units SC .BEDTIME SLIDING SC PRN PRN Reason: Bedtime Correctional Scale Levothyroxine Sodium (Synthroid) 112 mcg PO 0600 [facility] Last Admin: 11/07/17 06:40 Dose: 112 mcg Ondansetron HCl (Zofran) 4 mg IVP Q6H PRN PRN Reason: Nausea/Vomiting Sodium Chloride ([place] Nasal [place] 0.65%) 0 ml EA NARE PRN PRN PRN Reason: Nasal Dryness Sodium Chloride (Flush - Normal Saline) 10 ml IVF PRN PRN PRN Reason: Saline Flush Sterile Water (Water For Injection) 20 ml IVP NOW [facility] Stop: 11/07/17 21:00 Last Admin: 11/07/17 12:24 Dose: 20 ml
[2017-11-07] MEDS: Benzonatate 100 MG CAP PO SCH ×2 (14:17→22:09)
--- NOTE | 2017-11-07 17:06 | HP ---
DATE OF EVALUATION: 11/06/2017 Mr. Garrison is admitted for respiratory problems. Dr. George has asked me to see him regarding h is dialysis access. The patient had a left Ayleen fistula placed on 09/11/2017. Dialysis Center beg an attempts at accessing this, but the patient experienced a hematoma of proximal forearm. Exam reve als the fistula has a good thrill and bruit. Would recommend that dialysis use his dialysis catheter and rest the left forearm for about a week and a half and then reattempt cannulation again. At this point, I will see him as needed this ecchymosis, hematoma proximal left formal will resolve with taylor e and warm compresses can be used. Please call if needed.
--- NOTE | 2017-11-07 19:01 | PDOC.CTH ---
Cardiology Progress Note - Subjective LHC was not done as his INR is climbing at 1.9 now. He is doing well otherwise. He denies any chest pain, tightness, pressure. He is undergoing dialysis at this time. - Objective Vital Signs Temp Pulse Pulse Pulse Resp BP BP 11/07/17 15:25 98.4 F 71 18 11/07/17 14:21 73 72 113/46 L 104/49 L 11/07/17 12:00 97.4 F L 11/07/17 07:59 97.9 F 63 20 BP Pulse Ox Pulse Ox Pulse Ox 11/07/17 15:25 104/51 L 98 11/07/17 14:21 97 96 11/07/17 12:00 11/07/17 07:59 99 Admit Weight 170 lb Weight 175 lb 11.335 oz 11/06/17 11/07/17 11/08/17 06:59 06:59 06:59 Intake Total 100 340 170 Output Total 0 Balance 100 340 170 - Physical Examination General/Neuro: alert & oriented x3, NAD Neck: no JVD present Lungs: unlabored respirations Heart: RRR Abdomen: NT/ND Extremities: other: (no edema) - Telemetry Telemetry Rhythm: NSR - Labs Result Diagrams: 11/07/17 05:10 11/07/17 05:10 Troponin/CKMB CK-MB (CK-2) 2.6 ng/mL (0-6.6) 11/02/17 11:08 Troponin I 0.217 ng/mL (< 0.028) H 11/02/17 11:08 - Assessment/Plan 1. Syncope 2. Third degree AV Block, s/p Bi V AICD 3. Acute on chronic systolic heart failure 4. CAD, s/p CABG in 1998 5. Ischemic CM EF at 10-15% 6. ESRD on HD PLAN: - Will recheck INR tomorrow and if better after dialysis will plan to proceed with LHC.
[2017-11-07] MEDS: Atorvastatin Calcium 20 MG TAB PO SCH (22:09)
[2017-11-08 05:21] LABS: INR-International Normal Ratio 1.9; Prothrombin Time 22.1 SEC (12.0-14.7)
[2017-11-08 05:33] LABS: Anion Gap 16 mmol/L (10-20); BUN (Urea Nitrogen) 37 mg/dL (8.4-25.7); Calc. Creatinine Clearance 12 mL/min (70-130); Calcium 8.3 mg/dL (7.8-10.44); Carbon Dioxide 26 mmol/L (23-31); Chloride 94 mmol/L (98-107); Estimated GFR-MDRD 11; Glucose 232 mg/dL (83-110); Potassium 4.8 mmol/L (3.5-5.1); Sodium 131 mmol/L (136-145)
[2017-11-08 05:38] LABS: Acanthocytes SLIGHT = 1-5 cells (100X) (None Seen); Anisocytosis MODERATE=16-30 cells (100X) (0-5/hpf); Burr Cells MODERATE= 6-15 cells (100X) (0-1/hpf); Eosinophils 1 % (0-10); Hemoglobin 10.8 g/dL (14.0-18.0); Lymphocytes 14 % (21-51); MDiff Complete? YES; Macrocytosis SLIGHT = 6-15 cells (100X) (0-5/hpf); Mean Corpuscular HGB CONC 31.4 g/dL (32.0-36.0); Mean Corpuscular Hemoglobin 31.9 pg (27.0-31.0); Mean Platelet Volume 10.3 fL (7.4-10.4); Monocytes 20 % (0-10); Neutrophil 65 % (42-75); Platelet Count 155 thou/uL (130-400); RBC Distribution Width 17.1 % (11.5-14.5); Red Blood Cell (RBC) Count 3.39 mill/uL (4.70-6.10); Schistocytes SLIGHT = 2-5 cells (100X) (0-1/hpf); White Blood Cell (WBC) Count 8.5 thou/uL (4.8-10.8)
[2017-11-08 09:05] LABS: INR-International Normal Ratio 1.8; Prothrombin Time 21.2 SEC (12.0-14.7)
[2017-11-08] MEDS ORDERED: Lidocaine 1% (PF) 30 ML VIAL ONE (09:25)
[2017-11-08] MEDS ORDERED: Midazolam HCl 2 mg/2 ml Vial ONE (11:12)
[2017-11-08] MEDS ORDERED: Norepinephrine 4 MG/4 ML VIAL ONE ×2 (11:31→11:32)
[2017-11-08] MEDS ORDERED: Succinylcholine Chloride 20 MG/ML 10 ml SYRINGE FS ONE (11:31)
[2017-11-08 12:05] LABS: Hemoglobin 11.2 g/dL (14.0-18.0); Mean Corpuscular HGB CONC 32.2 g/dL (32.0-36.0); Mean Corpuscular Hemoglobin 32.4 pg (27.0-31.0); Mean Platelet Volume 10.5 fL (7.4-10.4); Platelet Count 157 thou/uL (130-400); RBC Distribution Width 16.8 % (11.5-14.5); Red Blood Cell (RBC) Count 3.46 mill/uL (4.70-6.10); White Blood Cell (WBC) Count 10.1 thou/uL (4.8-10.8)
[2017-11-08 12:07] LABS: INR-International Normal Ratio 1.8; PTT 34.9 SEC (22.9-36.1)
[2017-11-08 12:13] LABS: Anion Gap 21 mmol/L (10-20); BUN (Urea Nitrogen) 43 mg/dL (8.4-25.7); Calc. Creatinine Clearance 11 mL/min (70-130); Carbon Dioxide 19 mmol/L (23-31); Chloride 96 mmol/L (98-107); Estimated GFR-MDRD 10; Potassium 5.7 mmol/L (3.5-5.1); Sodium 130 mmol/L (136-145)
[2017-11-08 12:14] LABS: ALT (SGPT) 434 U/L (8-55); AST (SGOT) 471 U/L (5-34); Albumin 2.9 g/dL (3.4-4.8); Alkaline Phosphatase 714 U/L (40-150); Bilirubin, Total 1.7 mg/dL (0.2-1.2); Calcium 7.9 mg/dL (7.8-10.44); Globulin 2.6 g/dL (2.4-3.5); Glucose 265 mg/dL (83-110); Protein, Total 5.5 g/dL (5.8-8.1)
--- NOTE | 2017-11-08 12:17 | RAD ---
SUPINE PORTABLE CHEST 1 VIEW: Date: 11/08/17 HISTORY: 87-year-old male with history of tube placement. FINDINGS: An endotracheal tube is noted in place with the tip approximately 1.0 cm from the kyle. Right dual lumen venous access catheter. Left ICD. Patchy interstitial and alveolar parenchymal changes bilatera lly. Bilateral costophrenic angle blunting. IMPRESSION: Evidence for bilateral interstitial and alveolar parenchymal changes with some costophrenic angle gilmar nting, raising concern for developing pulmonary edema and/or some component of pneumonia. Minimal car diomegaly. Endotracheal tube in place with the tip approximately 1.0 cm from the level of the kyle. POS: [facility]
[2017-11-08 12:18] LABS: CKMB 2.6 ng/mL (0-6.6)
[2017-11-08 12:24] LABS: Actual Bicarbonate (HCO3a) 17.1 mEq/L (22-26); Base Excess (BEa) -6.4 mEq/L (0 (+/-) 2.5); CO2 Tension 27.8 mmHg (35.0-45.0); O2 Tension (PaO2) 99.1 mmHg (80.0-100.0); pH, Arterial 7.41 (7.35-7.45)
[2017-11-08 12:25] LABS: Hematocrit-ABG 37.5 % (42.0-52.0); Hemoglobin (Hb) 10.3 g/dL (14.0-18.0); Puncture Site ALINE
[2017-11-08 12:25] LABS: Acanthocytes SLIGHT = 1-5 cells (100X) (None Seen); Anisocytosis SLIGHT = 6-15 cells (100X) (0-5/hpf); Crenated RBC SLIGHT = 1-5 cells (100X) (None Seen); Hypochromia SLIGHT = 6-15 cells (100X) (0-5/hpf); Lymphocytes 32 % (21-51); MDiff Complete? YES; Monocytes 3 % (0-10); Neutrophil 63 % (42-75); PLT Morphology Comment Appears Adequate; Polychromasia SLIGHT = 2-3 cells (100X) (0-2/hpf); Reactive Lymphocytes 2 % (0-10); Troponin I 0.427 ng/mL (< 0.028)
[2017-11-08] MEDS: Levothyroxine Sodium 112 MCG TAB PO SCH (12:50)
[2017-11-08] MEDS: Benzonatate 100 MG CAP PO SCH ×3 (12:50→21:12)
[2017-11-08] MEDS: Clindamycin 150 MG CAP PO SCH ×3 (12:50→21:08)
[2017-11-08] MEDS: Famotidine 20 MG TAB PO SCH (12:51)
--- NOTE | 2017-11-08 13:11 | CT ---
CT HEAD NONCONTRAST: HISTORY: Altered mental status. FINDINGS: No comparison. There is no evidence of acute intracranial hemorrhage or infarct. Diffuse cortical a trophy and chronic ischemic small-vessel disease are apparent. Old lacunar infarcts are evident at t he left basal ganglia and thalamus. IMPRESSION: Evidence of chronic ischemic small vessel disease. No acute intracranial abnormalities are demonstra emily on noncontrast CT head. POS: [facility]
[2017-11-08] MEDS ORDERED: Iopamidol 370 76% 100 ML VIAL ONE (13:27)
--- NOTE | 2017-11-08 13:28 | PRG ---
DATE OF SERVICE: 11/08/2017 He returned from the cardiac cath. I spoke to his oven press tender, Dr. Banuelos who stated that post-cath eterization he became lethargic, arousable, was having symptoms of what sounds like a stroke. He was given a total of only 1 mg of Versed during the procedure. He is complaining of difficulty breathin g, was intubated by Anesthesia. He was transferred to the ICU, intubated on the vent. Shortly after he arrived, he became more responsive, agitated, coughing. I personally came to see the patient and reviewed his chest x-ray which showed findings consistent with CHF. He had emergency CT head, CT neck which was also phoned to Cardiology, which was apparently negative. PHYSICAL EXAMINATION: VITAL SIGNS: His sats are 95% on the vent. Pulse 80, blood pressure 130/80. EXTREMITIES: He is moving all 4 extremities. CHEST: Bilateral rhonchi and crackles. CARDIAC: Normal S1-S2. No gallops. ABDOMEN: Soft. No masses. LABORATORY: White count is 10,000, H&H is 11 and 34, platelet count is 57, 63 segs, his INR is 1.8. Creatinine is 5.5, BUN 43. Elevated AST and ALT at 471 and 435, alkaline phosphatase 115. IMPRESSION: 1. Metabolic encephalopathy, probably secondary to medication complicated by his multiple medical is sues. 2. Abnormal liver function. Passive congestion. 3. Renal failure. 4. Congestive heart failure. Ejection fraction is apparently 10-20%. 5. Cath is negative. 6. Recent automatic implantable cardioverter/defibrillator. PLAN: He will be weaned and extubated and neb treatments have been initiated. Avoid sedation. Cont inue home medication. One-half hour critical care time. I will follow while in the ICU.
--- NOTE | 2017-11-08 13:35 | CT ---
CT ARTERIOGRAM NECK WITH IV CONTRAST AND 3D MIP IMAGING CT ARTERIOGRAM HEAD WITH IV CONTRAST AND 3D MIP IMAGING CT BRAIN WITH IV CONTRAST CT PERFUSION IMAGING BRAIN: HISTORY: Altered mental status. FINDINGS: Images including the superior aspect of the chest show bilateral pleural fluid and atelectasis. Ther e is calcification within the arterial structures. Gas surrounds the left upper chest pacer pack sug gesting recent placement. Endotracheal catheter extends to just above the kyle. There is normal branching of the great vessels at the aortic arch with good flow into each carotid ar reginald and each vertebral artery. Plaque is present with less than 50% stenosis of the proximal aspect of the left carotid artery. At each carotid bifurcation, there is calcification and noncalcified plaque without significant steno sis. Some irregularity of the distal aspect of the left vertebral artery is present suggesting degre e of stenosis. It is somewhat tortuous. Good flow is demonstrated throughout each internal carotid system and the vertebrobasilar system. No abnormal areas of contrast enhancement are apparent intrac ranially. Perfusion images show symmetric flow of contrast and blood. IMPRESSION: 1. No focal intracranial perfusion defects are demonstrated. 2. Bilateral pleural fluid. Findings were called to Dr. Stapleton at 1204 hours. CODE CR POS: [facility]
[2017-11-08] MEDS ORDERED: ISOVUE-370 76%-LOCM 1 ML ONE (14:29)
[2017-11-08] MEDS: HumaLOG 300 UNITS/3 ML VIAL SC PRN ×3 (17:08→21:14)
[2017-11-08] MEDS: Atorvastatin Calcium 20 MG TAB PO SCH (21:11)
--- NOTE | 2017-11-09 00:28 | PDOC.PN ---
- Subjective Encounter Start Date: 11/08/17 Encounter Start Time: 15:00 Subjective: nsg notes rev, jamshid ovn, pt napping easily woken, no nc/o - Objective Resuscitation Status: Resuscitation Status FULL:Full Resuscitation Vital Signs & Weight: Vital Signs (12 hours) Temp Pulse Resp Pulse Ox 11/09/17 00:14 70 16 95 11/09/17 00:00 98.1 F 11/08/17 20:00 98.0 F 79 19 93 L 11/08/17 19:00 98.0 F 11/08/17 18:29 77 23 H 94 L 11/08/17 16:00 98.1 F 11/08/17 12:37 69 22 H 98 11/08/17 12:30 98 F 72 18 98 Weight Admit Weight 170 lb Weight 171 lb 4.787 oz Most Recent Monitor Data Heart Rate from ECG 70 NIBP 87/44 NIBP BP-Mean 54 Respiration from ECG 21 SpO2 91 I&O: 11/07/17 11/08/17 11/09/17 06:59 06:59 06:59 Intake Total 340 190 880 Output Total 0 1 0 Balance 340 189 880 Result Diagrams: 11/08/17 11:49 11/08/17 11:49 Additional Labs: Accuchecks 11/08/17 11/08/17 11/08/17 20:49 17:06 10:25 POC Glucose 236 H 242 H 220 H 11/08/17 06:34 POC Glucose 257 H Phys Exam - Physical Examination Constitutional: NAD pale, lying in hospital bed HEENT: PERRLA, sclera anicteric Respiratory: no wheezing, no rales, no rhonchi, clear to auscultation bilateral Neurological: moves all 4 limbs Psychiatric: normal affect Dx/Plan - Plan * 87M hx CABG, ESRD who initially presented with a CC of chest pain * * chest pain, resolved * likely 2/2 heart block 3rd deg heart break * s/p AICD * LHC * apprec card c/s ESRD * apprec nephro c/s * continue with HD as per nephrology hx CABG * see above diet: cardiac activity: as suzanne dvt ppx Review of Systems - Medications/Allergies Allergies/Adverse Reactions: Allergies Allergy/AdvReac Type Severity Reaction Status Date / Time Sulfa (Sulfonamide Allergy Unknown Verified 11/02/17 06:23 Antibiotics) amoxicillin Allergy Hives Verified 11/02/17 06:23 Medications: Current Medications Acetaminophen (Tylenol) 1,000 mg PO Q6H PRN PRN Reason: Headache/Fever or Mild Pain Albuterol/Ipratropium (Duoneb) 3 ml NEB [id number] [facility] Last Admin: 11/09/17 00:14 Dose: 3 ml Aspirin (Aspirin Chewable) 81 mg PO DAILY [facility] Last Admin: 11/08/17 12:50 Dose: Not Given Atorvastatin Calcium (Lipitor) 40 mg PO HS [facility] Last Admin: 11/08/17 21:11 Dose: 40 mg Benzonatate (Tessalon) 100 mg PO TID [facility] Last Admin: 11/08/17 21:12 Dose: 100 mg Cefazolin Sodium (Ancef) 2 gm SLOW IVP WILLCALL [facility] Clindamycin HCl (Cleocin) 300 mg PO TID [facility] Stop: 11/12/17 15:01 Last Admin: 11/08/17 21:08 Dose: 300 mg Dextrose/Water (Dextrose 50%) 25 gm SLOW IVP PRN PRN PRN Reason: Hypoglycemia Famotidine (Pepcid) 20 mg PO DAILY [facility] Last Admin: 11/08/17 12:51 Dose: Not Given Glucagon (Glucagon) 1 mg IM PRN PRN PRN Reason: Hypoglycemia Hydralazine HCl (Apresoline) 10 mg SLOW IVP Q4H PRN PRN Reason: Systolic BP > 180 Dextrose/Water (D5w) 1,000 mls @ 0 mls/hr IV .Q0M PRN; As Directed PRN Reason: Hypoglycemia Insulin Human Lispro (Humalog) 0 units SC .MILD SLIDING SCALE PRN PRN Reason: Mild Correctional Scale Last Admin: 11/08/17 21:13 Dose: 3 unit Insulin Human Lispro (Humalog) 0 units SC .BEDTIME SLIDING SC PRN PRN Reason: Bedtime Correctional Scale Last Admin: 11/08/17 21:14 Dose: 2 unit Levothyroxine Sodium (Synthroid) 112 mcg PO 0600 [facility] Last Admin: 11/08/17 12:50 Dose: Not Given Ondansetron HCl (Zofran) 4 mg IVP Q6H PRN PRN Reason: Nausea/Vomiting Sodium Chloride ([place] Nasal [place] 0.65%) 0 ml EA NARE PRN PRN PRN Reason: Nasal Dryness Sodium Chloride (Flush - Normal Saline) 10 ml IVF PRN PRN PRN Reason: Saline Flush
[2017-11-09 05:28] LABS: Anion Gap 21 mmol/L (10-20); BUN (Urea Nitrogen) 55 mg/dL (8.4-25.7); Calc. Creatinine Clearance 9 mL/min (70-130); Calcium 8.4 mg/dL (7.8-10.44); Carbon Dioxide 22 mmol/L (23-31); Chloride 92 mmol/L (98-107); Estimated GFR-MDRD 8; Glucose 178 mg/dL (83-110); Potassium 5.4 mmol/L (3.5-5.1); Sodium 130 mmol/L (136-145)
[2017-11-09 05:42] LABS: Band 2 % (5-11); Burr Cells SLIGHT = 2-5 cells (100X) (0-1/hpf); Hemoglobin 11.1 g/dL (14.0-18.0); Hypochromia SLIGHT = 6-15 cells (100X) (0-5/hpf); Lymphocytes 12 % (21-51); MDiff Complete? YES; Mean Corpuscular HGB CONC 31.3 g/dL (32.0-36.0); Mean Corpuscular Hemoglobin 31.8 pg (27.0-31.0); Mean Platelet Volume 10.7 fL (7.4-10.4); Monocytes 20 % (0-10); Neutrophil 66 % (42-75); Nucleated RBC 1 % (0); PLT Morphology Comment Appears Adequate; Platelet Count 155 thou/uL (130-400); RBC Distribution Width 17.1 % (11.5-14.5); Red Blood Cell (RBC) Count 3.49 mill/uL (4.70-6.10); White Blood Cell (WBC) Count 10.1 thou/uL (4.8-10.8)
[2017-11-09] MEDS: Levothyroxine Sodium 112 MCG TAB PO SCH (06:21)
[2017-11-09] MEDS: HumaLOG 300 UNITS/3 ML VIAL SC PRN ×4 (06:22→21:38)
--- NOTE | 2017-11-09 08:15 | PRG ---
DATE OF SERVICE: 11/09/2017 SUBJECTIVE: Awake, alert, and responsive. Denies any difficulty breathing. OBJECTIVE: VITAL SIGNS: Sats are 100%, blood pressure is 112/57, temperature 96, respiration 18. CHEST: No wheezing or crackles. CARDIAC: Normal S1, S2, no gallops. ABDOMEN: Soft. NEUROLOGIC: Awake, alert and responsive. LABORATORY DATA: White count 10,000, H&H is 11 and 35, platelet count normal. Creatinine is 6.42. IMPRESSION: 1. Congestive heart failure, renal failure, coronary artery disease, cardiomyopathy status post resp iratory failure, improved. 2. Renal failure for dialysis today. Status post catheterization. PLAN: Patient in post-dialysis care. Transfer out of the ICU. Otherwise, supportive care, PT. We will follow.
[2017-11-09] MEDS: Clindamycin 150 MG CAP PO SCH ×3 (09:06→21:34)
[2017-11-09] MEDS: Famotidine 20 MG TAB PO SCH (09:06)
[2017-11-09] MEDS: Benzonatate 100 MG CAP PO SCH ×3 (09:06→21:34)
--- NOTE | 2017-11-09 12:44 | PDOC.PN ---
- Subjective Encounter Start Date: 11/09/17 Encounter Start Time: 12:20 Subjective: Expresses no complaint.. - Objective Resuscitation Status: Resuscitation Status FULL:Full Resuscitation Vital Signs & Weight: Vital Signs (12 hours) Temp Pulse Resp Pulse Ox 11/09/17 11:00 97.9 F 11/09/17 08:00 97.7 F 70 22 H 99 11/09/17 07:00 97.7 F 11/09/17 06:53 97 11/09/17 06:49 77 13 97 11/09/17 04:00 98.0 F Weight Admit Weight 170 lb Weight 175 lb 11.335 oz Most Recent Monitor Data Heart Rate from ECG 84 NIBP 100/47 NIBP BP-Mean 60 Respiration from ECG 19 SpO2 100 I&O: 11/08/17 11/09/17 11/10/17 06:59 06:59 06:59 Intake Total 190 1180 500 Output Total 1 0 Balance 189 1180 500 Result Diagrams: 11/09/17 04:25 11/09/17 04:25 Additional Labs: Accuchecks 11/09/17 11/09/17 11/08/17 11:55 06:21 20:49 POC Glucose 146 H 174 H 236 H 11/08/17 17:06 POC Glucose 242 H Phys Exam - Physical Examination Constitutional: NAD Neck: no JVD Respiratory: clear to auscultation bilateral Cardiovascular: RRR Gastrointestinal: soft Musculoskeletal: no edema Neurological: moves all 4 limbs Psychiatric: A&O x 3 Dx/Plan (1) Cardiomyopathy Code(s): I42.9 - CARDIOMYOPATHY, UNSPECIFIED Status: Acute Comment: s/p AICD. (2) Third degree AV block Code(s): I44.2 - ATRIOVENTRICULAR BLOCK, COMPLETE Status: Acute Plan: f/u with cardiology. Comment: s/p AICD with biventricular pacer (3) ESRD (end stage renal disease) on dialysis Code(s): N18.6 - END STAGE RENAL DISEASE; Z99.2 - DEPENDENCE ON RENAL DIALYSIS Status: Acute Plan: f/u with nephrology. Comment: Undregoing HD. (4) CAD (coronary artery disease) Code(s): I25.10 - ATHSCL HEART DISEASE OF [place] CORONARY ARTERY W/O ANG PCTRS Status: Chronic Qualifiers: Coronary Disease-Associated Artery/Lesion type: bypass graft [place] vs. transplanted heart: [place] heart Associated angina: without angina Qualified Code(s): I25.810 - Atherosclerosis of coronary artery bypass graft(s) without angina pectoris - Plan -: Continue current management. -: f/u with cardiology. * .
--- NOTE | 2017-11-09 20:24 | EKG ---
Test Reason : Blood Pressure : / mmHG Vent. Rate : 062 BPM Atrial Rate : 062 BPM P-R Int : 160 ms QRS Dur : 158 ms QT Int : 502 ms P-R-T Axes : 051 -51 113 degrees QTc Int : 509 ms Normal sinus rhythm with sinus arrhythmia Left axis deviation Left bundle branch block Abnormal ECG Confirmed by CARLENE POWELL ([id number]), editor newspaper VADIM SIMONS ([id number]) on 11/09/2017 8:23:25 PM Referred By: Confirmed By:CARLENE POWELL
[2017-11-09] MEDS: Atorvastatin Calcium 20 MG TAB PO SCH (21:34)
[2017-11-10 04:30] LABS: Anion Gap 21 mmol/L (10-20); BUN (Urea Nitrogen) 35 mg/dL (8.4-25.7); Calc. Creatinine Clearance 13 mL/min (70-130); Calcium 8.4 mg/dL (7.8-10.44); Carbon Dioxide 22 mmol/L (23-31); Chloride 94 mmol/L (98-107); Estimated GFR-MDRD 12; Glucose 167 mg/dL (83-110); Potassium 5.5 mmol/L (3.5-5.1); Sodium 131 mmol/L (136-145)
[2017-11-10 04:49] LABS: Anisocytosis SLIGHT = 6-15 cells (100X) (0-5/hpf); Band 1 % (5-11); Burr Cells SLIGHT = 2-5 cells (100X) (0-1/hpf); Eosinophils 3 % (0-10); Hemoglobin 11.6 g/dL (14.0-18.0); Lymphocytes 21 % (21-51); MDiff Complete? YES; Mean Corpuscular HGB CONC 33.7 g/dL (32.0-36.0); Mean Corpuscular Hemoglobin 32.9 pg (27.0-31.0); Mean Corpuscular Volume 97.5 fl (80.0-94.0); Mean Platelet Volume 10.6 fL (7.4-10.4); Monocytes 8 % (0-10); Neutrophil 67 % (42-75); PLT Morphology Comment Appears Adequate; Platelet Count 115 thou/uL (130-400); Polychromasia SLIGHT = 2-3 cells (100X) (0-2/hpf); RBC Distribution Width 17.4 % (11.5-14.5); Red Blood Cell (RBC) Count 3.54 mill/uL (4.70-6.10); White Blood Cell (WBC) Count 10.4 thou/uL (4.8-10.8)
[2017-11-10] MEDS: Levothyroxine Sodium 112 MCG TAB PO SCH (05:47)
[2017-11-10] MEDS: HumaLOG 300 UNITS/3 ML VIAL SC PRN ×4 (05:49→21:40)
[2017-11-10] MEDS: Clindamycin 150 MG CAP PO SCH ×3 (08:57→20:45)
[2017-11-10] MEDS: Benzonatate 100 MG CAP PO SCH ×3 (08:57→20:45)
[2017-11-10] MEDS: Famotidine 20 MG TAB PO SCH (08:57)
--- NOTE | 2017-11-10 10:07 | PDOC.PN ---
- Subjective Encounter Start Date: 11/10/17 Encounter Start Time: 09:15 Subjective: No complaint expressed. - Objective Resuscitation Status: Resuscitation Status FULL:Full Resuscitation Vital Signs & Weight: Vital Signs (12 hours) Temp Pulse Resp Pulse Ox 11/10/17 07:18 97.6 F 79 18 100 11/10/17 07:00 97.6 F 11/10/17 06:43 98 11/10/17 06:41 79 19 78 L 11/10/17 04:00 97.7 F 11/10/17 00:30 73 13 100 11/10/17 00:00 97.9 F Weight Admit Weight 170 lb Weight 176 lb 9.444 oz Most Recent Monitor Data Heart Rate from ECG 79 NIBP 90/42 NIBP BP-Mean 77 Respiration from ECG 27 SpO2 99 I&O: 11/09/17 11/10/17 11/11/17 06:59 06:59 06:59 Intake Total 1180 1630 290 Output Total 0 0 Balance 1180 1630 290 Result Diagrams: 11/10/17 03:17 11/10/17 03:18 Additional Labs: Accuchecks 11/10/17 11/09/17 11/09/17 05:45 21:37 16:40 POC Glucose 180 H 204 H 179 H 11/09/17 11:55 POC Glucose 146 H Phys Exam - Physical Examination HEENT: PERRLA Neck: no JVD Respiratory: clear to auscultation bilateral Cardiovascular: RRR Gastrointestinal: soft Musculoskeletal: no edema Neurological: moves all 4 limbs Psychiatric: A&O x 3 Dx/Plan (1) Cardiomyopathy Code(s): I42.9 - CARDIOMYOPATHY, UNSPECIFIED Status: Acute Comment: s/p AICD. (2) Third degree AV block Code(s): I44.2 - ATRIOVENTRICULAR BLOCK, COMPLETE Status: Acute Comment: s/ p AICD with biventricular pacer (3) ESRD (end stage renal disease) on dialysis Code(s): N18.6 - END STAGE RENAL DISEASE; Z99.2 - DEPENDENCE ON RENAL DIALYSIS Status: Acute Plan: f/u with Nephrology.. Fluid restriction Comment: Na is low. (4) CAD (coronary artery disease) Code(s): I25.10 - ATHSCL HEART DISEASE OF [place] CORONARY ARTERY W/O ANG PCTRS Status: Chronic Qualifiers: Coronary Disease-Associated Artery/Lesion type: bypass graft [place] vs. transplanted heart: [place] heart Associated angina: without angina Qualified Code(s): I25.810 - Atherosclerosis of coronary artery bypass graft(s) without angina pectoris - Plan -: Possible discharge tomorrow. * .
--- NOTE | 2017-11-10 12:54 | PRG ---
DATE OF SERVICE: 11/10/2017 SUBJECTIVE: Awake, alert, and responsive. He was dialyzed yesterday. He said he is ready to go domo e. OBJECTIVE: VITAL SIGNS: Pulse 81, sats 100% on 2 liters, respirations 20, pulse 80. CHEST: Revealed decreased breath sounds, no wheezing. CARDIAC: Normal S1, S2. No gallops. ABDOMEN: Soft, no mass. LABORATORY DATA: White count 10,000, hemoglobin and hematocrit is 11 and 33, platelet count 115. Cr eatinine 4.6. IMPRESSION: 1. Respiratory failure secondary to medication. 2. Chronic renal failure. 3. Congestive heart failure, status post pacemaker AICD. PLAN: From pulmonary standpoint of view, he can be transferred out of the ICU.
[2017-11-10] MEDS: Atorvastatin Calcium 20 MG TAB PO SCH (20:45)
[2017-11-11] MEDS: Levothyroxine Sodium 112 MCG TAB PO SCH (05:19)
[2017-11-11 05:40] LABS: Anion Gap 19 mmol/L (10-20); BUN (Urea Nitrogen) 53 mg/dL (8.4-25.7); Calc. Creatinine Clearance 10 mL/min (70-130); Calcium 8.4 mg/dL (7.8-10.44); Carbon Dioxide 27 mmol/L (23-31); Chloride 92 mmol/L (98-107); Estimated GFR-MDRD 9; Glucose 199 mg/dL (83-110); Potassium 4.6 mmol/L (3.5-5.1); Sodium 133 mmol/L (136-145)
[2017-11-11 05:43] LABS: Eosinophils 1 % (0-10); Hemoglobin 11.6 g/dL (14.0-18.0); Lymphocytes 13 % (21-51); MDiff Complete? YES; Mean Corpuscular HGB CONC 33.4 g/dL (32.0-36.0); Mean Corpuscular Hemoglobin 33.6 pg (27.0-31.0); Mean Platelet Volume 10.9 fL (7.4-10.4); Metamyelocyte 1 % (0-0); Monocytes 21 % (0-10); Neutrophil 64 % (42-75); PLT Morphology Comment Appears Adequate; Platelet Count 143 thou/uL (130-400); RBC Distribution Width 16.8 % (11.5-14.5); Red Blood Cell (RBC) Count 3.44 mill/uL (4.70-6.10); White Blood Cell (WBC) Count 11.1 thou/uL (4.8-10.8)
[2017-11-11] MEDS: HumaLOG 300 UNITS/3 ML VIAL SC PRN ×3 (06:25→22:32)
[2017-11-11] MEDS: Clindamycin 150 MG CAP PO SCH ×3 (09:05→22:31)
[2017-11-11] MEDS: Famotidine 20 MG TAB PO SCH (09:05)
[2017-11-11] MEDS: Benzonatate 100 MG CAP PO SCH ×3 (09:05→22:31)
--- NOTE | 2017-11-11 11:13 | PDOC.CTH ---
Cardiology Progress Note - Subjective He is doing much better. He denies any chest pain, tightness, pressure, SOB. He is tolerating dialysis well. - Objective Vital Signs Temp Pulse Resp Pulse Ox 11/11/17 08:00 97.5 F L 74 21 H 95 11/11/17 07:00 97.5 F L 11/11/17 06:50 98 11/11/17 06:46 72 21 H 96 11/11/17 04:00 97.5 F L 11/11/17 00:32 70 22 H 96 11/11/17 00:00 97.6 F Admit Weight 170 lb Weight 176 lb 12.972 oz 11/10/17 11/11/17 11/12/17 06:59 06:59 06:59 Intake Total 1630 5 250 Output Total 0 0 Balance 1630 2055 250 - Physical Examination General/Neuro: alert & oriented x3, NAD Neck: no JVD present Lungs: CTA, unlabored respirations Heart: RRR Abdomen: NT/ND Extremities: other: (no edema.) - Telemetry Telemetry Rhythm: NSR - Labs Result Diagrams: 11/11/17 04:17 11/11/17 04:17 Troponin/CKMB CK-MB (CK-2) 2.6 ng/mL (0-6.6) 11/08/17 11:49 Troponin I 0.427 ng/mL (< 0.028) H* 11/08/17 11:49 - Assessment/Plan 1. Syncope 2. Third degree AV Block, s/p Bi V AICD 3. Acute on chronic systolic heart failure 4. CAD, s/p CABG in 1998 5. Ischemic CM EF at 10-15% 6. ESRD on HD PLAN: - CUI to LAD is patent but after anastomosis there is an 80% lesion. - Unable to engage CUI to plan any kind of intervention. - SVG to LCx not found, likely occluded but SVG to RCA widely patent and gives collaterals to LAD. - Continue medical therapy. There is an option to do a left radial access to engage CUI from the arm as the issue is that his left subclavian is too tortuous but him and his are not interested in anything too invasive. - Continue medical therapy for now. BP borderline low to tolerate any BB or ACEI. - Home any time from, cardiac perspective on current regimen. Will try to up titrate heart failure medications fas an outpatient.
--- NOTE | 2017-11-11 12:00 | PDOC.PN ---
- Subjective Encounter Start Date: 11/11/17 Encounter Start Time: 11:59 CC: Cardiomyopathy Sub: pt denies dyspnea. c/o not getting enough sleep last night - Objective Resuscitation Status: Resuscitation Status FULL:Full Resuscitation Vital Signs & Weight: Vital Signs (12 hours) Temp Pulse Resp Pulse Ox 11/11/17 11:00 97.8 F 11/11/17 08:00 97.5 F L 74 21 H 95 11/11/17 07:00 97.5 F L 11/11/17 06:50 98 11/11/17 06:46 72 21 H 96 11/11/17 04:00 97.5 F L 11/11/17 00:32 70 22 H 96 11/11/17 00:00 97.6 F Weight Admit Weight 170 lb Weight 176 lb 12.972 oz Most Recent Monitor Data Heart Rate from ECG 73 NIBP 120/55 NIBP BP-Mean 63 Respiration from ECG 4 SpO2 95 I&O: 11/10/17 11/11/17 11/12/17 06:59 06:59 06:59 Intake Total 1630 2054 250 Output Total 0 0 Balance 1630 5 250 Result Diagrams: 11/11/17 04:17 11/11/17 04:17 Additional Labs: Accuchecks 11/11/17 11/10/17 11/10/17 11:20 21:41 16:33 POC Glucose 192 H 403 H 348 H Dx/Plan - Plan - Physical Examination General: Appears tired HEENT: PERRLA Neck: no JVD Respiratory: clear to auscultation bilateral, no wheezing, no rhonchi Cardiovascular: RRR, positive paced, no rubs, no gallop Gastrointestinal: soft, nttp, no guarding, no rebound tenderness Musculoskeletal: no edema Neurological: moves all 4 limbs Psychiatric: A&O x 3 Dx/Plan (1) Cardiomyopathy Code(s): I42.9 - CARDIOMYOPATHY, UNSPECIFIED Status: Acute Comment: s/p AICD. (2) Third degree AV block Code(s): I44.2 - ATRIOVENTRICULAR BLOCK, COMPLETE Status: Acute Comment: s/ p AICD with biventricular pacer (3) ESRD (end stage renal disease) on dialysis Code(s): N18.6 - END STAGE RENAL DISEASE; Z99.2 - DEPENDENCE ON RENAL DIALYSIS Status: Acute Plan: f/u with Nephrology.. waiting to setup HD chair for & SATURDAY Comment: Na is low. (4) CAD (coronary artery disease) Code(s): I25.10 - ATHSCL HEART DISEASE OF [place] CORONARY ARTERY W/O ANG PCTRS Status: Chronic Qualifiers: Coronary Disease-Associated Artery/Lesion type: bypass graft [place] vs. transplanted heart: [place] heart Associated angina: without angina Qualified Code(s): I25.810 - Atherosclerosis of coronary artery bypass graft(s) without angina pectoris - Plan Ok per cardio to discharge patient home Recommend medical management only waiting for HD chair setup case d/w pt & RN
--- NOTE | 2017-11-11 13:35 | PRG ---
DATE OF SERVICE: 11/11/2017 SERVICE: Pulmonary Medicine. INTERVAL HISTORY: The patient is doing fine from a respiratory standpoint. He denies any current ch est pain, shortness of breath, fevers or chills. There have been no overnight events. On Saturday, he went down for a cardiac catheterization. He got a little agitated while lying flat. He was given 1 mg of Versed and decompensated abruptly. He ended up getting intubated for a very short period of t pallavi, but once the Versed wear off, he was subsequently extubated. Since then, he has not had any add itional respiratory events. He denies any current shortness of breath or cough. PHYSICAL EXAMINATION: VITAL SIGNS: Afebrile, pulse 73, blood pressure 120/55, respirations 17, saturation 95% on 2 liters nasal cannula. HEENT: Normocephalic, atraumatic. Sclerae are white, conjunctivae pink. Oral and nasal mucosa is m oist without lesions. LUNGS: Decent air entry. There is no prolonged expiratory phase or wheezing. 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 HEART: Normal rate, regular. ABDOMEN: Soft, nontender, nondistended. Bowel sounds are positive. MUSCULOSKELETAL: No cyanosis or clubbing. There is 1+ pitting in the bilateral lower extremities. GENITOURINARY: No [place]. NEUROLOGIC: Grossly nonfocal. LABORATORY DATA: WBC 11.1, hemoglobin 11.6, platelets 143,000 and improving. INR is 1.8. Creatinin e is 6.13, potassium is 4.6, BUN is 53, and sodium is 133. ASSESSMENT: 1. End-stage renal disease. 2. Third degree heart block, status post automatic implantable cardioverter-defibrillator placement. 3. Acute systolic heart failure with 10% ejection fraction. 4. Severe mitral regurgitation. DISCUSSION AND PLAN: Once again, the patient can be transitioned out of the ICU to the [facility]. Pulmon tri Critical Care will continue to follow while he remains in this location. We will wean oxygen camacho y as tolerated.
[2017-11-11] MEDS ORDERED: Clopidogrel Bisulfate 75 MG TAB ONE (21:14)
[2017-11-11] MEDS: Atorvastatin Calcium 20 MG TAB PO SCH (22:31)
[2017-11-12] MEDS: Levothyroxine Sodium 112 MCG TAB PO SCH (06:06)
[2017-11-12 09:05] VITALS: BMI 26.0
[2017-11-12] MEDS: Clindamycin 150 MG CAP PO SCH ×2 (09:30→15:50)
--- NOTE | 2017-11-12 10:05 | PRG ---
DATE OF SERVICE: 11/12/2017 SERVICE: Pulmonary Medicine. INTERVAL HISTORY: The patient is doing fine from a cardiovascular and respiratory standpoint. He de nies any current shortness of breath, fevers, chills, nausea, or vomiting. He would like to use Ensu re. He does not have much of an appetite for food, but does enjoy getting his protein from that. PHYSICAL EXAMINATION: VITAL SIGNS: Afebrile, pulse 79, blood pressure 104/51, respirations 16, saturation 95% on 2 liters nasal cannula. GENERAL: The patient is awake, alert, no apparent distress. LUNGS: Decent air entry. There is no prolonged expiratory phase or wheezing present. HEART: Normal rate, regular. ABDOMEN: Soft, nontender, nondistended. Bowel sounds are positive. MUSCULOSKELETAL: No cyanosis or clubbing. There is 1+ pitting in the bilateral lower extremities. NEUROLOGIC: Grossly nonfocal. ASSESSMENT: 1. End-stage renal disease. 2. Third degree heart block, status post AICD placement. 3. Acute systolic heart failure with 10% ejection fraction. 4. Severe mitral regurgitation. DISCUSSION AND PLAN: We will continue working on getting him closer to euvolemic. He is a little vo lume overloaded today. Hopefully, he will be able to tolerate dialysis well today. We will provide him with Ensure 3 times daily. Pulmonary or Critical Care will continue to follow while he remains i n this location. I will wean oxygen as tolerated. Hopefully, we will get him off of oxygen in a day or two. We will continue to making efforts on mobilizing the patient to improve strength.
[2017-11-12] MEDS: Famotidine 20 MG TAB PO SCH (12:09)
[2017-11-12] MEDS: Benzonatate 100 MG CAP PO SCH ×2 (12:09→21:38)
[2017-11-12] MEDS: HumaLOG 300 UNITS/3 ML VIAL SC PRN ×3 (12:12→21:38)
--- NOTE | 2017-11-12 14:50 | PDOC.PN ---
- Subjective Encounter Start Date: 11/12/17 Encounter Start Time: 10:00 Subjective: pt up in bed no complains - Objective Resuscitation Status: Resuscitation Status DNR:Do Not Resuscitate Vital Signs & Weight: Vital Signs (12 hours) Temp Pulse Resp BP Pulse Ox 11/12/17 11:34 82 16 95 11/12/17 07:43 98.2 F 79 16 104/51 L 95 11/12/17 06:50 79 16 95 11/12/17 04:58 99 11/12/17 04:50 96 11/12/17 04:00 97.2 F L 83 18 100/50 L 98 Weight Admit Weight 166 lb 14.239 oz Weight 176 lb 1.6 oz Most Recent Monitor Data Heart Rate from ECG 73 NIBP 112/60 NIBP BP-Mean 87 Respiration from ECG 19 SpO2 100 I&O: 11/11/17 11/12/17 11/13/17 06:59 06:59 06:59 Intake Total 2054 1090 Output Total 0 Balance 2054 1090 Result Diagrams: 11/11/17 04:17 11/11/17 04:17 Additional Labs: Accuchecks 11/12/17 11/12/17 11/11/17 12:05 06:34 21:27 POC Glucose 326 H 225 H 215 H Phys Exam - Physical Examination HEENT: PERRLA Neck: no nodes Respiratory: wheezing present (mild with mild rhonchi) Cardiovascular: RRR, no significant murmur Gastrointestinal: soft, non-tender Dx/Plan - Plan * * * cardiomyopathy * 3rd degree AV block * ESRD * CAD * malnutrition * * plan: pt's ef is 10% he has a AICD, incision is healing. Per pt is a DNR. Pt has a fistula in his right hand and a cath to his right chest wall. dialysis per nephro. Pt appears to be overloaded hoping pt will tolerate dialysis today. pt was on oxygen will discontinue and monitor will add nepro TID for supplement. states that he has not been eating much dispo pt to go to snf ( Review of Systems - Review of Systems Eyes: negative: Pain, Vision Change, Conjunctivae Inflammation, Eyelid Inflammation, Redness, Other ENT: negative: Ear Pain, Ear Discharge, Nose Pain, Nose Discharge, Nose Congestion, Mouth Pain, Mouth Swelling, Throat Pain, Throat Swelling, Other Respiratory: negative: Cough, Dry, Shortness of Breath, Hemoptysis, SOB with Excertion, Pleuritic Pain, Sputum, Wheezing Cardiovascular: negative: chest pain, palpitations, orthopnea, paroxysmal nocturnal dyspnea, edema, light headedness, other Gastrointestinal: negative: Nausea, Vomiting, Abdominal Pain, Diarrhea, Constipation, Melena, Hematochezia, Other - Medications/Allergies Allergies/Adverse Reactions: Allergies Allergy/AdvReac Type Severity Reaction Status Date / Time Sulfa (Sulfonamide Allergy Unknown Verified 11/02/17 06:23 Antibiotics) amoxicillin Allergy Hives Verified 11/02/17 06:23 Medications: Current Medications Acetaminophen (Tylenol) 1,000 mg PO Q6H PRN PRN Reason: Headache/Fever or Mild Pain Last Admin: 11/10/17 20:45 Dose: 1,000 mg Albuterol/Ipratropium (Duoneb) 3 ml NEB [id number] [facility] Last Admin: 11/12/17 11:34 Dose: 3 ml Aspirin (Aspirin Chewable) 81 mg PO DAILY [facility] Last Admin: 11/12/17 09:30 Dose: 81 mg Atorvastatin Calcium (Lipitor) 40 mg PO HS [facility] Last Admin: 11/11/17 22:31 Dose: 40 mg Benzonatate (Tessalon) 100 mg PO BID [facility] Clindamycin HCl (Cleocin) 300 mg PO TID [facility] Stop: 11/12/17 15:01 Last Admin: 11/12/17 09:30 Dose: 300 mg Dextrose/Water (Dextrose 50%) 25 gm SLOW IVP PRN PRN PRN Reason: Hypoglycemia Famotidine (Pepcid) 20 mg PO DAILY [facility] Last Admin: 11/12/17 12:09 Dose: 20 mg Glucagon (Glucagon) 1 mg IM PRN PRN PRN Reason: Hypoglycemia Hydralazine HCl (Apresoline) 10 mg SLOW IVP Q4H PRN PRN Reason: Systolic BP > 180 Dextrose/Water (D5w) 1,000 mls @ 0 mls/hr IV .Q0M PRN; As Directed PRN Reason: Hypoglycemia Insulin Human Lispro (Humalog) 0 units SC .BEDTIME SLIDING SC PRN PRN Reason: Bedtime Correctional Scale Last Admin: 11/12/17 12:12 Dose: 4 unit Insulin Human Lispro (Humalog) 0 units SC .MODERATE SLIDING SC PRN; Protocol PRN Reason: MODERATE SLIDING SCALE Last Admin: 11/11/17 06:25 Dose: 4 unit Levothyroxine Sodium (Synthroid) 112 mcg PO 0600 [facility] Last Admin: 11/12/17 06:06 Dose: 112 mcg Ondansetron HCl (Zofran) 4 mg IVP Q6H PRN PRN Reason: Nausea/Vomiting Sodium Chloride ([place] Nasal [place] 0.65%) 0 ml EA NARE PRN PRN PRN Reason: Nasal Dryness Sodium Chloride (Flush - Normal Saline) 10 ml IVF PRN PRN PRN Reason: Saline Flush
--- NOTE | 2017-11-12 17:19 | PDOC.CTH ---
Cardiology Progress Note - Subjective No new issues. He denies any chest pain, tightness, pressure, SOB. - Objective Vital Signs Temp Pulse Pulse Pulse Resp BP BP 11/12/17 15:30 97.9 F 76 16 11/12/17 15:00 83 93 103/63 104/58 L 11/12/17 11:55 97.1 F L 69 16 11/12/17 11:34 82 16 11/12/17 07:43 98.2 F 79 16 11/12/17 06:50 79 16 BP Pulse Ox Pulse Ox Pulse Ox 11/12/17 15:30 98/54 L 93 L 11/12/17 15:00 93 L 94 L 11/12/17 11:55 109/60 93 L 11/12/17 11:34 95 11/12/17 07:43 104/51 L 95 11/12/17 06:50 95 Admit Weight 166 lb 14.239 oz Weight 176 lb 1.6 oz 11/11/17 11/12/17 11/13/17 06:59 06:59 06:59 Intake Total 2054 109 Output Total 0 Balance 2054 1090 - Physical Examination General/Neuro: alert & oriented x3, NAD Neck: no JVD present Lungs: CTA, unlabored respirations Heart: RRR Abdomen: NT/ND Extremities: other: (no edema.) - Telemetry Telemetry Rhythm: NSR - Labs Result Diagrams: 11/11/17 04:17 11/11/17 04:17 Troponin/CKMB CK-MB (CK-2) 2.6 ng/mL (0-6.6) 11/08/17 11:49 Troponin I 0.427 ng/mL (< 0.028) H* 11/08/17 11:49 - Assessment/Plan 1. Syncope 2. Third degree AV Block, s/p Bi V AICD 3. Acute on chronic systolic heart failure 4. CAD, s/p CABG in 1998 5. Ischemic CM EF at 10-15% 6. ESRD on HD PLAN: - Continue medical therapy for now. BP borderline low to tolerate any BB or ACEI. - Home any time from, cardiac perspective on current regimen. - Will sing off. Please call with any questions.
[2017-11-12] MEDS: Atorvastatin Calcium 20 MG TAB PO SCH (21:38)
[2017-11-13] MEDS: Levothyroxine Sodium 112 MCG TAB PO SCH (06:07)
[2017-11-13] MEDS: Famotidine 20 MG TAB PO SCH (08:58)
[2017-11-13] MEDS: Benzonatate 100 MG CAP PO SCH ×2 (08:59→20:53)
[2017-11-13] MEDS ORDERED: Insulin Detemir 100 UNITS/ML 6 UNITS in Pre-Filled Syringe 1 EACH SC SCH (09:30)
[2017-11-13 10:20] LABS: Anion Gap 24 mmol/L (10-20); BUN (Urea Nitrogen) 56 mg/dL (8.4-25.7); Calc. Creatinine Clearance 10 mL/min (70-130); Calcium 8.4 mg/dL (7.8-10.44); Carbon Dioxide 18 mmol/L (23-31); Chloride 93 mmol/L (98-107); Estimated GFR-MDRD 9; Glucose 154 mg/dL (83-110); Potassium 5.6 mmol/L (3.5-5.1); Sodium 129 mmol/L (136-145)
[2017-11-13 10:51] LABS: Hemoglobin 12.1 g/dL (14.0-18.0); Mean Corpuscular HGB CONC 32.1 g/dL (32.0-36.0); Mean Corpuscular Hemoglobin 32.7 pg (27.0-31.0); Mean Platelet Volume 11.3 fL (7.4-10.4); Platelet Count 144 thou/uL (130-400); RBC Distribution Width 17.8 % (11.5-14.5); Red Blood Cell (RBC) Count 3.71 mill/uL (4.70-6.10); White Blood Cell (WBC) Count 10.6 thou/uL (4.8-10.8)
[2017-11-13 11:07] LABS: Band 3 % (5-11); Burr Cells SLIGHT = 2-5 cells (100X) (0-1/hpf); Lymphocytes 15 % (21-51); MDiff Complete? YES; Macrocytosis MODERATE=16-30 cells (100X) (0-5/hpf); Monocytes 7 % (0-10); Neutrophil 75 % (42-75); PLT Morphology Comment Appears Adequate; Polychromasia MODERATE = 3-4 cells (100X) (0-2/hpf); Target Cells SLIGHT = 2-5 cells (100X) (0-1/hpf)
[2017-11-13] MEDS: HumaLOG 300 UNITS/3 ML VIAL SC PRN (12:00)
--- NOTE | 2017-11-13 15:01 | PRG ---
DATE OF SERVICE: 11/13/2017 From a cardiovascular and respiratory standpoint he is doing well. He has no complaints. There were no events. PHYSICAL EXAMINATION: VITAL SIGNS: Blood pressure 103/56, respirations 18, saturation 100% now on room air. GENERAL: The patient is awake, alert, in no apparent distress. LUNGS: Excellent air entry. No prolongation of the expiratory phase. Minimal crackles are present. No wheezing or rhonchi are appreciated. HEART: Normal rate, regular. ABDOMEN: Soft, nontender, nondistended. Bowel sounds are positive. MUSCULOSKELETAL: No cyanosis or clubbing. There is no pitting in the bilateral lower extremities. LABORATORY DATA: WBC 10.6, hemoglobin 12.1, platelets 144,000, and roughly stable. Potassium 5.6 and sodium 129. BUN 56, bicarbonate 18, anion gap 24. ASSESSMENT: 1. End-stage renal disease. 2. Third-degree heart block, status post automatic implantable cardioverter defibrillator placement. 3. Acute systolic heart failure with 10% ejection fraction. 4. Severe mitral regurgitation DISCUSSION AND PLAN: At this point, the patient has been weaned down to room air. He has no acute lung issues. He remains at extraordinarily high risk for having recurrent episodes of respiratory events. This is because of his profound heart disease, severe ejection fraction, and end-stage renal process. If he has a respiratory event, please notify me, but otherwise, I will sign off. MTDD
[2017-11-13] MEDS: Atorvastatin Calcium 20 MG TAB PO SCH (20:53)
[2017-11-13] MEDS ORDERED: Senokot S 8.6-50 MG TAB PO SCH (21:00)
--- NOTE | 2017-11-13 22:03 | PDOC.PN ---
- Subjective Encounter Start Date: 11/13/17 Encounter Start Time: 10:00 Subjective: pt up in bed complains of pain to his lower back - Objective Resuscitation Status: Resuscitation Status DNR:Do Not Resuscitate Vital Signs & Weight: Vital Signs (12 hours) Temp Pulse Resp BP Pulse Ox 11/13/17 20:40 85 18 92 L 11/13/17 12:41 83 16 98 11/13/17 12:15 97.8 F 80 18 103/56 L 100 Weight Admit Weight 166 lb 14.239 oz Weight 178 lb 12.8 oz Most Recent Monitor Data Heart Rate from ECG 73 NIBP 112/60 NIBP BP-Mean 87 Respiration from ECG 19 SpO2 100 I&O: 11/12/17 11/13/17 11/14/17 06:59 06:59 06:59 Intake Total 1090 960 407 Output Total 0 Balance 1090 960 407 Result Diagrams: 11/13/17 09:50 11/13/17 09:50 Additional Labs: Accuchecks 11/13/17 11/13/17 11/13/17 17:06 12:00 05:40 POC Glucose 135 H 204 H 117 H 11/12/17 16:38 POC Glucose 326 H Phys Exam - Physical Examination HEENT: PERRLA Neck: no nodes Respiratory: no wheezing, no rales Cardiovascular: RRR, no significant murmur pt's bilateral finger tips are blue, pulse on left radial is normal, fistula on right thrill present but faint Gastrointestinal: soft, non-tender Musculoskeletal: pulses present mild paraspinal pain on plapation of lower back area Neurological: non-focal Dx/Plan - Plan cardiomyopathy systolic ef of 10% * 3rd degree AV block * ESRD * CAD * malnutrition * * plan: pt's ef is 10% he has a AICD, incision is healing. Per pt is a DNR. Pt has a fistula in his right hand and a cath to his right chest wall. dialysis per nephro. Pt appears to be overloaded hoping pt will tolerate dialysis today. pt was on oxygen will discontinue and monitor will add nepro TID for supplement. states that he has not been eating much spoke with pt's and daughter in law about pt's overall hospital stay. inquire about hospice. Discussed with and daughter in law that if pt does not tolerate rehab and continues to decline then hospice would be thought of given pt's multiple medical conditions. Pt also wants to keep fighting. Did speak with nephrology about his fingertips being cyanotic and improving with warm compress, however nephrology did not seem to be concern. Cyanosis is not unilateral then would get dopplers, but seem to be bilateral most likley due to poor circulation given his ef of 10%. dispo pt to go to snf * . Review of Systems - Review of Systems Eyes: negative: Pain, Vision Change, Conjunctivae Inflammation, Eyelid Inflammation, Redness, Other ENT: negative: Ear Pain, Ear Discharge, Nose Pain, Nose Discharge, Nose Congestion, Mouth Pain, Mouth Swelling, Throat Pain, Throat Swelling, Other Respiratory: negative: Cough, Dry, Shortness of Breath, Hemoptysis, SOB with Excertion, Pleuritic Pain, Sputum, Wheezing Gastrointestinal: negative: Nausea, Vomiting, Abdominal Pain, Diarrhea, Constipation, Melena, Hematochezia, Other Musculoskeletal: Back Pain Skin: negative: Rash, Lesions, Danny, Bruising, Other - Medications/Allergies Allergies/Adverse Reactions: Allergies Allergy/AdvReac Type Severity Reaction Status Date / Time Sulfa (Sulfonamide Allergy Unknown Verified 11/02/17 06:23 Antibiotics) amoxicillin Allergy Hives Verified 11/02/17 06:23 Medications: Current Medications Acetaminophen (Tylenol) 1,000 mg PO Q6H PRN PRN Reason: Headache/Fever or Mild Pain Last Admin: 11/10/17 20:45 Dose: 1,000 mg Albuterol/Ipratropium (Duoneb) 3 ml NEB [id number] [facility] Last Admin: 11/14/17 00:38 Dose: 3 ml Allopurinol (Zyloprim) 100 mg PO DAILY [facility] Aspirin (Aspirin Chewable) 81 mg PO DAILY [facility] Last Admin: 11/13/17 08:58 Dose: 81 mg Atorvastatin Calcium (Lipitor) 40 mg PO HS [facility] Last Admin: 11/13/17 20:53 Dose: 40 mg Benzonatate (Tessalon) 100 mg PO BID [facility] Last Admin: 11/13/17 20:53 Dose: 100 mg Dextrose/Water (Dextrose 50%) 25 gm SLOW IVP PRN PRN PRN Reason: Hypoglycemia Famotidine (Pepcid) 20 mg PO DAILY [facility] Last Admin: 11/13/17 08:58 Dose: 20 mg Glucagon (Glucagon) 1 mg IM PRN PRN PRN Reason: Hypoglycemia Hydralazine HCl (Apresoline) 10 mg SLOW IVP Q4H PRN PRN Reason: Systolic BP > 180 Dextrose/Water (D5w) 1,000 mls @ 0 mls/hr IV .Q0M PRN; As Directed PRN Reason: Hypoglycemia Insulin Detemir 6 units/ (Miscellaneous Medication) 0.06 mls @ 0 mls/hr SC QAM [facility] Insulin Human Lispro (Humalog) 0 units SC .BEDTIME SLIDING SC PRN PRN Reason: Bedtime Correctional Scale Last Admin: 11/12/17 21:38 Dose: 4 unit Insulin Human Lispro (Humalog) 0 units SC .MODERATE SLIDING SC PRN; Protocol PRN Reason: MODERATE SLIDING SCALE Last Admin: 11/13/17 12:00 Dose: 4 unit Levothyroxine Sodium (Synthroid) 112 mcg PO 0600 [facility] Last Admin: 11/13/17 06:07 Dose: 112 mcg Ondansetron HCl (Zofran) 4 mg IVP Q6H PRN PRN Reason: Nausea/Vomiting Senna/Docusate Sodium (Senokot S) 1 tab PO BID [facility] Last Admin: 11/13/17 20:53 Dose: 1 tab Sodium Chloride ([place] Nasal [place] 0.65%) 0 ml EA NARE PRN PRN PRN Reason: Nasal Dryness Sodium Chloride (Flush - Normal Saline) 10 ml IVF PRN PRN PRN Reason: Saline Flush
--- NOTE | 2017-11-13 23:01 | EKG ---
Test Reason : STAT Blood Pressure : / mmHG Vent. Rate : 050 BPM Atrial Rate : 050 BPM P-R Int : 194 ms QRS Dur : 152 ms QT Int : 542 ms P-R-T Axes : 082 -52 114 degrees QTc Int : 494 ms Sinus bradycardia with sinus arrhythmia Left axis deviation Left bundle branch block Abnormal ECG When compared with ECG of 01-NOV-2017 23:11, (Unconfirmed) T wave inversion more evident in Anterior leads Confirmed by Ernestine KINNEY ([id number]) on 11/13/2017 11:01:18 PM Referred By: Confirmed By:Ernestine KINNEY
[2017-11-14] MEDS: Levothyroxine Sodium 112 MCG TAB PO SCH (06:32)
[2017-11-14] MEDS ORDERED: Allopurinol 100 MG TAB PO SCH (09:00)
[2017-11-14] MEDS ORDERED: Insulin Detemir 100 UNITS/ML 6 UNITS in Pre-Filled Syringe 1 EACH SC SCH (09:00)
[2017-11-14 10:29] VITALS: TEMP 98.9
[2017-11-14 10:53] VITALS: BP 90/50
--- NOTE | 2017-11-15 11:50 | DIS ---
DATE OF ADMISSION: 11/02/2017 DATE OF DISCHARGE: 11/14/2017 DISCHARGE DIAGNOSES: Is as the followin. Third-degree AV block. 2. Acute on chronic systolic heart failure. 3. End-stage renal disease. 4. Coronary artery disease. 5. Malnutrition. 6. Severe mitral regurgitation. 7) sinus ambika HISTORY OF PRESENT ILLNESS: Patient is a very pleasant 87-year-old male who initially presented to the hospital with complaints of shortness of breath. Patient also had some chest pain at that time. Patient underwent a CT angiogram of the chest that showed no pulmonary embolism. However, he was started on a heparin drip for possible concerns of elevated troponins for possible cardiac-related problems. Patient then was seen by Cardiology; however , on 11/02/2017, patient had an episode of bradycardia and at that time a code green was called and patient was taken to the CCU for further evaluation. At that time, his beta-thomas was discontinued. Patient underwent an echocardiogram, which indicated an EF of 10%-15% with [id number] tricuspid regurgitation, mild aortic regurgitation, and [id number] mitral regurgitation. Patient's EF had worsened from the prior ones. Patient then was seen by Electrophysiology and underwent a biventricular ICD, given intermittent third-degree AV block and AV junctional escape rhythm. Patient also had a combination of pacemaker and ICD inserted. Patient's hospital stay was uneventful. However, on 11/09, patient had change in level of consciousness , since after taking patient to the [facility], I believe once he received some sedation. At this time, patient underwent a CT angiogram which did not indicate any intracranial perfusion deficits. Patient then was transferred to critical care for closer monitoring. Patient's cardiac catheterization indicated the CUI to LAD is patent, but after the anastomosis, there was an 80 % lesion, unable to engage CUI and no plans or intervention. SVG to LCX not found likely occluded, but SVG to RCA is widely patent with collaterals to LAD. Recommended medical therapy after patient's catheterization. Patient discussed with patient's family including the and family member for possible addressing patient's code status and also possible hospice in the future given patient's multiple comorbidities. However, patient at this time felt he was not ready for this and wanted everything to be done. Patient also was found to have mild anemia of hemoglobin of 12.1. Patient was discharged to snf facility for strengthening. Patient also was found to have hyperkalemia at this time. Patient underwent dialysis and I did speak with the dialysis nurse who stated that they had changed his dialysis fluid to decrease to avoid hyperkalemia. Patient also was noted on discharge to have significant cyanosis to bilateral digits of the upper extremities and the toes. At this time, I did call Vascular Surgery in regard to this concern, however, Vascular Surgery was not too impressed, given that patient does have severe peripheral vascular disease. I also called Nephrology, Dr. Aparicio in regard to this and he did not seem to be very concerned either. Patient had these changes in bilateral upper extremities and bilateral lower extremities. His feet were cool to touch and a pulse of dorsalis pedis were very faint to palpate. Patient will follow up as outpatient with Cardiology and with PCP and renal. PHYSICAL EXAMINATION: VITAL SIGNS: On discharge 98.5, 89, 16, and 100% on 2 liters, blood pressure was 100/50. GENERAL: Awake, alert, oriented x3. CV: S1, S2 present. Mild systolic murmur in the left sternal border and left chest area. LUNGS: Mild crackles to bilateral lower bases. ABDOMEN: Soft, nontender. Bowel sounds are present x2. EXTREMITIES: He does have a fistula in his right hand. Also, has a tunneled catheter on the right chest has a pacemaker to the left chest area. Incision looks stable. He does have some cyanosis noted in bilateral tips of the fingers and toes. DISCHARGE MEDICATIONS: As following patient to aspirin 81 mg daily, levothyroxine 112 mcg daily, (ipratropium) DuoNebs q.6 hours, insulin 6 units q.a.m., Humalog moderate scale, Pepcid 20 mg daily, clindamycin 300 mg p.o. t.i.d., Lipitor 40 mg at bedtime, and allopurinol 100 mg daily. MTDD
--- NOTE | 2017-11-15 15:15 | ADD-CON ---
ADDENDUM This is electrophysiology consultation dictated on 11/04/2017. FAMILY HISTORY: Negative for arrhythmias, sudden cardiac , and early onset of coronary artery d isease. SOCIAL HISTORY: A 40 pack-year history of smoking, quit remotely. Positive for 1-2 alcoholic drinks a week. Negative for any illicit drugs. RESIDENT: [facility].
== END 2017-11-14 09:30 | DRG 224 ==
LOC: ERS 23:00 → 2SW 11-02 04:03 → CCU 11-02 11:17 → 2NO 11-07 14:38 → CCU 11-08 11:35 → 2NO 11-11 17:14
PROVIDERS: ADMIT Family Medicine; ATTEND Family Medicine
PROC: 5A1D70Z Performance of Urinary Filtration, Intermittent, Less than 6 Hours Per Day (ICD-10-PCS; 2017-11-02)
PROC: 0JH609Z Insertion of Cardiac Resynchronization Defibrillator Pulse Generator into Chest Subcutaneous Tissue and Fascia, Open Approach (ICD-10-PCS; principal; 2017-11-05)
PROC: 02HL3KZ Insertion of Defibrillator Lead into Left Ventricle, Percutaneous Approach (ICD-10-PCS; 2017-11-05)
PROC: 02HK3KZ Insertion of Defibrillator Lead into Right Ventricle, Percutaneous Approach (ICD-10-PCS; 2017-11-05)
PROC: 5A1D70Z Performance of Urinary Filtration, Intermittent, Less than 6 Hours Per Day (ICD-10-PCS; 2017-11-05)
PROC: 5A1D70Z Performance of Urinary Filtration, Intermittent, Less than 6 Hours Per Day (ICD-10-PCS; 2017-11-07)
PROC: 4A023N7 Measurement of Cardiac Sampling and Pressure, Left Heart, Percutaneous Approach (ICD-10-PCS; 2017-11-08)
PROC: B2181ZZ Fluoroscopy of Left Internal Mammary Bypass Graft using Low Osmolar Contrast (ICD-10-PCS; 2017-11-08)
PROC: B2121ZZ Fluoroscopy of Single Coronary Artery Bypass Graft using Low Osmolar Contrast (ICD-10-PCS; 2017-11-08)
PROC: 0BH17EZ Insertion of Endotracheal Airway into Trachea, Via Natural or Artificial Opening (ICD-10-PCS; 2017-11-08)
PROC: 5A1935Z Respiratory Ventilation, Less than 24 Consecutive Hours (ICD-10-PCS; 2017-11-08)
PROC: 5A1D70Z Performance of Urinary Filtration, Intermittent, Less than 6 Hours Per Day (ICD-10-PCS; 2017-11-09)
PROC: 5A1D70Z Performance of Urinary Filtration, Intermittent, Less than 6 Hours Per Day (ICD-10-PCS; 2017-11-11)
PROC: 5A1D70Z Performance of Urinary Filtration, Intermittent, Less than 6 Hours Per Day (ICD-10-PCS; 2017-11-13)
DX: I44.2 Atrioventricular block, complete (principal); N18.6 End stage renal disease; J96.90 Respiratory failure, unspecified, unspecified whether with hypoxia or hypercapnia; G93.41 Metabolic encephalopathy; I50.23 Acute on chronic systolic (congestive) heart failure; I13.2 Hypertensive heart and chronic kidney disease with heart failure and with stage 5 chronic kidney disease, or end stage renal disease; E46 Unspecified protein-calorie malnutrition; I24.8 Other forms of acute ischemic heart disease; E11.21 Type 2 diabetes mellitus with diabetic nephropathy; E87.5 Hyperkalemia; Z78.1 Physical restraint status; E11.22 Type 2 diabetes mellitus with diabetic chronic kidney disease; Z99.2 Dependence on renal dialysis; E03.9 Hypothyroidism, unspecified; K21.9 Gastro-esophageal reflux disease without esophagitis; E78.5 Hyperlipidemia, unspecified; Z66 Do not resuscitate; I25.10 Atherosclerotic heart disease of native coronary artery without angina pectoris; D63.1 Anemia in chronic kidney disease; I25.5 Ischemic cardiomyopathy; R74.0 Nonspecific elevation of levels of transaminase and lactic acid dehydrogenase [LDH]; I34.0 Nonrheumatic mitral (valve) insufficiency; Z68.25 Body mass index [BMI] 25.0-25.9, adult; Z88.0 Allergy status to penicillin; Z88.2 Allergy status to sulfonamides; Z79.4 Long term (current) use of insulin; Z79.82 Long term (current) use of aspirin; Z79.899 Other long term (current) drug therapy; Z95.1 Presence of aortocoronary bypass graft
CPT/HCPCS: 0042T; 33225; 33249; 36005; 36415; 36416; 70450; 70496; 70498; 71045; 71046; 71275; 75820; 76705; 80048; 80053; 81003; 81015; 82550; 82553; 82805; 83690; 83735; 83880; 84443; 84484; 85007; 85025; 85027; 85379; 85610; 85730; 90935; 93005; 93010; 93306; 93455; 93641; 94640; 96365; 96376; 99152; C1769; C1777; C1882; C1898; C1900; G0257; G8978-GP-CK; G8978-GP-CL; G8979-GP-CJ; G8996-GN-CI; G8997-GN-CI; J0171; J1265; J1644; J1815; J1956; J2001; J2250; J2997; J3490; J7070; J7620; P9045; S0020